=== PATIENT | male | born 1945 | race Caucasian/White ===

== ENCOUNTER → 2017-09-08 11:58 | Outpatient (CLI) | payer MEDICARE, BC, SELFPAY ==
--- NOTE | 2017-09-08 12:04 | RAD_ITS ---
STUDY: X-RAY - RIGHT SHOULDER REASON FOR EXAM: Male, 72 years old. No known injury. Right shoulder pain TECHNIQUE: 4 view(s) of the shoulder. COMPARISON: None. FINDINGS: Normal glenohumeral articulation. There is degenerative arthrosis of the acromioclavicular joint without inferior osseous spur formation. Normal acromion. Normal humeral head and visualized proximal humerus. The soft tissue structures are unremarkable. Normal visualized pulmonary apex. RAD/Shoulder min 2 Views IMPRESSION: Degenerative changes without acute findings Electronically Signed: Kanu العلي DO at 18:56 EST Tel , Service support ,
== END ==
PROVIDERS: Family Provider Family Medicine; PCP Family Medicine; Visit Provider Family Medicine
DX: M25.511 Pain in right shoulder (principal)
CPT/HCPCS: 73030

== ENCOUNTER 2017-10-16 12:00 | Outpatient (RCR) | payer MEDICARE, BC, SELFPAY ==
--- NOTE | 2017-10-16 12:27 | HP.PTDCSUM ---
HP - PT D/C Summary It has been my pleasure to treat JEROME KRUGER under orders from DR.PNIELS Dheeraj for the diagnosis of Right Shoulder Pain for a total of 8 visit(s). Discharge Date: 10/16/17 Please see the following information for a summary of their discharge status. - Subjective Subjective: Seen happy with progress. ADLS' AND HOUSEWORK TASKS - Pain R SH Pain Intensity (Out of 10): 0 - Overall Improvement % Improvement: 100 - Objective Objective/Function: POSTURE: WFL. AROM: Shoulder flexion/abd 170 degrees ,ER 90. MMT: RTC/DELTOID 4/5. NUREO: intact. PALPATION: unremarkable - Goals Goal 1:: Patient will be I with HEP and progression Goal Progress: Goal Met Goal 2:: Patient will maintain proper posture t/o tx session to demo increased scap s/s Goal Progress: Goal Met Goal 3:: Patient will demo 5/5 strength in right UE Goal Progress: Goal Met Goal 4:: Patient will report 0/10 pain for 1 week Goal Progress: Goal Met - Plan Plan: D/C TO HEP - D/C Information Discharge Comments: MET GOALS, If there are questions or concerns regarding this patient's physical therapy, please feel free to call me at [phone]. Thank you for the referral of this patient. Sincerely, Kelvin Romo, PT,
== END 2017-10-16 19:00 | disposition home or self-care (01) ==
LOC: PT 12:00
PROVIDERS: Family Provider Family Medicine; PCP Family Medicine; Visit Provider Family Medicine
DX: M25.511 Pain in right shoulder (principal)
CPT/HCPCS: 97110; 97162; 97530

== ENCOUNTER → 2017-12-04 09:42 | Outpatient (CLI) | payer MEDICARE, BC, SELFPAY ==
--- NOTE | 2017-12-04 09:43 | AAAS_ITS ---
Reason For Study: AAA Aorta Measurements Aorta Doppler Measurements Proximal aorta measures2.3 x 2.3cm. in cross- Peak systolic flow velocities within the proximal sectional axis. aorta measure 67.5 cm/sec. Proximal aorta measures2.3cm. in longitudinal Peak systolic flow velocities within the mid axis. aorta measure 83.0 cm/sec. Mid aorta measures1.9 x 1.9cm. in cross-sectionalPeak systolic flow velocities within the distal axis. aorta measure 47.7 cm/sec. Mid aorta measures1.9cm. in longitudinal axis. Distal aorta measures1.7 x 1.7cm. in cross- sectional axis. Distal aorta measures1.8cm. in longitudinal axis. Procedure Aorta IVC Iliac vasculature or bypass grafts [id number]. Technically difficult due to body habitus and bowel gas. Iliac arteries not visualized. Exam performed in department. Interpretation Summary Maximal aortic diameter proximally at 2.3 x 2.3 cm. Normal flow velocities. Iliac arteries could not be visualized secondary to body habitus Ordering Physician: Avery Horn Referring Physician: Avery Horn Performed By: Rocio Montana RVT
[2017-12-04 10:54] LABS: AST(SGOT) 21 U/L (15-37); Alanine Aminotransfer ALT/SGPT 25 U/L (16-61); Albumin, Serum 3.7 g/dL (3.2-5.0); Alkaline Phosphatase 36 U/L (45-117); Bilirubin, Direct 0.12 mg/dL (0.00-0.30); Cholesterol 121 mg/dL (200); Globulin 3.2 g/dL (2.2-4.2); High Density Lipoprotein 42 mg/dL; Protein, Total 6.9 g/dL (6.4-8.2); Triglycerides 105 mg/dL; Very Low Density Lipoprotein 21 mg/dL (5-40)
== END ==
PROVIDERS: Internal Medicine Cardiovascular Disease; Family Provider Family Medicine; PCP Family Medicine; Visit Provider Surgery
DX: I71.4 Abdominal aortic aneurysm, without rupture (principal); E78.5 Hyperlipidemia, unspecified; Z79.899 Other long term (current) drug therapy
CPT/HCPCS: 36415; 76706; 80061; 80076

== ENCOUNTER → 2018-01-06 11:41 | Outpatient (CLI) | payer MEDICARE, BC, SELFPAY ==
--- NOTE | 2018-01-06 11:45 | RAD_ITS ---
STUDY: X-RAY - LEFT WRIST REASON FOR EXAM: Wrist pain. TECHNIQUE: 3 view(s) of the wrist were obtained. COMPARISON: None. FINDINGS: Normal visualized distal radius and ulna. Normal radiocarpal articulation. Normal distal radioulnar articulation. Normal carpal bones. Normal carpal articulations. Normal carpometacarpal articulation of the thumb. Normal second through fifth carpometacarpal articulations. Normal visualized metacarpal bones. There are very small calcifications at the ulnar aspect of the ulnar styloid process. RAD/Wrist min 3 Views IMPRESSION: Very small soft tissue calcifications. Otherwise, unremarkable x-ray examination of the left wrist. Electronically Signed: Willie Aguilera MD at 12:28 EDT Tel , Service support ,
--- NOTE | 2018-01-06 11:45 | RAD_ITS ---
STUDY: X-RAY - RIGHT WRIST REASON FOR EXAM: Wrist pain. TECHNIQUE: 3 view(s) of the wrist were obtained. COMPARISON: None. FINDINGS: Normal visualized distal radius and ulna. Normal radiocarpal articulation. Normal distal radioulnar articulation. Normal carpal bones. Normal carpal articulations. Normal carpometacarpal articulation of the thumb. Normal second through fifth carpometacarpal articulations. Normal visualized metacarpal bones. The soft tissue structures are unremarkable. RAD/Wrist min 3 Views IMPRESSION: Unremarkable x-ray examination of the right wrist. Electronically Signed: Willie Aguilera MD at 12:29 EDT Tel , Service support ,
== END ==
PROVIDERS: Family Provider Family Medicine; PCP Family Medicine; Visit Provider Family Medicine
DX: M25.531 Pain in right wrist (principal); M25.532 Pain in left wrist; R73.09 Other abnormal glucose
CPT/HCPCS: 36415; 73110; 83036

== ENCOUNTER 2018-02-07 16:07 | Emergency (ER) | payer MEDICARE, BC, SELFPAY ==
[2018-02-07 16:08] VITALS: BP 146/62; PULSE 69; RESP 15; TEMP 36.6; O2SAT 98; BMI 33.5
--- NOTE | 2018-02-07 16:27 | ED.DCSUM_ITS ---
- ER Visit Summary Date of Service: 02/07/18 Chief Complaint: Back pain History of Present Illness: The patient is a 72 M who was making the bed this morning and when he bent over he started having back pain. He states he has pain in the lumbar part of his back. He has had pain in this area previously. Is worse with movement and better when he remains still. No paresthesias, bowel or bladder incontinence. He denies any fevers. He did take aspirin but it did not help his pain. Physical Examination: Vital signs reviewed. Heart is regular. Lungs are clear. Abdomen soft. Back is tender in the lumbar region diffusely. Neurologic exam is normal. Test Results: None indicated Emergency Department Course and Treatment: Patient was given morphine subcutaneously here. He had improvement with this. He tells me he does not want any narcotics for pain at home. I will give him Tylenol with lidocaine patches for his back. He will stretch will follow up with his primary care physician Treatment Plan: [] Disposition: Discharge Impression: Lumbar back pain This note was generated with [employer] dictation software. It may contain incorrect words, spelling, and punctuation that were not noted in review of the chart prior to signing ED Disposition - Plan for ED Patient: Chief Complaint: Back Referrals: Rodo Zamorano MD [Primary Care Provider] -
[2018-02-07] MEDS: morphine 8 MG/ML Syringe SC (16:34)
--- NOTE | 2018-02-07 16:41 | ED.DEP ---
ED Disposition - Plan for ED Patient: Disposition: Home or Assisted Living Chief Complaint: Back Instructions: ED Neck Back Pain General Prescriptions: Acetaminophen [Tylenol] 650 mg PO TID #30 tab Lidocaine [Lidoderm Patch] 1 patch TOPICAL BID.TCU #20 patch Referrals: Rodo Zamorano MD [Primary Care Provider] -
== END 2018-02-07 16:53 | disposition home or self-care (01) ==
PROVIDERS: Emergency Provider Emergency Medicine; Family Provider Family Medicine; PCP Family Medicine
DX: M54.5 Low back pain (principal); I25.10 Atherosclerotic heart disease of native coronary artery without angina pectoris; I10 Essential (primary) hypertension; E78.00 Pure hypercholesterolemia, unspecified; Z72.0 Tobacco use; Z79.899 Other long term (current) drug therapy
CPT/HCPCS: 96372; 99282

== ENCOUNTER 2018-02-17 08:16 | Inpatient (IN) | payer MEDICARE, BC, SELFPAY ==
[2018-02-17 08:18] VITALS: BP 164/65; PULSE 61; RESP 24; TEMP 36.1; O2SAT 100; BMI 33.4
[2018-02-17] MEDS: morphine 10 MG/ML Syringe 8 MG SC (09:01)
[2018-02-17] MEDS: Ondansetron 4 MG/2 ML Vial IM (09:02)
[2018-02-17] MEDS: Orphenadrine 60 MG/2 ML Ampul IM (09:02)
--- NOTE | 2018-02-17 09:08 | RAD_ITS ---
STUDY: X-RAY - LUMBAR SPINE REASON FOR EXAM: Male, 72 years old. NO KNOWN RECENT INJURY. PAIN IN LOWER BACK FOR A LONG TIME. HX OF LOWER BACK SURGERY TO CLEAN IT OUT PER PATIENT. TECHNIQUE: 3 view(s) of the lumbar spine were obtained. COMPARISON: None FINDINGS: Normal lumbar lordosis. There is no substantial scoliosis. There is a normal alignment of the vertebrae. There is diffuse demineralization with multi-level endplate spondylosis. There is multi-level degenerative disc disease with multi-level disc space narrowing. There is atherosclerotic calcification of the abdominal aorta without a demonstrated aneurysm. RAD/Lumbar Spine 2 or 3 Views IMPRESSION: Degenerative changes of the spine, as detailed above. Electronically Signed: Vicente Obrien MD at 9:50 EDT Tel , Service support ,
[2018-02-17] MEDS: HYDROcodone Bitartrate/Apap 5/325 Tablet PO (09:59)
--- NOTE | 2018-02-17 11:50 | ED.VISSUMM ---
- ER Visit Summary Date of Service: 02/17/18 Chief Complaint: Pain History of Present Illness: The patient is a 72 M with low back pain since Friday after he was making his bed. Patient had been bending. He was seen in the ED and treated with morphine. He was treated at home with lidocaine patches and Tylenol. His pain has not improved. Today his pain was worse. The pain is in his lower back. It does not radiate. He denies any weakness or numbness. The pain has been so severe that it causes nausea. He has a history of remote lumbar surgery where he had his nerves cleaned. This was over 5 years ago. No other back surgeries. No change in bowel or bladder. No fevers or rash. Physical Examination: Afebrile and vital signs unremarkable except for hypertension. The patient appears very uncomfortable with every movement. Heart regular. Lungs clear. Abdomen soft and nontender. No masses. Back shows diffuse lumbar tenderness to palpation. There is a midline lumbar scar which appears old. Straight leg raise is negative. He is neurovascularly intact distally in both lower extremities. Skin appears normal. Test Results: X-rays obtained at this visit. They were unremarkable for anything acute. He does have degenerative changes. Emergency Department Course and Treatment: Patient received morphine subcutaneous and Zofran. I also treated him with Norflex. He had minimal improvement in his pain. He received additional Valentine. His pain went from a 10 to an 8. He continued to have pain, worse with movement. No new or worsening symptoms. I suspect this is all myofascial pain. He has no other red flag symptoms or signs. He will likely need IV pain medication and possibly physical therapy. I suspect that he will not do well on oral pain medications at home. I called the hospitalist to admit. Treatment Plan: As above Disposition: Admission Impression: 1. Intractable lumbar back pain This note was generated with [employer] dictation software. It may contain incorrect words, spelling, and punctuation that were not noted in review of the chart prior to signing ED Disposition - Plan for ED Patient: Chief Complaint: Back Referrals: Rodo Zamorano MD [Primary Care Provider] -
--- NOTE | 2018-02-17 12:29 | PCM.HP.STD ---
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 The patient is a 72 year old M with past medical history as mentioned above presented to the emergency room because of worsening low back pain. 5 days ago, he was making his bed, bending forward and he started having sudden onset low back pain. On that day, he came to the emergency department and he was discharged home on lidocaine patch and Tylenol. Since then, he has been complaining of persistent low back pain, sharp pain, 10 out of 10 in severity, not radiating, aggravated by movement or bending forward, relieved by rest and without associated symptoms. He denied associated focal leg weakness, numbness or tingling. He denied bowel or bladder incontinence. He denies significant trauma or mechanical fall. He has history of back surgery 5 years ago and he mentioned that it was minor surgery. No documents available. In the emergency department, his blood pressure was slightly elevated because of pain, otherwise his vitals are stable. His routine blood work was unremarkable. X-ray of the lumbar spine revealed multilevel degenerative disc disease and space now, no acute fractures or dislocations. He received IV morphine, IV hydromorphone and [place] in the ER without improvement. He is being admitted for intractable low back pain and debility for treatment and evaluation. 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 (Chronic) AAA (abdominal aortic aneurysm) (Chronic) PVD (peripheral vascular disease) (Chronic) Hyperlipemia (Chronic) Hypertension (Chronic) CAD (coronary artery disease) (Chronic) Medical History: Medical History (Last Updated 02/17/18 @ 12:40 by Shahzad Carbone MD) Encounter for long-term current use of high risk medication (Chronic) Z79.899 Nicotine abuse (Chronic) Z72.0 Aortic stenosis (Chronic) I35.0 Bilateral carotid artery stenosis (Chronic) I65.23 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 (Chronic) I25.10 AAA (abdominal aortic aneurysm) (Chronic) I71.4 PVD (peripheral vascular disease) (Chronic) I73.9 Hyperlipemia (Chronic) E78.5 Hypertension (Chronic) I10 CAD (coronary artery disease) (Chronic) I25.10 Claudication I73.9 Dyspnea R06.00 Obesity E66.9 Shortness of breath R06.02 Allergies etodolac [Etodolac] Allergy (Verified 02/17/18 08:17) Unknown pregabalin [From Lyrica] Allergy (Verified 02/17/18 08:17) Unknown Home Medications: Ambulatory Orders Medication Instructions Recorded atorvastatin 80 mg tablet 80 mg PO QHS #90 tab 10/16/17 nitroglycerin 0.4 mg sublingual 0.4 mg SUBLINGUAL Q5M PRN #25 tab 12/09/17 tablet amlodipine 10 mg-benazepril 20 mg 1 cap PO DAILY #90 cap 12/15/17 capsule carvedilol 6.25 mg tablet 6.25 mg PO BID #180 tab 12/15/17 clopidogrel 75 mg tablet 75 mg PO DAILY #90 tab 12/15/17 esomeprazole magnesium 40 mg 40 mg PO DAILY #90 cap 12/15/17 capsule,delayed release isosorbide mononitrate ER 30 mg 30 mg PO DAILY #90 tab 12/15/17 tablet,extended release 24 hr Acetaminophen [Tylenol] 650 mg PO TID #30 tab 02/07/18 Aspirin 81 mg PO PRN PRN 02/07/18 Lidocaine [Lidoderm Patch] 1 patch TOPICAL BID.TCU #20 patch 02/07/18 Surgical History: Surgical History (Last Updated 02/17/18 @ 12:40 by Shahzad Carbone MD) Presence of coronary angioplasty implant and graft (Chronic) Z95.5 PTCA of LAD cypher stent 2004; [facility] with PTCA Promus stent to mid RCA 03/07/10; Surgical History: appendectomy, - - Catheterization and stenting, back surgery, shoulder surgery, bilateral carotid endarterectomy, bowel resection Psychiatric History: No pertinent psych hx Lives: Spouse/ Significant Other Smoking Status: Current every day smoker Alcohol: Rare Drugs: None - *Family History Sibling Family History: Family History (Last Reviewed 12/09/17 @ 09:36 by Norma Solorio) Brother Hypertension Sister Hypertension History Items: Hypertension Maternal Family History: Family History (Last Reviewed 12/09/17 @ 09:36 by Norma Solorio) Brother Hypertension Sister Hypertension History Items: No pertinent history Paternal Family History: Family History (Last Reviewed 12/09/17 @ 09:36 by Norma Solorio) Brother Hypertension Sister Hypertension History Items: No pertinent history Review of Systems Constitutional: Denies: Anorexia, Chills, Fever, Weakness Eyes: Denies: Blurred vision, Double vision, Drainage, Redness HEENT: Denies: Difficulty Hearing, Ear Pain, Eye Pain, Nasal Congestion, Sore Throat Cardiovascular: Denies: Chest Pain, Chest Pressure, Heaviness, Light Headedness, Palpitations, Syncope Respiratory: Denies: Cough, Pleuritic Pain, Shortness of Breath, Sputum production, Wheezing Gastrointestinal: Denies: Abdominal Pain, Constipation, Diarrhea, Nausea, Vomiting Genitourinary: Denies: Dysuria, Frequency, Hematuria Musculoskeletal: Reports: Back Pain. Denies: Arm Pain, Foot Pain Skin: Denies: Dryness, Rash Neurological: Denies: Balance problems, Double vision, Change in Speech, Slurred speech, Confusion, Headaches, Incoordination, Numbness, Tingling Psychiatric: Denies: Anxiety, Depression Endocrine: Denies: Change in Body Habitus, Polydipsia VTE Information - Inpt Only VTE Present on Admission: No VTE Mechan Device Prophylaxis: None VTE Pharm Prophylaxis ordered?: Yes - Physical Exam General: Alert, Oriented x3, Cooperative, No apparent distress HEENT: Atraumatic, PERRLA, EOMI, Normocephalic Oral: Moist Mucosa, No Gingival or Mucosal Lesions/ Ulcerations Neck: Supple, No JVD, Negative Carotid Bruits, Trachea Midline, Thyroid Normal Size and Texture Lungs: Clear to auscultation, No rhonchi, No wheeze, No rales, Diminished Cardiovascular: Regular rate, Regular Rhythm, Normal S1, Normal S2, PMI Normal Abdomen: Bowel Sounds Present, Soft, Non Tender, Non-Distended, No Hepato-splenomegaly Extremities: No clubbing, No cyanosis, Edema - Trace edema. Skin: No rashes, No breakdown Lymphatic: No Cervical, Supraclavicular, or Inguinal Adenopathy Neurological: Cranial nerves II-XII grossly intact, Motor Exam 5/5 strength throughout Psych/Mental Status: Normal Affect, Appropriate, Alert and oriented to time, place, person, mood and affect Vital Signs Temp Pulse Resp BP Pulse Ox 97 F L 61 24 H 164/65 H 100 02/17/18 08:18 02/17/18 08:18 02/17/18 08:18 02/17/18 08:18 02/17/18 08:18 Weight: 220 lb Body Mass Index (BMI) 33.4 Clinical Impression(s) from Imaging Studies Lumbar Spine X-Ray 02/17/18 09:08 IMPRESSION: Degenerative changes of the spine, as detailed above. Electronically Signed: Vicente Obrien MD at 9:50 EDT Tel , Service support , Laboratory Tests 02/17/18 02/17/18 Range/Units 12:15 12:00 WBC 6.1 (4.4-11.0) K/mm3 RBC 4.34 L (4.6-6.2) M/mm3 Hgb 12.3 L (13.0-16.5) g/dl Hct 37.4 L (40-54) % MCV 86.2 (80-94) fL MCH 28.3 (27.0-32.0) pg MCHC 32.9 (32-36) g/gl RDW 14.6 (11.6-14.6) % RDW Differential 45.9 H (35.1-43.9) fl Plt Count 208 (150-450) K/mm3 MPV 9.6 (6.2-12.0) fl Immature Gran % (Auto) 0.200 (0.0-0.9) % Neut % (Auto) 53.3 (47-70) % Lymph % (Auto) 35.6 (19-41) % Harris % (Auto) 5.1 (0-10) % Eos % (Auto) 5.1 H (0-5) % Baso % (Auto) 0.7 (0-1) % Absolute Neuts (auto) 3.3 (2.0-7.7) X10^3/uL Absolute Lymphs (auto) 2.18 (0.83-4.51) X10^3/ul Total Counted Not Reportable Sodium 143 (136-145) mmol/L Potassium 3.9 (3.5-5.1) mmol/L Chloride 110 H (98-107) mmol/L Carbon Dioxide 28.0 (21.0-32.0) mmol/L Anion Gap 5 (5-15) BUN 9 (7-18) mg/dL Creatinine 0.68 L (0.70-1.30) mg/dL Estim Creat Clear Calc 64.60 ml/min Est GFR (MDRD) Af Amer 147 (>60) mL/min Est GFR (MDRD) Non-Af 121 (>60) mL/min BUN/Creatinine Ratio 13.2 (10-20) RATIO Glucose 95 (74-106) mg/dL Calcium 8.9 (8.5-10.1) mg/dL Assessment/Plan This is a 72 years old male patient presented to the emergency department because of worsening low back pain, came to the ED a few days ago was discharged on lidocaine patch and Tylenol and is doing better because of worsening low back pain and is being admitted for intractable low back pain for treatment and evaluation. #1 intractable low back pain/debility/difficulty ambulating: Pain started when he was making his bed and bending forward 5 days ago, has been getting worse. History of back surgery in the past. Received IV morphine and hydromorphone in the ER without improvement. He has been having difficulties ambulating and getting around. No evidence of radiculopathy. Plan: Admit to [facility] floor, IV Dilaudid as needed for pain, OxyIR as needed, Flexeril as needed, CT scan lumbar spine, ambulate as tolerated, PT OT evaluation and treatment. #2 CAD status post stents: Stable, no acute issues. Continue aspirin, statins, Coreg and Plavix as well as lisinopril and isosorbide mononitrate. #3 hypertension: Blood pressure slightly elevated, likely because of pain. Plan to continue Norvasc, Coreg and lisinopril. #4 hyperlipidemia: Continue statins. #5 peripheral vascular disease: Continue aspirin, Plavix and statins. #6 history of AAA: Stable, no acute issues. #7 DVT prophylaxis: Subcu Lovenox. This note was generated with [employer] dictation software. It may contain incorrect words, spelling, and punctuation that were not noted in checking the note before signing. Code Visit Inpatient E&M: 28967 Init Hosp L3
[2018-02-17 12:37] VITALS: BP 182/67; PULSE 67; RESP 18; O2SAT 98
--- NOTE | 2018-02-17 12:48 | CM.ED ---
Social Work Note Into complete initial assessment as pt is to be admitted. Introduced self and role at [facility]. The pt reports to live with his , Norma, in a one level efficiency apartment with one JENNY. Denies access issues at his baseline and reports to be independent with ADL's. He has been using a cane for ambulation the last week. Also has a CPAP machine and gets oxygen through [facility]. Confirms that his PCP is Dr. Zamorano and his combo welder is Dr. Perry. Preferred pharmacy is [facility]. Denies having advanced directives and declines information at this time. Does not anticipate needs at discharge, but is made aware that RN YVONNE or TYLER is available on his assigned unit to assist with any discharge needs. Melissa Bryant, ASSOCIATE ENTERTAINMENT EDITOR, [employer]
--- NOTE | 2018-02-17 13:11 | CT_ITS ---
STUDY: CT LUMBAR SPINE WITHOUT CONTRAST REASON FOR EXAM: Male, 72 years old. Lower back pain RADIATION DOSAGE (If Supplied By Facility): CTDIvol = ( 30.00 ) mGy, DLP = ( 1237.11 ) mGycm TECHNIQUE: The patient was scanned in a multi detector CT scanner. High resolution transaxial imaging was performed. Sagittal and coronal images were reconstructed. Individualized dose optimization techniques were used for this CT. COMPARISON: MRI lumbar spine 09/23/2013. Lumbar spine x-ray 09/20/2013. FINDINGS: Limited evaluation of the retroperitoneum reveals no acute abnormalities. There is prominent aortoiliac atherosclerosis. There is mild aneurysmal ectasia of the infrarenal abdominal aorta, bilobed morphology, measuring up to 3.1 cm in diameter. There is mild ectasia of the right common iliac artery up to 1.4 cm. The left measures 1.1 cm. Mild SI joint degenerative changes, symmetric. Generalized osteopenia. Psoas and paraspinous muscles appear normal. There is no evidence of spinal canal stenosis. Mild scoliosis. Normal lordosis. Normal vertebral body height and alignment. Mild disc narrowing at L1-L2, L2-L3 with minimal annular disc bulging and no stenosis. L3-L4 no disc narrowing but with minimal annular disc bulging, no stenosis. Next line L4-L5 mild disc narrowing, annular disc bulge, with a small posterior midline central disc herniation/protrusion. The disc herniation measures approximately 8 mm anterior-posterior, 7.5 mm transverse, and 9 mm craniocaudal. Minimally impinging the anterior margin of the thecal sac. No significant lateral recess or foraminal stenosis. Next line L5-S1 no disc narrowing, minimal posterior disc bulging, minimal foraminal narrowing. CT/Spine Lumbar without Contrast IMPRESSION: Disc protrusion/herniation at L4-L5 not apparently contributing to stenosis. Otherwise mild lumbar spondylosis without further stenosis. No evidence of acute fracture or traumatic subluxation. Mild aneurysmal ectasia of the infrarenal abdominal aorta. Prominent atherosclerosis. Electronically Signed: Virgil Pruett, at 16:23 EDT Tel , Service support ,
[2018-02-17 13:12] VITALS: BMI 33.3; BMI 33.4
[2018-02-17 13:19] VITALS: BP 166/52; PULSE 65; RESP 16; TEMP 36.4; O2SAT 100
[2018-02-17 13:32] LABS: Absolute Lymphocyte Count 2.18 X10^3/ul (0.83-4.51); Absolute Neutrophil Count 3.3 X10^3/uL (2.0-7.7); Basophil# 0.04 X10^3/uL; Basophil% 0.7 % (0-1); Eosinophil# 0.31 X10^3/uL; Eosinophils% 5.1 % (0-5); Hematocrit 37.4 % (40-54); Hemoglobin 12.3 g/dl (13.0-16.5); Lymphocyte # 2.18 X10^3/ul (4.0); Lymphocyte % 35.6 % (19-41); Mean Corp Hgb Conc 32.9 g/gl (32-36); Mean Corpuscular Hgb 28.3 pg (27.0-32.0); Mean Corpuscular Volume 86.2 fL (80-94); Mean Platelet Vol. 9.6 fl (6.2-12.0); Monocyte# 0.31 X10^3/uL; Monocyte% 5.1 % (0-10); Neutrophil # 3.28 X10^3/uL (2.7-7.7); Neutrophil % 53.3 % (47-70); Platelet Count 208 K/mm3 (150-450); RBC Distribution Width CV 14.6 % (11.6-14.6); RBC Distribution Width SD 45.9 fl (35.1-43.9); Red Blood Count 4.34 M/mm3 (4.6-6.2); White Blood Count 6.1 K/mm3 (4.4-11.0)
[2018-02-17 13:33] LABS: POSITIVE COUNT NO; POSITIVE DIFFERENTIAL NO; POSITIVE MORPHOLOGY NO
[2018-02-17 13:41] LABS: Anion Gap 5 (5-15); BUN 9 mg/dL (7-18); BUN/Creat Ratio 13.2 RATIO (10-20); Calcium,Total 8.9 mg/dL (8.5-10.1); Chloride 110 mmol/L (98-107); Creatinine, Serum 0.68 mg/dL (0.70-1.30); EST Glomerular Filtration Rate 121 mL/min (>60); Est Glom Filt Rate - Afr Amer 147 mL/min (>60); Glucose 95 mg/dL (74-106); Potassium 3.9 mmol/L (3.5-5.1); Sodium Level 143 mmol/L (136-145)
[2018-02-17] MEDS: 0.9% NaCl Peripheral Flush Adult/Peds IV (14:48)
[2018-02-17] MEDS: HYDROmorphone 1 MG/ML Syringe IV (14:49)
[2018-02-17] MEDS: Lisinopril 20 MG Tablet PO (14:51)
[2018-02-17] MEDS: Pantoprazole Sodium 40 MG Tablet PO (14:52)
[2018-02-17] MEDS: amLODIPine 10 MG Tablet PO (14:52)
[2018-02-17] MEDS: Isosorbide Mononitrate 30 MG Tablet PO (14:53)
[2018-02-17] MEDS: Clopidogrel Bisulfate 75 MG Tablet PO (14:53)
[2018-02-17 18:17] VITALS: BP 122/53; PULSE 55; RESP 18; TEMP 36.9; O2SAT 100
[2018-02-17] MEDS: Carvedilol 6.25 MG Tablet PO (18:19)
[2018-02-17] MEDS: oxyCODONE 5 MG Tablet PO (18:21)
[2018-02-17] MEDS: Atorvastatin Calcium 80 MG Tablet PO (19:50)
[2018-02-17 20:30] VITALS: BP 137/52; PULSE 58; RESP 16; TEMP 36.8; O2SAT 95
[2018-02-18 02:30] VITALS: BP 117/46; PULSE 66; RESP 16; TEMP 37.2; O2SAT 94
[2018-02-18 08:01] VITALS: O2SAT 94
--- NOTE | 2018-02-18 09:15 | NURSING ---
Dr. Carbone called this RN and states that patient may be discharged if able to walk around unit without any pain. Therapy worked with patient- had him up walking and patient denies pain.
--- NOTE | 2018-02-18 09:27 | PCM.DC ---
You will use the following diet at home:: Cardiac Your food should be the consistency of: Regular Discharge Activity: Return to Normal Activity, May not drive while taking narcotic pain medications. Weight Bearing Status: Weight bearing as tolerated Call your doctor if you observe: Fever of 101 or Higher, Numbness or Tingling, Shortness of breath, Dizziness, Fainting spells, Chest pain, Increased palpitations (irregular heartbeat), Uncontrolled pain Instructions: Back Safety: Bending, Relieving Back Pain Allergies/Adverse Reactions: Allergies etodolac [Etodolac] Allergy (Verified 02/17/18 08:17) Unknown pregabalin [From Lyrica] Allergy (Verified 02/17/18 08:17) Unknown Medications to take at Discharge atorvastatin 80 mg tablet 80 mg PO QHS #90 tab 10/16/17 nitroglycerin 0.4 mg sublingual tablet 0.4 mg SUBLINGUAL Q5M PRN #25 tab 12/09/17 amlodipine 10 mg-benazepril 20 mg capsule 1 cap PO DAILY #90 cap 12/15/17 clopidogrel 75 mg tablet 75 mg PO DAILY #90 tab 12/15/17 esomeprazole magnesium 40 mg capsule,delayed release 40 mg PO DAILY #90 cap 12/15/17 isosorbide mononitrate ER 30 mg tablet,extended release 24 hr 30 mg PO DAILY #90 tab 12/15/17 Acetaminophen [Tylenol] 650 mg PO TID #30 tab 02/07/18 Aspirin 81 mg PO PRN PRN 02/07/18 Lidocaine [Lidoderm Patch] 1 patch TOPICAL BID.TCU #20 patch 02/07/18 Coreg 6.25 mg PO DAILY 02/17/18 Cyclobenzaprine [Flexeril] 5 mg PO TID PRN PRN #14 tab 02/18/18 Oxycodone [Oxyir] 5 mg PO Q8H PRN PRN 4 Days #12 tab 02/18/18 The following prescriptions were given: Oxycodone [Oxyir] 5 mg PO Q8H PRN PRN 4 Days #12 tab PRN Reason: Severe Pain (6-10/10) Cyclobenzaprine [Flexeril] 5 mg PO TID PRN PRN #14 tab PRN Reason: Back/muscle pain, spasm Primary Care Physician: Rodo Zamorano MD [Primary Care Provider] - Please follow up with your Primary Care Physician in: 2-3 weeks. Test Results: Test results from this visit will be discussed in further detail at your follow-up appointment, if applicable.
[2018-02-18 09:28] VITALS: BP 134/43; PULSE 56; RESP 18; TEMP 36.4; O2SAT 98
--- NOTE | 2018-02-18 10:00 | NURSING ---
pt refused to take hospital meds- states he will take his when he gets home.
--- NOTE | 2018-02-18 13:03 | PCM.DC.SUM ---
Discharge Date and Diagnosis Date of Admission: 02/17/18 Date of Discharge: 02/18/18 - Primary Discharge Diagnosis #1 intractable low back pain/difficulty ambulating. #2 disc protrusion/herniation at L4-L5. - Secondary Discharge Diagnosis Chronic Problems (Last Updated 02/17/18 @ 12:40 by Shahzad Carbone MD) Encounter for long-term current use of high risk medication (Chronic) Nicotine abuse (Chronic) Aortic stenosis (Chronic) Presence of coronary angioplasty implant and graft (Chronic) PTCA of LAD cypher stent 2004; [facility] with PTCA Promus stent to mid RCA 03/07/10; Bilateral carotid artery stenosis (Chronic) Atherosclerotic heart disease of [place] coronary artery without angina pectoris (Chronic) AAA (abdominal aortic aneurysm) (Chronic) PVD (peripheral vascular disease) (Chronic) Hyperlipemia (Chronic) Hypertension (Chronic) CAD (coronary artery disease) (Chronic) Hospital Course and Treatment Imaging Results: Clinical Impression(s) from Imaging Studies Lumbar Spine X-Ray 02/17/18 09:08 IMPRESSION: Degenerative changes of the spine, as detailed above. Electronically Signed: Vicente Obrien MD at 9:50 EDT Tel , Service support , Lumbar Spine CT 02/17/18 13:11 IMPRESSION: Disc protrusion/herniation at L4-L5 not apparently contributing to stenosis. Otherwise mild lumbar spondylosis without further stenosis. No evidence of acute fracture or traumatic subluxation. Mild aneurysmal ectasia of the infrarenal abdominal aorta. Prominent atherosclerosis. Electronically Signed: Virgil Pruett at 16:23 EDT Tel , Service support , Operations: None Procedures: None Summary of Care Provided: Patient seen and examined on the day of discharge and appeared to be stable to be discharged home. He reported significant improvement of symptoms, no more back pain and he has been ambulated without any restrictions. His vital signs are stable. - Physical Exam General: Alert, Oriented x3, Cooperative, No apparent distress. HEENT: Atraumatic, PERRLA, EOMI. Neck: Supple, No JVD, Negative Carotid Bruits, Trachea Midline, Thyroid Normal. Lungs: Clear to auscultation, Normal air movement, No rhonchi, No wheeze, No rales. Cardiovascular: Regular rate, Regular Rhythm, Normal S1, Normal S2, PMI Normal. Abdomen: Bowel Sounds Present, Soft, Non Tender, Non-Distended, No Hepato-splenomegaly. Extremities: No clubbing, No cyanosis, No edema Skin: No rashes, No breakdown Neurological: Neuro grossly intact Vital Signs stable. Hospital course: The patient is a 72 year old M admitted after he returned to ED after few days for of intractable low back pain. 3 days before his admission, patient came to the emergency room because of low back pain that started when he was making his bed and bending forward. On that date, he was discharged home on lidocaine patch and Tylenol. Patient presented back to ED because of worsening low back pain and difficulty ambulating. He did not have symptoms suggestive of radiculopathy. Number spine x-ray revealed multilevel degenerative disc disease and narrowing. He was treated with IV Dilaudid, OxyIR as needed and Flexeril as well. CT scan lumbar spine revealed disc protrusion at L4-L5 without obvious stenosis, no acute fractures or dislocations, revealed mild disc narrowing at L1-L2 and L2-3. With above-mentioned treatment, patient symptoms improved and he was able to ambulate with a without any more back pain. His vital signs were stable. His routine blood work was unremarkable. Patient discharged home in a stable medical condition, discharged on OxyIR as needed for pain, Flexeril as needed for muscle spasm, recommended follow-up with PCP in 2 weeks. Discharge Activity: Return to Normal Activity, May not drive while taking narcotic pain medications. Weight Bearing Status: Weight bearing as tolerated Call your doctor if you observe: Fever of 101 or Higher, Numbness or Tingling, Shortness of breath, Dizziness, Fainting spells, Chest pain, Increased palpitations (irregular heartbeat), Uncontrolled pain Home Medications: Medications to take at Discharge atorvastatin 80 mg tablet 80 mg PO QHS #90 tab 10/16/17 nitroglycerin 0.4 mg sublingual tablet 0.4 mg SUBLINGUAL Q5M PRN #25 tab 12/09/17 amlodipine 10 mg-benazepril 20 mg capsule 1 cap PO DAILY #90 cap 12/15/17 clopidogrel 75 mg tablet 75 mg PO DAILY #90 tab 12/15/17 esomeprazole magnesium 40 mg capsule,delayed release 40 mg PO DAILY #90 cap 12/15/17 isosorbide mononitrate ER 30 mg tablet,extended release 24 hr 30 mg PO DAILY #90 tab 12/15/17 Acetaminophen [Tylenol] 650 mg PO TID #30 tab 02/07/18 Aspirin 81 mg PO PRN PRN 02/07/18 Lidocaine [Lidoderm Patch] 1 patch TOPICAL BID.TCU #20 patch 02/07/18 Coreg 6.25 mg PO DAILY 02/17/18 Cyclobenzaprine [Flexeril] 5 mg PO TID PRN PRN #14 tab 02/18/18 Oxycodone [Oxyir] 5 mg PO Q8H PRN PRN 4 Days #12 tab 02/18/18 Following Prescrptions Were Given to Patient: Oxycodone [Oxyir] 5 mg PO Q8H PRN PRN 4 Days #12 tab PRN Reason: Severe Pain (6-10/10) Cyclobenzaprine [Flexeril] 5 mg PO TID PRN PRN #14 tab PRN Reason: Back/muscle pain, spasm Primary Care Physician: Rodo Zamorano MD [Primary Care Provider] - Please follow up with your Primary Care Physician in: 2-3 weeks. Patient Instructions: Relieving Back Pain, Back Safety: Bending Disposition: Home Minutes spent on discharge:: 24 Patient Condition:: Stable Medical Necessity - Tobacco Use Smoking Status: Current every day smoker Tobacco Use: Cigarettes Meaningful Use Info Meaningful Use Diagnoses (Choose all that apply): None applicable Code Visit Inpatient E&M: 92456 Disch Hosp
--- NOTE | 2018-02-18 13:10 | DS.PCM_ITS ---
Discharge Date and Diagnosis Date of Admission: 02/17/18 Date of Discharge: 02/18/18 - Primary Discharge Diagnosis #1 intractable low back pain/difficulty ambulating. #2 disc protrusion/herniation at L4-L5. - Secondary Discharge Diagnosis Chronic Problems (Last Updated 02/17/18 @ 12:40 by Shahzad Carbone MD) Encounter for long-term current use of high risk medication (Chronic) Nicotine abuse (Chronic) Aortic stenosis (Chronic) Presence of coronary angioplasty implant and graft (Chronic) PTCA of LAD cypher stent 2004; [facility] with PTCA Promus stent to mid RCA ; Bilateral carotid artery stenosis (Chronic) Atherosclerotic heart disease of [place] coronary artery without angina pectoris (Chronic) AAA (abdominal aortic aneurysm) (Chronic) PVD (peripheral vascular disease) (Chronic) Hyperlipemia (Chronic) Hypertension (Chronic) CAD (coronary artery disease) (Chronic) Hospital Course and Treatment Imaging Results: Clinical Impression(s) from Imaging Studies Lumbar Spine X-Ray 02/17/18 09:08 IMPRESSION: Degenerative changes of the spine, as detailed above. Electronically Signed: Vicente Obrien MD at 9:50 EDT Tel , Service support , Lumbar Spine CT 02/17/18 13:11 IMPRESSION: Disc protrusion/herniation at L4-L5 not apparently contributing to stenosis. Otherwise mild lumbar spondylosis without further stenosis. No evidence of acute fracture or traumatic subluxation. Mild aneurysmal ectasia of the infrarenal abdominal aorta. Prominent atherosclerosis. Electronically Signed: Virgil Pruett at 16:23 EDT Tel , Service support , Operations: None Procedures: None Summary of Care Provided: Patient seen and examined on the day of discharge and appeared to be stable to be discharged home. He reported significant improvement of symptoms, no more back pain and he has been ambulated without any restrictions. His vital signs are stable. - Physical Exam General: Alert, Oriented x3, Cooperative, No apparent distress. HEENT: Atraumatic, PERRLA, EOMI. Neck: Supple, No JVD, Negative Carotid Bruits, Trachea Midline, Thyroid Normal. Lungs: Clear to auscultation, Normal air movement, No rhonchi, No wheeze, No rales. Cardiovascular: Regular rate, Regular Rhythm, Normal S1, Normal S2, PMI Normal. Abdomen: Bowel Sounds Present, Soft, Non Tender, Non-Distended, No Hepato- splenomegaly. Extremities: No clubbing, No cyanosis, No edema Skin: No rashes, No breakdown Neurological: Neuro grossly intact Vital Signs stable. Hospital course: The patient is a 72 year old M admitted after he returned to ED after few days for of intractable low back pain. 3 days before his admission, patient came to the emergency room because of low back pain that started when he was making his bed and bending forward. On that date, he was discharged home on lidocaine patch and Tylenol. Patient presented back to ED because of worsening low back pain and difficulty ambulating. He did not have symptoms suggestive of radiculopathy. Number spine x-ray revealed multilevel degenerative disc disease and narrowing. He was treated with IV Dilaudid, OxyIR as needed and Flexeril as well. CT scan lumbar spine revealed disc protrusion at L4-L5 without obvious stenosis, no acute fractures or dislocations, revealed mild disc narrowing at L1-L2 and L2-3. With above-mentioned treatment, patient symptoms improved and he was able to ambulate with a without any more back pain. His vital signs were stable. His routine blood work was unremarkable. Patient discharged home in a stable medical condition, discharged on OxyIR as needed for pain, Flexeril as needed for muscle spasm, recommended follow-up with PCP in 2 weeks. Discharge Activity: Return to Normal Activity, May not drive while taking narcotic pain medications. Weight Bearing Status: Weight bearing as tolerated Call your doctor if you observe: Fever of 101 or Higher, Numbness or Tingling, Shortness of breath, Dizziness, Fainting spells, Chest pain, Increased palpitations (irregular heartbeat), Uncontrolled pain Home Medications: Medications to take at Discharge atorvastatin 80 mg tablet 80 mg PO QHS #90 tab 10/16/17 nitroglycerin 0.4 mg sublingual tablet 0.4 mg SUBLINGUAL Q5M PRN #25 tab amlodipine 10 mg-benazepril 20 mg capsule 1 cap PO DAILY #90 cap 12/15/17 clopidogrel 75 mg tablet 75 mg PO DAILY #90 tab 12/15/17 esomeprazole magnesium 40 mg capsule,delayed release 40 mg PO DAILY #90 cap isosorbide mononitrate ER 30 mg tablet,extended release 24 hr 30 mg PO DAILY # 90 tab 12/15/17 Acetaminophen [Tylenol] 650 mg PO TID #30 tab 02/07/18 Aspirin 81 mg PO PRN PRN 02/07/18 Lidocaine [Lidoderm Patch] 1 patch TOPICAL BID.TCU #20 patch 02/07/18 Coreg 6.25 mg PO DAILY 02/17/18 Cyclobenzaprine [Flexeril] 5 mg PO TID PRN PRN #14 tab 02/18/18 Oxycodone [Oxyir] 5 mg PO Q8H PRN PRN 4 Days #12 tab 02/18/18 Following Prescrptions Were Given to Patient: Oxycodone [Oxyir] 5 mg PO Q8H PRN PRN 4 Days #12 tab PRN Reason: Severe Pain (6-10/10) Cyclobenzaprine [Flexeril] 5 mg PO TID PRN PRN #14 tab PRN Reason: Back/muscle pain, spasm Primary Care Physician: Rodo Zamorano MD [Primary Care Provider] - Please follow up with your Primary Care Physician in: 2-3 weeks. Patient Instructions: Relieving Back Pain, Back Safety: Bending Disposition: Home Minutes spent on discharge:: 24 Patient Condition:: Stable Medical Necessity - Tobacco Use Smoking Status: Current every day smoker Tobacco Use: Cigarettes Meaningful Use Info Meaningful Use Diagnoses (Choose all that apply): None applicable Code Visit Inpatient E&M: 75852 Disch Hosp
== END 2018-02-18 10:00 | disposition home or self-care (01) | DRG 552 ==
LOC: ED 09:39 → MS2 12:43
PROVIDERS: Admitting Provider Hospitalist; Emergency Provider Emergency Medicine; Family Provider Family Medicine; PCP Family Medicine; Visit Provider Hospitalist
DX: M51.26 Other intervertebral disc displacement, lumbar region (principal); M54.5 Low back pain; R53.81 Other malaise; R26.2 Difficulty in walking, not elsewhere classified; I25.10 Atherosclerotic heart disease of native coronary artery without angina pectoris; I10 Essential (primary) hypertension; E78.5 Hyperlipidemia, unspecified; I73.9 Peripheral vascular disease, unspecified; I65.23 Occlusion and stenosis of bilateral carotid arteries; F17.200 Nicotine dependence, unspecified, uncomplicated; Z95.5 Presence of coronary angioplasty implant and graft; Z86.79 Personal history of other diseases of the circulatory system; Z79.82 Long term (current) use of aspirin; Z79.899 Other long term (current) drug therapy
CPT/HCPCS: 72100; 72131; 80048; 85025; 97162; 97165; 99284; A4216; J2405

== ENCOUNTER → 2018-04-13 08:20 | Outpatient (CLI) | payer MEDICARE, BC, SELFPAY ==
[2018-04-13 10:22] LABS: Anion Gap 12 (5-15); BUN 15 mg/dL (7-18); BUN/Creat Ratio 19.4 RATIO (10-20); Calcium,Total 8.8 mg/dL (8.5-10.1); Chloride 107 mmol/L (98-107); Cholesterol 134 mg/dL (200); Creatinine, Serum 0.77 mg/dL (0.70-1.30); EST Glomerular Filtration Rate 105 mL/min (>60); Est Glom Filt Rate - Afr Amer 127 mL/min (>60); Glucose 115 mg/dL (74-106); High Density Lipoprotein 39 mg/dL; Potassium 3.8 mmol/L (3.5-5.1); Sodium Level 144 mmol/L (136-145); Triglycerides 169 mg/dL; Very Low Density Lipoprotein 34 mg/dL (5-40)
== END ==
PROVIDERS: Family Provider Family Medicine; PCP Family Medicine; Visit Provider Family Medicine
DX: I10 Essential (primary) hypertension (principal)
CPT/HCPCS: 36415; 80048; 80061

== ENCOUNTER 2018-06-02 13:25 | Emergency (ER) | payer MEDICARE, BC, SELFPAY ==
[2018-06-02 13:26] VITALS: BP 115/59; PULSE 60; RESP 16; TEMP 36.2; O2SAT 98; BMI 33.7
--- NOTE | 2018-06-02 13:28 | RAD_ITS ---
STUDY: X-RAY - RIGHT WRIST REASON FOR EXAM: Male, 72 years old. Pain. TECHNIQUE: 3 view(s) of the wrist were obtained. COMPARISON: None. FINDINGS: Normal visualized distal radius and ulna. Normal radiocarpal articulation. Normal distal radioulnar articulation. Normal carpal bones. Normal carpal articulations. Normal carpometacarpal articulation of the thumb. Normal second through fifth carpometacarpal articulations. Normal visualized metacarpal bones. Soft tissue swelling. RAD/Wrist min 3 Views IMPRESSION: Soft tissue swelling. Electronically Signed: Dennis Felipe MD at 14:08 EST Tel [phone], Service support ,
--- NOTE | 2018-06-02 13:35 | RAD_ITS ---
STUDY: X-RAY - RIGHT RADIUS AND ULNA REASON FOR EXAM: Male, 72 years old. Pain. TECHNIQUE: 2 view(s) of the forearm. COMPARISON: None. FINDINGS: There is no demonstrated soft tissue swelling. Normal visualized radius. Normal visualized ulna. RAD/Forearm 2 Views IMPRESSION: Normal x-ray examination of the radius and ulna. Electronically Signed: Dennis Felipe MD at 14:07 EST Tel [phone], Service support ,
--- NOTE | 2018-06-02 15:33 | ED.VISSUMM ---
- ER Visit Summary Date of Service: 06/02/18 Chief Complaint: Atraumatic right forearm pain for the past several weeks. His doctor was concerned for carpal tunnel syndrome. History of Present Illness: The patient is a 72 M who is right-handed presents with atraumatic right forearm pain for the past several weeks. He reports supination pronation makes the pain worse. He denies paresthesia, anesthesia or motor weakness. He has no history of autoimmune disorder. He denies fever, chills night sweats or weight loss. He denies respiratory or cardiac symptoms. He is on no anticoagulant. He denies prior history of problems. He states occasionally does wake up in night but has pain distal to rest. He is a smoker. He has multiple medical problems. Please read written note for complete detail. Physical Examination: Vital signs noted and normal. Examination of the right upper extremity reveals dry skin. There is no pain palpation over the proximal humerus, medial, lateral epicondyle or olecranon process. There is mild discomfort over the radial head. There is increased discomfort with supination pronation over the radial head. Supination pronation causes pain involving the entire right forearm. There is no pain the patient over the distal radius or ulna. There is no effusion. Flexion extension and abduction and adduction of the wrist causes no discomfort. There is no pain palpation of the carpal bones, metacarpal bones, or phalanges. Tinel's and Phalen test are negative. Radial pulses 2+. Test Results: Two-view x-ray of the right forearm was interpreted by me as negative. On the lateral there is no evidence of radial head fracture nor is there an anterior posterior fat pad noted. X-ray of the wrist was obtained as well per nurse protocol and reveals no abnormality i.e. fracture, subluxation avascular necrosis of the scaphoid etc. Emergency Department Course and Treatment: X-rays were ordered per nurse protocol. X-ray of the forearm and wrist was placed. Treatment Plan: Patient was prescribed opiate analgesia for his discomfort and referred to Dr. Trung Burgess. Disposition: Discharge with orthopedic follow-up Impression: Atraumatic right forearm pain unknown etiology. This note was generated with [employer]ation software. It may contain incorrect words, spelling, and punctuation that were not noted in review of the chart prior to signing ED Disposition - Plan for ED Patient: Disposition: Home or Assisted Living Chief Complaint: Upper Extremity Injury Instructions: ED Acute Pain [facility] Prescriptions: Hydrocodone Bitart/Apap 5-325 [[place] 5MG-325MG] 1 tab PO Q6H PRN PRN 3 Days #10 tab PRN Reason: Pain Referrals: Rodo Zamorano MD [Primary Care Provider] - Trung Burgess MD [STAFF PHYSICIAN] - 3-5 Days
--- NOTE | 2018-06-02 15:37 | ED.DCSUM_ITS ---
- ER Visit Summary Date of Service: 06/02/18 Chief Complaint: Atraumatic right forearm pain for the past several weeks. His doctor was concerned for carpal tunnel syndrome. History of Present Illness: The patient is a 72 M who is right-handed presents with atraumatic right forearm pain for the past several weeks. He reports supination pronation makes the pain worse. He denies paresthesia, anesthesia or motor weakness. He has no history of autoimmune disorder. He denies fever, chills night sweats or weight loss. He denies respiratory or cardiac symptoms. He is on no anticoagulant. He denies prior history of problems. He states occasionally does wake up in night but has pain distal to rest. He is a smoker. He has multiple medical problems. Please read written note for complete detail. Physical Examination: Vital signs noted and normal. Examination of the right up per extremity reveals dry skin. There is no pain palpation over the proximal humerus, medial, lateral epicondyle or olecranon process. There is mild discomfort over the radial head. There is increased discomfort with supination pronation over the radial head. Supination pronation causes pain involving the entire right forearm. There is no pain the patient over the distal radius or ulna. There is no effusion. Flexion extension and abduction and adduction of the wrist causes no discomfort. There is no pain palpation of the carpal bones, metacarpal bones, or phalanges. Tinel's and Phalen test are negative. Radial pulses 2+. Test Results: Two-view x-ray of the right forearm was interpreted by me as negative. On the lateral there is no evidence of radial head fracture nor is there an anterior posterior fat pad noted. X-ray of the wrist was obtained as well per nurse protocol and reveals no abnormality i.e. fracture, subluxation avascular necrosis of the scaphoid etc. Emergency Department Course and Treatment: X-rays were ordered per nurse protocol. X-ray of the forearm and wrist was placed. Treatment Plan: Patient was prescribed opiate analgesia for his discomfort and referred to Dr. Trung Burgess. Disposition: Discharge with orthopedic follow-up Impression: Atraumatic right forearm pain unknown etiology. This note was generated with [employer] software. It may contain incorrect words, spelling, and punctuation that were not noted in review of the chart prior to signing ED Disposition - Plan for ED Patient: Disposition: Home or Assisted Living Chief Complaint: Upper Extremity Injury Instructions: ED Acute Pain [facility] Prescriptions: Hydrocodone Bitart/Apap 5-325 [[place] 5MG-325MG] 1 tab PO Q6H PRN PRN 3 Days #10 tab PRN Reason: Pain Referrals: Rodo Zamorano MD [Primary Care Provider] - Trung Burgess MD [STAFF PHYSICIAN] - 3-5 Days
[2018-06-02] MEDS: HYDROcodone Bitartrate/Apap 5/325 Tablet PO (15:46)
[2018-06-02 15:47] VITALS: PULSE 61; O2SAT 99
== END 2018-06-02 15:52 | disposition home or self-care (01) ==
PROVIDERS: Emergency Provider Emergency Medicine; Family Provider Family Medicine; PCP Family Medicine
DX: M79.631 Pain in right forearm (principal); D89.89 Other specified disorders involving the immune mechanism, not elsewhere classified; I25.10 Atherosclerotic heart disease of native coronary artery without angina pectoris; I10 Essential (primary) hypertension; E78.00 Pure hypercholesterolemia, unspecified; Z72.0 Tobacco use; Z79.82 Long term (current) use of aspirin; Z79.891 Long term (current) use of opiate analgesic; Z79.899 Other long term (current) drug therapy
CPT/HCPCS: 73090; 73110; 99283

== ENCOUNTER → 2018-07-08 07:23 | Outpatient (CLI) | payer MEDICARE, BC, SELFPAY ==
[2018-07-08 08:28] LABS: AST(SGOT) 13 U/L (15-37); Alanine Aminotransfer ALT/SGPT 26 U/L (16-61); Albumin, Serum 3.8 g/dL (3.2-5.0); Alkaline Phosphatase 35 U/L (45-117); Cholesterol 132 mg/dL (200); Globulin 3.3 g/dL (2.2-4.2); High Density Lipoprotein 42 mg/dL; Protein, Total 7.1 g/dL (6.4-8.2); Triglycerides 161 mg/dL; Very Low Density Lipoprotein 32 mg/dL (5-40)
--- OUTSIDE RECORDS SUMMARY | 2018-08-24 02:31 | XMS RPT_ITS ---
:1945 Author Organization OHIP Support Name Relationship Address Phone NORMA KRUGER Unavailable [address] + [address] [place] [address] R Unavailable Unavailable Unavailable KRUGER, NORMA Unavailable [address] + [address] [place] [address] R Unavailable Unavailable Unavailable KRUGER, NORMA Unavailable [address] + [address] [place] [address] R Unavailable Unavailable Unavailable KRUGER, NORMA Unavailable [address] + [address] [place] [address] R Unavailable Unavailable Unavailable KRUGER, NORMA Unavailable [address] + [address] [place] [address] R Unavailable Unavailable Unavailable KRUGER, NORMA Unavailable [address] + [address] [place] [address] R Unavailable Unavailable Unavailable KRUGER, NORMA Unavailable [address] + [address] [place] [address] R Unavailable Unavailable Unavailable KRUGER, NORMA Unavailable [address] + [address] [place] [address] R Unavailable Unavailable Unavailable KRUGER, NORMA Unavailable [address] + [address] [place] [address] R Unavailable Unavailable Unavailable KRUGER, NORMA Unavailable [address] + [address] [place] [address] R Unavailable Unavailable Unavailable KRUGER, NORMA Unavailable [address] + [address] [place] [address] R Unavailable Unavailable Unavailable KRUGER, NORMA Unavailable [address] + [address] [place] [address] R Unavailable Unavailable Unavailable KRUGER, NORMA Unavailable [address] + [address] [place] [address] R Unavailable Unavailable Unavailable KRUGERFAITH STERNRY Unavailable [address] + [address] [place] [address] R Unavailable Unavailable Unavailable KRUGERFAITH STERNRY Unavailable [address] + [address] [place] [address] R Unavailable Unavailable Unavailable KRUGERFAITHRY Unavailable [address] + [address] [place] [address] R Unavailable Unavailable Unavailable KRUGER NORMA Unavailable [address] + [address] [place] [address] R Unavailable Unavailable Unavailable Care Team Providers Name Role Phone Shahram Perry Attending Unavailable Shahram Perry Referring Unavailable Zamorano, Rodo Primary Care Unavailable Shahram Perry Attending Unavailable Rodo Zamorano Referring Unavailable ZamoranoRodo schuster Attending Unavailable Zamorano, Rodo Referring Unavailable Zamorano, Rodo Primary Care Unavailable Rodo Zamorano Attending Unavailable Lona, Rodo Referring Unavailable Zamorano, Rodo Primary Care Unavailable Norma Solorio Attending Unavailable Norma Solorio Attending Unavailable CebuAvery haley Attending Unavailable CebuAvery haley Referring Unavailable Zamorano, Rodo Primary Care Unavailable Orlando, [place]et[place] Consulting Unavailable Yudith Patel Attending Unavailable Ventura Valdes Attending Unavailable Rodo Zamorano Referring Unavailable Zamorano, Rodo Primary Care Unavailable Avery Horn Attending Unavailable Ventura Escalante Attending Unavailable Ventura Escalante Referring Unavailable Zamorano, Rodo Primary Care Unavailable Zamorano, Rodo Primary Care Unavailable Carl Khalil Attending Unavailable Rodo Zamorano Primary Care Unavailable Ashelfah, Ghasem Admitting Unavailable Ashelfah, Ghasem Attending Unavailable Ashelfah, Ghasem Admitting Unavailable Ashelfah, Ghasem Attending Unavailable Lona, Rodo Primary Care Unavailable Ashelfah, Ghasem Consulting Unavailable Ashelfah, Ghasem Admitting Unavailable Ashelfah, Ghasem Attending Unavailable Lona, Rodo Primary Care Unavailable Ashelfah, Ghasem Consulting Unavailable Rodo Zamorano Attending Unavailable Zamorano, Rodo Primary Care Unavailable Zamorano, Rodo Primary Care Unavailable Greyson Reddy Attending Unavailable PROBLEMS PROBLEMS DATE TYPE CONDITION / CODE ATTENDING STATUS SOURCE 06/02/2018 Unknown M79.631 - Pain in ReddyAkasho Active [facility] right forearm / Community M79.631(ICD-10) Hospital Repository 06/02/2018 Unknown Z79.899 - Other Reddy, Greyson Active [facility] (current[facility] drug Hospital therapy / Repository Z79.899(ICD-10) 04/13/2018 Unknown I10 - Essential Rodo Zamorano Active [facility] (primary) Community hypertension / Hospital I10(ICD-10) Repository 02/18/2018 Unknown M54.5 - Low back Ashelfah, Active [facility] pain / Ghasem Community M54.5(ICD-10) Hospital Repository 01/06/2018 Unknown R73.09 - Other Ventura Escalante Active [facility] abnormal glucose / E Community R73.09(ICD-10) Hospital Repository 01/06/2018 Unknown M25.539 - Pain in Ventura Escalante Active [facility] unspecified wrist E Community / M25.539(ICD-10) Hospital Repository 12/04/2017 Unknown I71.4 - Abdominal CebuAvery haley Active [facility] aortic aneurysm, Community without rupture / Hospital I71.4(ICD-10) Repository 10/17/2017 Unknown M25.511 - Pain in Rodo Zamorano Active [facility] right shoulder / Community M25.511(ICD-10) Hospital Repository 09/08/2017 Unknown M25.512 - Pain in Rodo Zamorano Active [facility] left shoulder / Community M25.512(ICD-10) Hospital Repository PROCEDURES PROCEDURES No Procedure Records FoundRESULTS RESULTS CARDIOLOGY VISIT Observed: 07/14/2018 Status: F Source: [place] RE[place] 3:35 PM [facility]PITAL REPOSITORY [facility] [address] [place] [address] OFFICE VISIT Date of Service: 07/14/18 MR#: [id number] Acct: [id number] Name: ARAM KRUGER Rep #: [id number] : 1945 Provider: Shahram Perry MD Age/Sex: 72/M Location: [facility] Status: Signed HPI HPI Chief Complaint: Follow up Details: ARAM KRUGER, is a 72 M who presents to the office today for a cardiovascular outpatient follow-up. His history of coronary artery disease with angioplasty and stenting to his LAD in May 2005 and to his mid RCA and February 2010. He also has history of peripheral vascular disease with bilateral carotid endarterectomies and abdominal aortic aneurysm, hypertension, hyperlipidemia, sleep apnea. Pt. denies chest, arm, jaw, or neck discomfort. His exercise tolerance is stable via walking. Pt. denies symptoms of CHF, palpitations, lightheadedness, near syncope, or syncopal episodes. Pt. denies worsening edema or claudication issues. Pt. denies orthopnea, and PND. He states his breathing his usual for him. Pt. states some dizziness with quick head position changes. He states myalgia that he feels is appropriate to his exercise level. He states minimal decrease in fatigue that he attributes to age and activity level. Her physical exam demonstrates clear lung perez regular rate and rhythm and no pedal edema. Intake Vital Signs07/14/18 Height 5 ft 8 in 07/14/18 Weight: 222 lb 07/14/18 Body Mass Index (BMI) 33.7 Intake Visit Reasons: 7 M Shelter Director Required: No Accompanied by: none Is patient in pain?: No Allergies etodolac [Etodolac] Allergy (Verified 07/14/18 12:58) Unknown pregabalin [From Lyrica] Allergy (Verified 07/14/18 12:58) Unknown Medications atorvastatin 80 mg tablet 80 mg PO QHS #90 tab 10/16/17 [Rx Confirmed 07/14/18] nitroglycerin 0.4 mg sublingual tablet 0.4 mg SUBLINGUAL Q5M PRN #25 tab 12/09/17 [Rx Confirmed 07/14/18] esomeprazole magnesium 40 mg capsule,delayed release 40 mg PO DAILY #90 cap 12/15/17 [Rx Confirmed 07/14/18] Aspirin 81 mg PO PRN PRN 02/07/18 [History Confirmed 07/14/18] isosorbide mononitrate ER 30 mg tablet,extended release 24 hr 30 mg PO DAILY #90 tab 04/16/18 [Rx Confirmed 07/14/18] carvedilol 6.25 mg tablet 6.25 mg PO BID #180 tab 05/07/18 [Rx Confirmed 07/14/18] clopidogrel 75 mg tablet 75 mg PO DAILY #90 tab 05/25/18 [Rx Confirmed 07/14/18] [facility] Medical History Encounter for long-term current use of high risk medication (Chronic) Nicotine abuse (Chronic) Aortic stenosis (Chronic) Bilateral carotid artery stenosis (Chronic) Atherosclerotic heart disease of [place] coronary artery without angina pectoris (Chronic) AAA (abdominal aortic aneurysm) (Chronic) PVD (peripheral vascular disease) (Chronic) Hyperlipemia (Chronic) Hypertension (Chronic) CAD (coronary artery disease) (Chronic) Claudication (Acute) Dyspnea (Acute) Obesity (Acute) Shortness of breath (Acute) Surgical History Presence of coronary angioplasty implant and graft (Chronic) Family History Brother Hypertension Sister Hypertension Social History Smoking Status: Current every day smoker alcohol intake: never substance use type: does not use caffeine: No what type of physical activity do you participate in: walking frequency: daily ROS Const Const: Negative for fatigue, weakness, night sweats, excessive sweating, frequent falls, headache(s) or daytime sleepiness Eyes Eyes: Negative for loss of peripheral vision, transient loss of vision, blind spots, double vision or blurry vision ENT ENT: Negative for headache(s), dizziness, balance problems, Nosebleed/epistaxis, tongue swelling or lip swelling Cardio Chest Pain: No Palpitations: No Edema: Bilateral Muscle aches with walking: None Resp Respiratory: Negative for SOB at rest, SOB orthopnea\SOB lying down, Cough or paroxysmal nocturnal dyspnea GI GI: Negative nausea, vomiting, heartburn, black,tarry stools or bright, red blood in stools : Negative for hematuria Musc Musc: Negative for balance problems, muscle aches/ myalgia, muscle weakness or joint pain Skin Skin: Negative non-healing lesions, unusual bruising or rash Neuro Neuro: Negative for weakness, frequent falls, headache(s), double vision, dizziness, lightheadedness, orthostatic symptoms, blurry vision or lack of coordination [place] Hematologic/Lymphatic: Negative for easy bruising or easy bleeding Endo Endo: Negative for fatigue, excessive sweating, cold intolerance, heat intolerance, increased thirst/drinking or hair loss Psych Psych: Negative for anxiety or depression Allergy Allergy/Immunology: Negative for throat swelling, Negative for tongue swelling, Negative for hives, Negative for rash, Negative for lip swelling Cardiology Exam Const Appearance: cooperative, healthy appearing, well developed, well groomed and no acute distress Nutritional Appearance: well nourished and average body habitus Orientation: alert, awake and oriented x3 Head Head: normal to inspection, normocephalic and atraumatic Ears: hearing grossly normal bilaterally and external ears normal Nose: external nose normal, nasal mucous membranes and turbinates normal, nares normal, septum normal, no nasal discharge Face and Sinus: face symmetric Mouth: oral mucosae normal, tongue normal, oropharynx normal and moist mucous membranes Teeth and gingiva: dentition normal Throat: posterior oropharynx normal, tonsils normal and uvula midline Eyes General: appearance normal, both eyes and all related structures Eyelids: eyelids normal Conjunctivae: conjunctivae normal Pupils: PERRL, normal by confrontation and accommodation normal EOM: EOM intact bilaterally Neck Neck: normal visual inspection, trachea midline and no JVD JVD: +5 Carotids: normal carotid upstroke and bounding pulses Chest Chest inspection: normal inspection of the chest, symmetric chest movement and normal respiratory effort Auscultation: Bilateral: Clear to Auscultation Cardio Palpation: normal PMI Rate: regular rate Rhythm: regular rhythm Heart sounds: S1 normal, S2 normal and normal, physiologic split S2; negative rub, gallop or murmur GI GI: normal to inspection, soft, no hepatosplenomegaly and bowel sounds present Neuro General: alert, awake, oriented x3, no focal sensory deficit, gait normal and moves all extremities Skin Skin: no rashes or lesions noted Extremities Pulses: Normal: Right Femoral Pulse, Left Femoral Pulse, Right Dorsalis Pedis Pulse, Left Dorsalis Pedis Pulse, Right Posterior Tibial Pulse, Left Posterior Tibial Pulse, Right Radial Pulse, Left Radial Pulse Lower Extremity Edema: None: Bilateral Musculoskel Musculoskeletal: No joint tenderness Psych Psychological: normal affect Assessment AND Plan 1. CAD (coronary artery disease) I25.10 Plan She does have a history of coronary artery disease status post previous stenting of the left anterior descending artery and right coronary artery with his last catheterization demonstrating patency of the above stents. My recommendation is for us to continue medical therapy with aggressive risk factor modification. 2. Essential hypertension I10 Plan He does have a history of hypertension with well-controlled blood pressure on the current medical regimen. I would not suggest that we make any other changes regarding the above. 3. Pure hypercholesterolemia E78.5 Plan He does have a history of hyperlipidemia. His most recent lipid profile demonstrating a total cholesterol of 132, LDL 58 and HDL of 42. The above numbers appear to be 4. Abdominal aortic aneurysm (AAA) without rupture I71.4 Plan He said he was previously told that he had an abdominal aortic aneurysm however a recent ultrasound from November did not demonstrate any significant dilatation of his abdominal aorta. He will however continue with risk factor modification. Plan Detail Follow Up 6 Months (r) Coding Level of Care Code Off vis,est,level 4 Diagnoses CAD (coronary artery disease) I25.10 Essential hypertension I10 Pure hypercholesterolemia E78.5 Abdominal aortic aneurysm (AAA) without rupture I71.4 Coding Level of Care Code Off vis,est,level 4 Diagnoses CAD (coronary artery disease) I25.10 Essential hypertension I10 Pure hypercholesterolemia E78.5 Abdominal aortic aneurysm (AAA) without rupture I71.4 07/14/18 1530 <Electronically signed by Shahram Perry MD> Date Shahram Perry MD Cosigner Signature: Date (if applicable) CC: Rodo Zamorano MD LIVER PROFILE Collected: 07/08/2018 Status: F Source: [place] [place] [facility] 7:28 AM [facility] REPOSITORY TYPE CODE TESTS RESULT OUT OF RANGE REFERENCE UNITS LAB L501.1500 6.4-8.2 g/dL Normal T PROT 7.1 LAB L501.1800 3.2-5.0 g/dL Normal ALB 3.8 LAB L501.1950 2.2-4.2 g/dL Normal GLOB 3.3 LAB L501.4100 15-37 U/L Low AST 13 LAB L501.4305 45-117 U/L Low ALK P 35 LAB L501.4405 16-61 U/L Normal ALT 26 LAB L501.4600 0.20-1.00 mg/dL Normal T BILI 0.70 LAB L501.4700 0.00-0.30 mg/dL Normal D BILI 0.20 Performed By: #### L500.3400, L500.4100 #### [facility] [address] [place], [address] LIPID PROFILE Collected: 07/08/2018 Status: F Source: [place] 7:28 AM [facility] REPOSITORY TYPE CODE TESTS RESULT OUT OF RANGE REFERENCE UNITS LAB L501.4900 200 mg/dL Normal CHOL 132 Result Comment: <200 mg/dL Desirable 200-240 mg/dL Borderline >240 mg/dL High Risk LAB L501.5000 mg/dL Normal TRIG 161 Result Comment: The drugs N-Acetylcysteine and Metamizole may falsely depress this assay. Serum Triglycerides Reference Interval Normal <150 mg/dL Borderline high 150 - 199 mg/dL High 200 - 499 mg/dL Very High > or = 500 mg/dL LAB L501.6400 mg/dL Normal HDL 42 Result Comment: The drugs N-Acetylcysteine and Metamizole may falsely depress this assay. Reference Range HDL <40 mg/dL Low HDL Cholesterol HDL >or= 60 mg/dL High HDL Cholesterol LAB L501.6500 0-130 mg/dL Normal LDL 58 LAB L501.6600 5-40 mg/dL Normal VLDL 32 Performed By: #### L500.3400, L500.4100 #### [facility] [address] [place], [address] EMERGENCY DEPARTMENT Observed: 06/02/2018 Status: F Source: [place] SUMMARY 3:39 PM [facility] REPOSITORY [facility] Medical Records Department [address] [place] [address] Emergency Department Summary 06/02/18 1533 MR#: [id number] Acct: [id number] Name: ARAM KRUGER Rep #: [id number] : 1945 72 From: Greyson Reddy MD PCP: Rdoo Zamorano MD Status: REG ER - ER Visit Summary Date of Service: 06/02/18 Chief Complaint: Atraumatic right forearm pain for the past several weeks. His doctor was concerned for carpal tunnel syndrome. History of Present Illness: The patient is a 72 M who is right- handed presents with atraumatic right forearm pain for the past several weeks. He reports supination pronation makes the pain worse. He denies paresthesia, anesthesia or motor weakness. He has no history of autoimmune disorder. He denies fever, chills night sweats or weight loss. He denies respiratory or cardiac symptoms. He is on no anticoagulant. He denies prior history of problems. He states occasionally does wake up in night but has pain distal to rest. He is a smoker. He has multiple medical problems. Please read written note for complete detail. Physical Examination: Vital signs noted and normal. Examination of the right upper extremity reveals dry skin. There is no pain palpation over the proximal humerus, medial, lateral epicondyle or olecranon process. There is mild discomfort over the radial head. There is increased discomfort with supination pronation over the radial head. Supination pronation causes pain involving the entire right forearm. There is no pain the patient over the distal radius or ulna. There is no effusion. Flexion extension and abduction and adduction of the wrist causes no discomfort. There is no pain palpation of the carpal bones, metacarpal bones, or phalanges. Tinel's and Phalen test are negative. Radial pulses 2+. Test Results: Two-view x-ray of the right forearm was interpreted by me as negative. On the lateral there is no evidence of radial head fracture nor is there an anterior posterior fat pad noted. X-ray of the wrist was obtained as well per nurse protocol and reveals no abnormality i.e. fracture, subluxation avascular necrosis of the scaphoid etc. Emergency Department Course and Treatment: X-rays were ordered per nurse protocol. X-ray of the forearm and wrist was placed. Treatment Plan: Patient was prescribed opiate analgesia for his discomfort and referred to Dr. Trung Burgess. Disposition: Discharge with orthopedic follow-up Impression: Atraumatic right forearm pain unknown etiology. This note was generated with [email or web address] software. It may contain incorrect words, spelling, and punctuation that were not noted in review of the chart prior to signing ED Disposition - Plan for ED Patient: Disposition: Home or Assisted Living Chief Complaint: Upper Extremity Injury Instructions: ED Acute Pain UKO Prescriptions: Hydrocodone Bitart/Apap 5-325 [[place] 5MG-325MG] 1 tab PO Q6H PRN PRN 3 Days #10 tab PRN Reason: Pain Referrals: Rodo Zamorano MD [Primary Care Provider] - Trung Burgess MD [STAFF PHYSICIAN] - 3-5 Days What to do if you have Problems For any increased pain, shortness of breath, bleeding, nausea or vomiting, chest pain, or any unexpected problems, contact your Primary Care Provider. Call [facility] ([phone]) or report to the closest Emergency Room. Call 911 if necessary. 06/02/18 1539 <Electronically signed by Greyson Reddy MD> Date Greyson Redyd MD Cosigner Signature (If Indicated): Date CC: Rodo Zamorano MD FOREARM 2 VIEWS Observed: 06/02/2018 Status: F Source: [place] 1:30 PM [facility] REPOSITORY [facility] Imaging Services [address] [place] [id number] Forearm 2 Views MR#: [id number] Acct: [id number] Name: ARAM KRUGER Rep #: [id number] : 1945 M 72 From: Dennis Felipe MD PCP: Rodo Zamorano MD Status: PRE ER Study: Forearm 2 Views Date of Exam: 06/02/18 Exam# [id number] Ordering Dr: Provider,Ed P. STUDY: X-RAY - RIGHT RADIUS AND ULNA REASON FOR EXAM: Male, 72 years old. Pain. TECHNIQUE: 2 view(s) of the forearm. COMPARISON: None. FINDINGS: There is no demonstrated soft tissue swelling. Normal visualized radius. Normal visualized ulna. RAD/Forearm 2 Views IMPRESSION: Normal x-ray examination of the radius and ulna. Electronically Signed: Dennis Felipe MD at 14:07 EST Tel [phone], Service support , CC: ED PHYSICIAN PROVIDER; Rodo Zamorano MD Supervisor Hanging And Trimming: Signed WRIST MIN 3 VIEWS Observed: 06/02/2018 Status: F Source: [place] 1:30 PM [facility] REPOSITORY [facility] Imaging Services [address] [place] [address] Wrist min 3 Views MR#: [id number] Acct: [id number] Name: ARAM KRUGER Rep #: [id number] : 1945 M 72 From: Dennis Felipe MD PCP: Rodo Zamorano MD Status: PRE ER Study: Wrist min 3 Views Date of Exam: 06/02/18 Exam# [id number] Ordering Dr: Provider,Ed P. STUDY: X-RAY - RIGHT WRIST REASON FOR EXAM: Male, 72 years old. Pain. TECHNIQUE: 3 view(s) of the wrist were obtained. COMPARISON: None. FINDINGS: Normal visualized distal radius and ulna. Normal radiocarpal articulation. Normal distal radioulnar articulation. Normal carpal bones. Normal carpal articulations. Normal carpometacarpal articulation of the thumb. Normal second through fifth carpometacarpal articulations. Normal visualized metacarpal bones. Soft tissue swelling. RAD/Wrist min 3 Views IMPRESSION: Soft tissue swelling. Electronically Signed: Dennis Felipe MD at 14:08 EST Tel [phone], Service support , CC: ED PHYSICIAN PROVIDER; Rodo Zamorano MD Supervisor Hanging And Trimming: Signed BASIC METABOLIC Collected: 04/13/2018 Status: F Source: [place] PROFILE (BMP) 8:20 AM [facility] REPOSITORY TYPE CODE TESTS RESULT OUT OF RANGE REFERENCE UNITS LAB L501.0100 74-106 mg/dL High GLU 115 Result Comment: Fasting Glucose result from 100 to 125 mg/dL suggests IMPAIRED HOMEOSTASIS per A.D.A. criteria. Please note revised GLUCOSE reference range effective 2017. LAB L501.1000 7-18 mg/dL Normal BUN 15 LAB L501.1100 0.70-1.30 mg/dL Normal CREAT,SERUM 0.77 Result Comment: The validity of the calculated GFR AND GFRAA in patients over 70 years has not been determined. Clinical correlation is essential. LAB L501.1110 >60 mL/min Normal EST GFR 105 Result Comment: Non- GFR Calc LAB L501.1115 >60 mL/min Normal EST GFR - AA 127 Result Comment: GFR Calc LAB L501.1300 10-20 RATIO Normal BUN/CRE 19.4 LAB L501.2200 8.5-10.1 mg/dL CA Normal 8.8 LAB L501.5300 136-145 mmol/L NA Normal 144 LAB L501.5600 3.5-5.1 mmol/L K Normal 3.8 LAB L501.5900 98-107 mmol/L CL Normal 107 LAB L501.6100 21.0-32.0 mmol/L Normal CO2 25.0 LAB L501.6200 5-15 Normal GAP 12 Performed By: #### L500.2500, L500.4100 #### [facility] [address] [place], [address] LIPID PROFILE Collected: 04/13/2018 Status: F Source: [place] 8:20 AM [facility] REPOSITORY TYPE CODE TESTS RESULT OUT OF RANGE REFERENCE UNITS LAB L501.4900 200 mg/dL Normal CHOL 134 Result Comment: <200 mg/dL Desirable 200-240 mg/dL Borderline >240 mg/dL High Risk LAB L501.5000 mg/dL Normal TRIG 169 Result Comment: The drugs N-Acetylcysteine and Metamizole may falsely depress this assay. Serum Triglycerides Reference Interval Normal <150 mg/dL Borderline high 150 - 199 mg/dL High 200 - 499 mg/dL Very High > or = 500 mg/dL LAB L501.6400 mg/dL Low HDL 39 Result Comment: The drugs N-Acetylcysteine and Metamizole may falsely depress this assay. Reference Range HDL <40 mg/dL Low HDL Cholesterol HDL >or= 60 mg/dL High HDL Cholesterol LAB L501.6500 0-130 mg/dL Normal LDL 61 LAB L501.6600 5-40 mg/dL Normal VLDL 34 Performed By: #### L500.2500, L500.4100 #### [facility] [address] [place], [address] DISCHARGE SUMMARY Observed: 02/18/2018 Status: F Source: [place] 1:10 PM [facility] REPOSITORY [facility] Medical Records Department [address] [place] [id number] Discharge Summary 02/18/18 1303 MR#: [id number] Acct: [id number] Name: ARAM KRUGER Rep #: [id number] : 1945 72 From: Shahzad Carbone MD PCP: Rodo Zamorano MD Status: DIS IN Y Location: [facility] [id number] Discharge Date and Diagnosis Date of Admission: 02/17/18 Date of Discharge: 02/18/18 - Primary Discharge Diagnosis #1 intractable low back pain/difficulty ambulating. #2 disc protrusion/herniation at L4-L5. - Secondary Discharge Diagnosis Chronic Problems (Last Updated 02/17/18 @ 12:40 by Shahzad Carbone MD) Encounter for long-term current use of high risk medication (Chronic) Nicotine abuse (Chronic) Aortic stenosis (Chronic) Presence of coronary angioplasty implant and graft (Chronic) PTCA of LAD cypher stent 2004; [facility] with PTCA Promus stent to mid RCA 03/07/10; Bilateral carotid artery stenosis (Chronic) Atherosclerotic heart disease of [place] coronary artery without angina pectoris (Chronic) AAA (abdominal aortic aneurysm) (Chronic) PVD (peripheral vascular disease) (Chronic) Hyperlipemia (Chronic) Hypertension (Chronic) CAD (coronary artery disease) (Chronic) Hospital Course and Treatment Imaging Results: Clinical Impression(s) from Imaging Studies Lumbar Spine X-Ray 02/17/18 09:08 IMPRESSION: Degenerative changes of the spine, as detailed above. Electronically Signed: Vicente Obrien MD at 9:50 EDT Tel , Service support , Lumbar Spine CT 02/17/18 13:11 IMPRESSION: Disc protrusion/herniation at L4-L5 not apparently contributing to stenosis. Otherwise mild lumbar spondylosis without further stenosis. No evidence of acute fracture or traumatic subluxation. Mild aneurysmal ectasia of the infrarenal abdominal aorta. Prominent atherosclerosis. Electronically Signed: Virgil Pruett, at 16:23 EDT Tel , Service support , Operations: None Procedures: None Summary of Care Provided: Patient seen and examined on the day of discharge and appeared to be stable to be discharged home. He reported significant improvement of symptoms, no more back pain and he has been ambulated without any restrictions. His vital signs are stable. - Physical Exam General: Alert, Oriented x3, Cooperative, No apparent distress. HEENT: Atraumatic, PERRLA, EOMI. Neck: Supple, No JVD, Negative Carotid Bruits, Trachea Midline, Thyroid Normal. Lungs: Clear to auscultation, Normal air movement, No rhonchi, No wheeze, No rales. Cardiovascular: Regular rate, Regular Rhythm, Normal S1, Normal S2, PMI Normal. Abdomen: Bowel Sounds Present, Soft, Non Tender, Non-Distended, No Hepato-splenomegaly. Extremities: No clubbing, No cyanosis, No edema Skin: No rashes, No breakdown Neurological: Neuro grossly intact Vital Signs stable. Hospital course: The patient is a 72 year old M admitted after he returned to ED after few days for of intractable low back pain. 3 days before his admission, patient came to the emergency room because of low back pain that started when he was making his bed and bending forward. On that date, he was discharged home on lidocaine patch and Tylenol. Patient presented back to ED because of worsening low back pain and difficulty ambulating. He did not have symptoms suggestive of radiculopathy. Number spine x-ray revealed multilevel degenerative disc disease and narrowing. He was treated with IV Dilaudid, OxyIR as needed and Flexeril as well. CT scan lumbar spine revealed disc protrusion at L4-L5 without obvious stenosis, no acute fractures or dislocations, revealed mild disc narrowing at L1-L2 and L2- 3. With above-mentioned treatment, patient symptoms improved and he was able to ambulate with a without any more back pain. His vital signs were stable. His routine blood work was unremarkable. Patient discharged home in a stable medical condition, discharged on OxyIR as needed for pain, Flexeril as needed for muscle spasm, recommended follow-up with PCP in 2 weeks. Discharge Activity: Return to Normal Activity, May not drive while taking narcotic pain medications. Weight Bearing Status: Weight bearing as tolerated Call your doctor if you observe: Fever of 101 or Higher, Numbness or Tingling, Shortness of breath, Dizziness, Fainting spells, Chest pain, Increased palpitations (irregular heartbeat), Uncontrolled pain Home Medications: Medications to take at Discharge atorvastatin 80 mg tablet 80 mg PO QHS #90 tab 10/16/17 nitroglycerin 0.4 mg sublingual tablet 0.4 mg SUBLINGUAL Q5M PRN #25 tab 12/09/17 amlodipine 10 mg-benazepril 20 mg capsule 1 cap PO DAILY #90 cap 12/15/17 clopidogrel 75 mg tablet 75 mg PO DAILY #90 tab 12/15/17 esomeprazole magnesium 40 mg capsule,delayed release 40 mg PO DAILY #90 cap 12/15/17 isosorbide mononitrate ER 30 mg tablet,extended release 24 hr 30 mg PO DAILY #90 tab 12/15/17 Acetaminophen [Tylenol] 650 mg PO TID #30 tab 02/07/18 Aspirin 81 mg PO PRN PRN 02/07/18 Lidocaine [Lidoderm Patch] 1 patch TOPICAL BID.TCU #20 patch 02/07/18 Coreg 6.25 mg PO DAILY 02/17/18 Cyclobenzaprine [Flexeril] 5 mg PO TID PRN PRN #14 tab 02/18/18 Oxycodone [Oxyir] 5 mg PO Q8H PRN PRN 4 Days #12 tab 02/18/18 Following Prescrptions Were Given to Patient: Oxycodone [Oxyir] 5 mg PO Q8H PRN PRN 4 Days #12 tab PRN Reason: Severe Pain (6-05/06) Cyclobenzaprine [Flexeril] 5 mg PO TID PRN PRN #14 tab PRN Reason: Back/muscle pain, spasm Primary Care Physician: Rodo Zamorano MD [Primary Care Provider] - Please follow up with your Primary Care Physician in: 2-3 weeks. Patient Instructions: Relieving Back Pain, Back Safety: Bending Disposition: Home Minutes spent on discharge:: 24 Patient Condition:: Stable Medical Necessity - Tobacco Use Smoking Status: Current every day smoker Tobacco Use: Cigarettes Meaningful Use Info Meaningful Use Diagnoses (Choose all that apply): None applicable Code Visit Inpatient E AND M: 85150 Disch Hosp 02/18/18 1310 <Electronically signed by Shahzad Carbone MD> Date Shahzad Carbone MD Cosigner Signature (if applicable): Date CC: Shahzad Carbone; Rodo Zamorano MD Signed DISCHARGE INSTRUCTION Observed: 02/18/2018 Status: F Source: [place] 9:29 AM [facility] [place] REPOSITORY [facility] Medical Records Department [address] [place] [id number] Instructions for Home/Discharge Instructions 02/18/18 0927 MR#: [id number] Acct: [id number] Name: ARAM KRUGER Rep #: [id number] : 1945 72 From: Shahzad Carbone MD PCP: Rodo Zamorano MD Status: ADM IN You will use the following diet at home:: Cardiac Your food should be the consistency of: Regular Discharge Activity: Return to Normal Activity, May not drive while taking narcotic pain medications. Weight Bearing Status: Weight bearing as tolerated Call your doctor if you observe: Fever of 101 or Higher, Numbness or Tingling, Shortness of breath, Dizziness, Fainting spells, Chest pain, Increased palpitations (irregular heartbeat), Uncontrolled pain Instructions: Back Safety: Bending, Relieving Back Pain Allergies/Adverse Reactions: Allergies etodolac [Etodolac] Allergy (Verified 02/17/18 08:17) Unknown pregabalin [From Lyrica] Allergy (Verified 02/17/18 08:17) Unknown Medications to take at Discharge atorvastatin 80 mg tablet 80 mg PO QHS #90 tab 10/16/17 nitroglycerin 0.4 mg sublingual tablet 0.4 mg SUBLINGUAL Q5M PRN #25 tab 12/09/17 amlodipine 10 mg-benazepril 20 mg capsule 1 cap PO DAILY #90 cap 12/15/17 clopidogrel 75 mg tablet 75 mg PO DAILY #90 tab 12/15/17 esomeprazole magnesium 40 mg capsule,delayed release 40 mg PO DAILY #90 cap 12/15/17 isosorbide mononitrate ER 30 mg tablet,extended release 24 hr 30 mg PO DAILY #90 tab 12/15/17 Acetaminophen [Tylenol] 650 mg PO TID #30 tab 02/07/18 Aspirin 81 mg PO PRN PRN 02/07/18 Lidocaine [Lidoderm Patch] 1 patch TOPICAL BID.TCU #20 patch 02/07/18 Coreg 6.25 mg PO DAILY 02/17/18 Cyclobenzaprine [Flexeril] 5 mg PO TID PRN PRN #14 tab 02/18/18 Oxycodone [Oxyir] 5 mg PO Q8H PRN PRN 4 Days #12 tab 02/18/18 The following prescriptions were given: Oxycodone [Oxyir] 5 mg PO Q8H PRN PRN 4 Days #12 tab PRN Reason: Severe Pain (6-10/10) Cyclobenzaprine [Flexeril] 5 mg PO TID PRN PRN #14 tab PRN Reason: Back/muscle pain, spasm Primary Care Physician: Rodo Zamorano MD [Primary Care Provider] - Please follow up with your Primary Care Physician in: 2-3 weeks. Test Results: Test results from this visit will be discussed in further detail at your follow-up appointment, if applicable. 02/18/18 0929 <Electronically signed by Shahzad Carbone MD> Date Shahzad Carbone MD CC: Rodo Zamorano MD EMERGENCY DEPARTMENT Observed: 02/17/2018 Status: F Source: [place] SUMMARY 3:40 PM [facility] [place] REPOSITORY [facility] Medical Records Department [address] [place] [address] Emergency Department Summary 02/17/18 1150 MR#: [id number] Acct: [id number] Name: ARAM KRUGER Rep #: [id number] : 1945 72 From: Jaylon Roberts MD PCP: Rodo Zamorano MD Status: ADM IN - ER Visit Summary Date of Service: 02/17/18 Chief Complaint: Pain History of Present Illness: The patient is a 72 M with low back pain since Friday after he was making his bed. Patient had been bending. He was seen in the ED and treated with morphine. He was treated at home with lidocaine patches and Tylenol. His pain has not improved. Today his pain was worse. The pain is in his lower back. It does not radiate. He denies any weakness or numbness. The pain has been so severe that it causes nausea. He has a history of remote lumbar surgery where he had his nerves cleaned. This was over 5 years ago. No other back surgeries. No change in bowel or bladder. No fevers or rash. Physical Examination: Afebrile and vital signs unremarkable except for hypertension. The patient appears very uncomfortable with every movement. Heart regular. Lungs clear. Abdomen soft and nontender. No masses. Back shows diffuse lumbar tenderness to palpation. There is a midline lumbar scar which appears old. Straight leg raise is negative. He is neurovascularly intact distally in both lower extremities. Skin appears normal. Test Results: X-rays obtained at this visit. They were unremarkable for anything acute. He does have degenerative changes. Emergency Department Course and Treatment: Patient received morphine subcutaneous and Zofran. I also treated him with Norflex. He had minimal improvement in his pain. He received additional [place]. His pain went from a 10 to an 8. He continued to have pain, worse with movement. No new or worsening symptoms. I suspect this is all myofascial pain. He has no other red flag symptoms or signs. He will likely need IV pain medication and possibly physical therapy. I suspect that he will not do well on oral pain medications at home. I called the hospitalist to admit. Treatment Plan: As above Disposition: Admission Impression: 1. Intractable lumbar back pain This note was generated with [employer] dictation software. It may contain incorrect words, spelling, and punctuation that were not noted in review of the chart prior to signing ED Disposition - Plan for ED Patient: Chief Complaint: Back Referrals: Rodo Zamorano MD [Primary Care Provider] - What to do if you have Problems For any increased pain, shortness of breath, bleeding, nausea or vomiting, chest pain, or any unexpected problems, contact your Primary Care Provider. Call [facility] ([phone]) or report to the closest Emergency Room. Call 911 if necessary. 02/17/18 1540 <Electronically signed by Jaylon Roberts MD> Date Jaylon Roberts MD Cosigner Signature (If Indicated): Date CC: Rodo Zamorano MD HISTORY AND PHYSICAL Observed: 02/17/2018 Status: F Source: [place] EXAM 2:05 PM [facility] [place] REPOSITORY [facility] Medical Records Department [address] [place] [address] History and Physical 02/17/18 1229 MR#: [id number] Acct: [id number] Name: ARAM KRUGER Rep #: [id number] : 1945 72 From: Shahzad Carbone MD PCP: Rodo Zamorano MD Status: ADM IN Y Location: [facility] [place] [id number] Problem List (1) Presence of coronary angioplasty implant and graft Status: Chronic Comment: PTCA of LAD cypher stent 2004; [facility] with PTCA Promus stent to mid RCA 03/07/10; (2) Bilateral carotid artery stenosis Status: Chronic (3) Atherosclerotic heart disease of [place] coronary artery without angina pectoris Status: Chronic Qualifiers: (4) AAA (abdominal aortic aneurysm) Status: Chronic Qualifiers: (5) PVD (peripheral vascular disease) Status: Chronic (6) Hyperlipemia Status: Chronic Qualifiers: (7) Hypertension Status: Chronic Qualifiers: (8) CAD (coronary artery disease) Status: Chronic History of Present Illness Date of Admission: 02/17/18 Chief Complaint: Low back pain. The patient is a 72 year old M with past medical history as mentioned above presented to the emergency room because of worsening low back pain. 5 days ago, he was making his bed, bending forward and he started having sudden onset low back pain. On that day, he came to the emergency department and he was discharged home on lidocaine patch and Tylenol. Since then, he has been complaining of persistent low back pain, sharp pain, 10 out of 10 in severity, not radiating, aggravated by movement or bending forward, relieved by rest and without associated symptoms. He denied associated focal leg weakness, numbness or tingling. He denied bowel or bladder incontinence. He denies significant trauma or mechanical fall. He has history of back surgery 5 years ago and he mentioned that it was minor surgery. No documents available. In the emergency department, his blood pressure was slightly elevated because of pain, otherwise his vitals are stable. His routine blood work was unremarkable. X-ray of the lumbar spine revealed multilevel degenerative disc disease and space now, no acute fractures or dislocations. He received IV morphine, IV hydromorphone and [place]ndon in the ER without improvement. He is being admitted for intractable low back pain and debility for treatment and evaluation. Past Medical History Past Medical History (Chronic Problems): Chronic Problems (Last Updated 02/17/18 @ 12:40 by Shahzad Carbone MD) Encounter for long-term current use of high risk medication (Chronic) Nicotine abuse (Chronic) Aortic stenosis (Chronic) Presence of coronary angioplasty implant and graft (Chronic) PTCA of LAD cypher stent 2004; [facility] with PTCA Promus stent to mid RCA 03/07/10; Bilateral carotid artery stenosis (Chronic) Atherosclerotic heart disease of [place] coronary artery without angina pectoris (Chronic) AAA (abdominal aortic aneurysm) (Chronic) PVD (peripheral vascular disease) (Chronic) Hyperlipemia (Chronic) Hypertension (Chronic) CAD (coronary artery disease) (Chronic) Medical History: Medical History (Last Updated 07/24/18 @ 12:40 by Shahzad Carbone MD) Encounter for long-term current use of high risk medication (Chronic) Z79.899 Nicotine abuse (Chronic) Z72.0 Aortic stenosis (Chronic) I35.0 Bilateral carotid artery stenosis (Chronic) I65.23 Atherosclerotic heart disease of [place] coronary artery without angina pectoris (Chronic) I25.10 AAA (abdominal aortic aneurysm) (Chronic) I71.4 PVD (peripheral vascular disease) (Chronic) I73.9 Hyperlipemia (Chronic) E78.5 Hypertension (Chronic) I10 CAD (coronary artery disease) (Chronic) I25.10 Claudication I73.9 Dyspnea R06.00 Obesity E66.9 Shortness of breath R06.02 Allergies etodolac [Etodolac] Allergy (Verified 02/17/18 08:17) Unknown pregabalin [From Lyrica] Allergy (Verified 02/17/18 08:17) Unknown Home Medications: Ambulatory Orders Medication Instructions Recorded atorvastatin 80 mg tablet 80 mg PO QHS #90 tab 10/16/17 nitroglycerin 0.4 mg sublingual 0.4 mg SUBLINGUAL Q5M PRN #25 tab 12/09/17 Surgical History: Surgical History (Last Updated 02/17/18 @ 12:40 by Shahzad Carbone MD) Presence of coronary angioplasty implant and graft (Chronic) Z95.5 PTCA of LAD cypher stent 2004; [facility] with PTCA Promus stent to mid RCA 03/07/10; Surgical History: appendectomy, - - Catheterization and stenting, back surgery, shoulder surgery, bilateral carotid endarterectomy, bowel resection Psychiatric History: No pertinent psych hx Lives: Spouse/ Significant Other Smoking Status: Current every day smoker Alcohol: Rare Drugs: None - *Family History Sibling Family History: Family History (Last Reviewed 12/09/17 @ 09:36 by Norma Solorio) Brother Hypertension Sister Hypertension History Items: Hypertension Maternal Family History: Family History (Last Reviewed 12/09/17 @ 09:36 by Norma Solorio) Brother Hypertension Sister Hypertension History Items: No pertinent history Paternal Family History: Family History (Last Reviewed 12/09/17 @ 09:36 by Norma Solorio) Brother Hypertension Sister Hypertension History Items: No pertinent history Review of Systems Constitutional: Denies: Anorexia, Chills, Fever, Weakness Eyes: Denies: Blurred vision, Double vision, Drainage, Redness HEENT: Denies: Difficulty Hearing, Ear Pain, Eye Pain, Nasal Congestion, Sore Throat Cardiovascular: Denies: Chest Pain, Chest Pressure, Heaviness, Light Headedness, Palpitations, Syncope Respiratory: Denies: Cough, Pleuritic Pain, Shortness of Breath, Sputum production, Wheezing Gastrointestinal: Denies: Abdominal Pain, Constipation, Diarrhea, Nausea, Vomiting Genitourinary: Denies: Dysuria, Frequency, Hematuria Musculoskeletal: Reports: Back Pain. Denies: Arm Pain, Foot Pain Skin: Denies: Dryness, Rash Neurological: Denies: Balance problems, Double vision, Change in Speech, Slurred speech, Confusion, Headaches, Incoordination, Numbness, Tingling Psychiatric: Denies: Anxiety, Depression Endocrine: Denies: Change in Body Habitus, Polydipsia VTE Information - Inpt Only VTE Present on Admission: No VTE Mechan Device Prophylaxis: None VTE Pharm Prophylaxis ordered?: Yes - Physical Exam General: Alert, Oriented x3, Cooperative, No apparent distress HEENT: Atraumatic, PERRLA, EOMI, Normocephalic Oral: Moist Mucosa, No Gingival or Mucosal Lesions/ Ulcerations Neck: Supple, No JVD, Negative Carotid Bruits, Trachea Midline, Thyroid Normal Size and Texture Lungs: Clear to auscultation, No rhonchi, No wheeze, No rales, Diminished Cardiovascular: Regular rate, Regular Rhythm, Normal S1, Normal S2, PMI Normal Abdomen: Bowel Sounds Present, Soft, Non Tender, Non-Distended, No Hepato-splenomegaly Extremities: No clubbing, No cyanosis, Edema - Trace edema. Skin: No rashes, No breakdown Lymphatic: No Cervical, Supraclavicular, or Inguinal Adenopathy Neurological: Cranial nerves II-XII grossly intact, Motor Exam 5/5 strength throughout Psych/Mental Status: Normal Affect, Appropriate, Alert and oriented to time, place, person, mood and affect Vital Signs Temp Pulse Resp BP Pulse Ox 97 F L 61 24 H 164/65 H 100 02/17/18 08:18 02/17/18 08:18 02/17/18 08:18 02/17/18 08:18 02/17/18 08:18 Weight: 220 lb Body Mass Index (BMI) 33.4 Clinical Impression(s) from Imaging Studies Lumbar Spine X-Ray 02/17/18 09:08 IMPRESSION: Degenerative changes of the spine, as detailed above. Electronically Signed: Vicente Obrien MD at 9:50 EDT Tel , Service support , Laboratory Tests Assessment/Plan This is a 72 years old male patient presented to the emergency department because of worsening low back pain, came to the ED a few days ago was discharged on lidocaine patch and Tylenol and is doing better because of worsening low back pain and is being admitted for intractable low back pain for treatment and evaluation. #1 intractable low back pain/debility/difficulty ambulating: Pain started when he was making his bed and bending forward 5 days ago, has been getting worse. History of back surgery in the past. Received IV morphine and hydromorphone in the ER without improvement. He has been having difficulties ambulating and getting around. No evidence of radiculopathy. Plan: Admit to [facility] floor, IV Dilaudid as needed for pain, OxyIR as needed, Flexeril as needed, CT scan lumbar spine, ambulate as tolerated, PT OT evaluation and treatment. #2 CAD status post stents: Stable, no acute issues. Continue aspirin, statins, Coreg and Plavix as well as lisinopril and isosorbide mononitrate. #3 hypertension: Blood pressure slightly elevated, likely because of pain. Plan to continue Norvasc, Coreg and lisinopril. #4 hyperlipidemia: Continue statins. #5 peripheral vascular disease: Continue aspirin, Plavix and statins. #6 history of AAA: Stable, no acute issues. #7 DVT prophylaxis: Subcu Lovenox. This note was generated with [employer] dictation software. It may contain incorrect words, spelling, and punctuation that were not noted in checking the note before signing. Code Visit Inpatient E AND M: 05623 Init Hosp L3 02/17/18 8094 <Electronically signed by Shahzad Carbone MD> Date Shahzad Carbone MD Cosigner Signature: Date (if applicable) CC: Shahzad Carbone; Rodo Zamorano MD Signed SPINE LUMBAR WITHOUT Observed: 02/17/2018 Status: F Source: [place] CONTRAST 1:12 PM [facility] [place] REPOSITORY [facility] Imaging Services [address] [place] [address] Spine Lumbar without Contrast MR#: [id number] Acct: [id number] Name: ARAM KRUGER Rep #: [id number] : 1945 72 From: Virgil Pruett MD PCP: Rodo Zamorano MD Status: ADM IN Study: Spine Lumbar without Contrast Date of Exam: 02/17/18 Exam# [id number] Ordering Dr: Shahzad Carbone MD STUDY: CT LUMBAR SPINE WITHOUT CONTRAST REASON FOR EXAM: Male, 72 years old. Lower back pain RADIATION DOSAGE (If Supplied By Facility): CTDIvol = ( 30.00 ) mGy, DLP = ( 1237.11 ) mGycm TECHNIQUE: The patient was scanned in a multi detector CT scanner. High resolution transaxial imaging was performed. Sagittal and coronal images were reconstructed. Individualized dose optimization techniques were used for this CT. COMPARISON: MRI lumbar spine 09/23/2013. Lumbar spine x-ray 09/20/2013. FINDINGS: Limited evaluation of the retroperitoneum reveals no acute abnormalities. There is prominent aortoiliac atherosclerosis. There is mild aneurysmal ectasia of the infrarenal abdominal aorta, bilobed morphology, measuring up to 3.1 cm in diameter. There is mild ectasia of the right common iliac artery up to 1.4 cm. The left measures 1.1 cm. Mild SI joint degenerative changes, symmetric. Generalized osteopenia. Psoas and paraspinous muscles appear normal. There is no evidence of spinal canal stenosis. Mild scoliosis. Normal lordosis. Normal vertebral body height and alignment. Mild disc narrowing at L1-L2, L2-L3 with minimal annular disc bulging and no stenosis. L3-L4 no disc narrowing but with minimal annular disc bulging, no stenosis. Next line L4-L5 mild disc narrowing, annular disc bulge, with a small posterior midline central disc herniation/protrusion. The disc herniation measures approximately 8 mm anterior-posterior, 7.5 mm transverse, and 9 mm craniocaudal. Minimally impinging the anterior margin of the thecal sac. No significant lateral recess or foraminal stenosis. Next line L5-S1 no disc narrowing, minimal posterior disc bulging, minimal foraminal narrowing. CT/Spine Lumbar without Contrast IMPRESSION: Disc protrusion/herniation at L4-L5 not apparently contributing to stenosis. Otherwise mild lumbar spondylosis without further stenosis. No evidence of acute fracture or traumatic subluxation. Mild aneurysmal ectasia of the infrarenal abdominal aorta. Prominent atherosclerosis. Electronically Signed: Virgil Pruett, at 16:23 EDT Tel , Service support , CC: Shahzad Carbone; Rodo Zamorano MD Supervisor Hanging And Trimming: Signed BASIC METABOLIC Collected: 02/17/2018 Status: F Source: [place] PROFILE (BMP) 12:15 PM [facility] [place] REPOSITORY TYPE CODE TESTS RESULT OUT OF RANGE REFERENCE UNITS LAB L501.0100 74-106 mg/dL Normal GLU 95 Result Comment: Please note revised GLUCOSE reference range effective 2017. LAB L501.1000 7-18 mg/dL Normal BUN 9 LAB L501.1100 0.70-1.30 mg/dL Low CREAT,SERUM 0.68 Result Comment: The validity of the calculated GFR AND GFRAA in patients over 70 years has not been determined. Clinical correlation is essential. LAB L501.1110 >60 mL/min Normal EST GFR 121 Result Comment: Non- GFR Calc LAB L501.1115 >60 mL/min Normal EST GFR - AA 147 Result Comment: GFR Calc LAB L501.1255 ml/min Normal Estimated CRCL 64.60 LAB L501.1300 10-20 RATIO Normal BUN/CRE 13.2 LAB L501.2200 8.5-10 mg/dL Normal .1 CA 8.9 LAB L501.5300 136-14 mmol/L Normal 5 NA 143 LAB L501.5600 3.5-5. mmol/L Normal 1 K 3.9 LAB L501.5900 98-107 mmol/L High CL 110 LAB L501.6100 21.0-3 mmol/L Normal 2.0 CO2 28.0 LAB L501.6200 5-15 Normal GAP 5 Performed By: #### L500.2500 #### [facility] [address] [place], [place], [id number] CBC W/DIFF, AUTOMATED Collected: 02/17/2018 Status: F Source: [place] 12:00 PM [facility] REPOSITORY TYPE CODE TESTS RESULT OUT OF RANGE REFERENCE UNITS LAB L100.1000 4.4-11.0 K/mm3 Normal WBC 6.1 LAB L100.1200 4.6-6.2 M/mm3 Low RBC 4.34 LAB L100.1300 13.0-16.5 g/dl Low HGB 12.3 LAB L100.1400 40-54 % Low HCT 37.4 LAB L100.1500 80-94 fL Normal MCV 86.2 LAB L100.1600 27.0-32.0 pg Normal MCH 28.3 LAB L100.1700 32-36 g/gl Normal MCHC 32.9 LAB L100.1810 11.6-14.6 % Normal RDW CV 14.6 LAB L100.1820 35.1-43.9 fl High RDW SD 45.9 LAB L100.1900 150-450 K/mm3 Normal PLT 208 LAB L100.2000 6.2-12.0 fl Normal MPV 9.6 LAB L100.2100 47-70 % Normal NEUT% 53.3 LAB L100.2200 19-41 % Normal LY% 35.6 LAB L100.2300 0-10 % Normal MONO% 5.1 LAB L100.2400 0-5 % High EO% 5.1 LAB L100.2500 0-1 % Normal BASO% 0.7 LAB L100.2550 0.0-0.9 % Normal IM GRAN % 0.200 Result Comment: IG% - Immature Granulocytes (promyelocytes, myelocytes and metamyelocytes) > 1% indicates that a LEFT SHIFT is Present. LAB L100.2620 2.0-7.7 X10 3/uL Normal Absolute Neut 3.3 LAB L100.2720 0.83-4.51 X10 3/ul Normal Absolute Lymph 2.18 Performed By: #### L100.0100 #### [facility] [address] [place], [address] LUMBAR SPINE 2 OR 3 Observed: 02/17/2018 Status: F Source: [place] VIEWS 8:43 AM [facility] REPOSITORY [facility] Imaging Services [address] [place] [address] Lumbar Spine 2 or 3 Views MR#: [id number] Acct: [id number] Name: ARAM KRUGER Rep #: [id number] : 1945 M 72 From: Vicente Obrien MD PCP: Rodo Zamorano MD Status: REG ER Study: Lumbar Spine 2 or 3 Views Date of Exam: 02/17/18 Exam# [id number] Ordering Dr: Jaylon Roberts MD STUDY: X-RAY - LUMBAR SPINE REASON FOR EXAM: Male, 72 years old. NO KNOWN RECENT INJURY. PAIN IN LOWER BACK FOR A LONG TIME. HX OF LOWER BACK SURGERY TO CLEAN IT OUT PER PATIENT. TECHNIQUE: 3 view(s) of the lumbar spine were obtained. COMPARISON: None FINDINGS: Normal lumbar lordosis. There is no substantial scoliosis. There is a normal alignment of the vertebrae. There is diffuse demineralization with multi-level endplate spondylosis. There is multi-level degenerative disc disease with multi- level disc space narrowing. There is atherosclerotic calcification of the abdominal aorta without a demonstrated aneurysm. RAD/Lumbar Spine 2 or 3 Views IMPRESSION: Degenerative changes of the spine, as detailed above. Electronically Signed: Vicente Obrien MD at 9:50 EDT Tel , Service support , CC: Jaylon Roberts MD; Rodo Zamorano MD Supervisor Hanging And Trimming: Signed DISCHARGE INSTRUCTION Observed: 02/07/2018 Status: F Source: [place] 4:42 PM [facility] REPOSITORY [facility] Medical Records Department [address] [place] [address] Discharge Instruction 02/07/18 1641 MR#: [id number] Acct: [id number] Name: ARAM KRUGER Rep #: [id number] : 1945 72 From: Carl Khalil MD PCP: Rodo Zamorano MD Status: REG ER ED Disposition - Plan for ED Patient: Disposition: Home or Assisted Living Chief Complaint: Back Instructions: ED Neck Back Pain General Prescriptions: Acetaminophen [Tylenol] 650 mg PO TID #30 tab Lidocaine [Lidoderm Patch] 1 patch TOPICAL BID.TCU #20 patch Referrals: Rodo Zamorano MD [Primary Care Provider] - What to do if you have Problems For any increased pain, shortness of breath, bleeding, nausea or vomiting, chest pain, or any unexpected problems, contact your Primary Care Provider. Call [facility] ([phone]) or report to the closest Emergency Room. Call 911 if necessary. 02/07/181641 <Electronically signed by Carl Khalil MD> Date Carl Khalil MD Cosigner Signature (If Indicated): Date CC: Rodo Zamorano MD EMERGENCY DEPARTMENT Observed: 02/07/2018 Status: F Source: [place] SUMMARY 4:40 PM [facility] REPOSITORY [facility] Medical Records Department [address] [place] [address] Emergency Department Summary 02/07/18 1626 MR#: [id number] Acct: [id number] Name: ARAM KRUGER Rep #: [id number] : 1945 72 From: Carl Khalil MD PCP: Rodo Zamorano MD Status: REG ER - ER Visit Summary Date of Service: 02/07/18 Chief Complaint: Back pain History of Present Illness: The patient is a 72 M who was making the bed this morning and when he bent over he started having back pain. He states he has pain in the lumbar part of his back. He has had pain in this area previously. Is worse with movement and better when he remains still. No paresthesias, bowel or bladder incontinence. He denies any fevers. He did take aspirin but it did not help his pain. Physical Examination: Vital signs reviewed. Heart is regular. Lungs are clear. Abdomen soft. Back is tender in the lumbar region diffusely. Neurologic exam is normal. Test Results: None indicated Emergency Department Course and Treatment: Patient was given morphine subcutaneously here. He had improvement with this. He tells me he does not want any narcotics for pain at home. I will give him Tylenol with lidocaine patches for his back. He will stretch will follow up with his primary care physician Treatment Plan: [] Disposition: Discharge Impression: Lumbar back pain This note was generated with [employer] dictation software. It may contain incorrect words, spelling, and punctuation that were not noted in review of the chart prior to signing ED Disposition - Plan for ED Patient: Chief Complaint: Back Referrals: Rodo Zamorano MD [Primary Care Provider] - What to do if you have Problems For any increased pain, shortness of breath, bleeding, nausea or vomiting, chest pain, or any unexpected problems, contact your Primary Care Provider. Call [facility] ([phone]) or report to the closest Emergency Room. Call 911 if necessary. 02/07/18 1640 <Electronically signed by Carl Khalil MD> Date Carl Khalil MD Cosigner Signature (If Indicated): Date CC: Rodo Zamorano MD HEMOGLOBIN A1C Collected: 01/06/2018 Status: F Source: [place] 11:51 AM [facility] REPOSITORY TYPE CODE TESTS RESULT OUT OF RANGE REFERENCE UNITS LAB L501.9985 4.2-6.3 % Normal HGB A1C 6.0 Performed By: #### L501.9985 #### [facility] [address] [place], [address] WRIST MIN 3 VIEWS Observed: 01/06/2018 Status: F Source: [place] 11:45 AM [facility] REPOSITORY [facility] Imaging Services [address] [place] [address] Wrist min 3 Views MR#: [id number] Acct: [id number] Name: ARAM KRUGER Rep #: [id number] : 1945 M 72 From: Willie Aguilera MD PCP: Rodo Zamorano MD Status: REG CLI Study: Wrist min 3 Views Date of Exam: 01/06/18 Exam# [id number] Ordering Dr: Ventura Escalante MD STUDY: X-RAY - LEFT WRIST REASON FOR EXAM: Wrist pain. TECHNIQUE: 3 view(s) of the wrist were obtained. COMPARISON: None. FINDINGS: Normal visualized distal radius and ulna. Normal radiocarpal articulation. Normal distal radioulnar articulation. Normal carpal bones. Normal carpal articulations. Normal carpometacarpal articulation of the thumb. Normal second through fifth carpometacarpal articulations. Normal visualized metacarpal bones. There are very small calcifications at the ulnar aspect of the ulnar styloid process. RAD/Wrist min 3 Views IMPRESSION: Very small soft tissue calcifications. Otherwise, unremarkable x-ray examination of the left wrist. Electronically Signed: Willie Aguilera MD at 12:28 EDT Tel , Service support , CC: Ventura Escalante MD; Rodo Zamorano MD Supervisor Hanging And Trimming: Signed WRIST MIN 3 VIEWS Observed: 01/06/2018 Status: F Source: [place] 11:45 AM [facility] REPOSITORY [facility] Imaging Services [address] [place] [address] Wrist min 3 Views MR#: [id number] Acct: [id number] Name: ARAM KRUGER Rep #: [id number] : 1945 M 72 From: Willie Aguilera MD PCP: Rodo Zamorano MD Status: REG CLI Study: Wrist min 3 Views Date of Exam: 01/06/18 Exam# [id number] Ordering Dr: Ventura Escalante MD STUDY: X-RAY - RIGHT WRIST REASON FOR EXAM: Wrist pain. TECHNIQUE: 3 view(s) of the wrist were obtained. COMPARISON: None. FINDINGS: Normal visualized distal radius and ulna. Normal radiocarpal articulation. Normal distal radioulnar articulation. Normal carpal bones. Normal carpal articulations. Normal carpometacarpal articulation of the thumb. Normal second through fifth carpometacarpal articulations. Normal visualized metacarpal bones. The soft tissue structures are unremarkable. RAD/Wrist min 3 Views IMPRESSION: Unremarkable x-ray examination of the right wrist. Electronically Signed: Willie Aguilera MD at 12:29 EDT Tel , Service support , CC: Ventura Escalante MD; Rodo Zamorano MD Supervisor Hanging And Trimming: Signed CARDIOLOGY VISIT Observed: 12/09/2017 Status: F Source: [place] 12:45 PM [facility] REPOSITORY [facility] [address] [place] [address] OFFICE VISIT Date of Service: 12/09/17 MR#: [id number] Acct: [id number] Name: ARAM KRUGER Rep #: [id number] : 1945 Provider: SUKHDEEP Valdes Age/Sex: 72/M Location: [facility] Status: Signed HPI HPI Details: ARAM KRUGER, is a 72 M who presents to the office today for a cardiovascular outpatient follow-up. His history of coronary artery disease with angioplasty and stenting to his LAD in May 2005 and to his mid RCA and February 2010. He also has history of peripheral vascular disease with bilateral carotid endarterectomies and abdominal aortic aneurysm, hypertension, hyperlipidemia, sleep apnea. Pt. denies chest, arm, jaw, or neck discomfort. His exercise tolerance is stable via walking. Pt. denies symptoms of CHF, palpitations, lightheadedness, near syncope, or syncopal episodes. Pt. denies worsening edema or claudication issues. Pt. denies orthopnea, PND, fever, chills, blood in urine, or blood in stool. He states waking up with some a dry mouth when his CPAP machine runs out of water. He states his breathing his usual for him. Pt. states some dizziness with quick head position changes. He states myalgia that he feels is appropriate to his exercise level. He states minimal decrease in fatigue that he attributes to age and activity level. Intake Vital Signs12/09/17 Height 5 ft 8 in 12/09/17 Weight: 226 lb 12/09/17 Body Mass Index (BMI) 34.3 12/09/17 Blood Pressure 108/58 Intake Visit Reasons: 6 M FU Shelter Director Required: No Accompanied by: none Allergies etodolac [Etodolac] Allergy (Verified 12/09/17 09:36) Unknown pregabalin [From Lyrica] Allergy (Verified 12/09/17 09:36) Unknown Medications Carvedilol [Coreg (Beta Marialuisa)] 6.25 mg PO BID 01/21/16 [History Confirmed 12/09/17] Clopidogrel Bisulfate [Plavix] 75 mg PO DAILY 01/21/16 [History Confirmed 12/09/17] Esomeprazole Mag Trihydrate [Nexium] 40 mg PO DAILY 01/21/16 [History Confirmed 12/09/17] Isosorbide Mononitrate [Isosorbide Mononitrate ER] 30 mg PO DAILY 01/21/16 [History Confirmed 12/09/17] Amlodipine/Benazepril [Lotrel 10-20 MG Capsule] 1 cap PO DAILY 06/15/16 [History Confirmed 12/09/17] atorvastatin 80 mg tablet 80 mg PO QHS #90 tab 10/16/17 [Rx Confirmed 12/09/17] nitroglycerin 0.4 mg sublingual tablet 0.4 mg SUBLINGUAL Q5M PRN #25 tab 12/09/17 [Rx Confirmed 12/09/17] Ejection fraction %: 55 to 59 PFSH Medical History Carotid bruit (Chronic) Encounter for long-term current use of high risk medication (Chronic) Nicotine abuse (Chronic) Aortic stenosis (Chronic) Bilateral carotid artery stenosis (Chronic) Atherosclerotic heart disease of [place] coronary artery without angina pectoris (Chronic) AAA (abdominal aortic aneurysm) (Chronic) PVD (peripheral vascular disease) (Chronic) Hyperlipemia (Chronic) Hypertension (Chronic) CAD (coronary artery disease) (Chronic) Chest pain of uncertain etiology (Acute) Claudication (Acute) Dyspnea (Acute) Obesity (Acute) Shortness of breath (Acute) Surgical History Presence of coronary angioplasty implant and graft (Chronic) History of cataract surgery (Resolved) History of back surgery (Resolved) Hx of shoulder surgery (Resolved) H/O colonoscopy (Resolved) Family History Brother Hypertension Sister Hypertension Social History Smoking Status: Current every day smoker alcohol intake: never substance use type: does not use caffeine: No what type of physical activity do you participate in: walking frequency: daily ROS Const Const: Positive for fatigue; negative for weakness, body ache, fever(s) or chills ENT ENT: Positive for dizziness (when quickly moving his head) and dry mouth Cardio Chest Pain: No Palpitations: No Edema: None Muscle aches with walking: None Resp Respiratory: Negative for SOB with activity, SOB at rest, SOB orthopnea\SOB lying down or paroxysmal nocturnal dyspnea GI GI: Negative nausea, black,tarry stools, bright, red blood in stools or vomiting blood/hematemesis : Negative for hematuria or frequent nighttime urination/ nocturia Musc Musc: Positive for muscle aches/ myalgia Skin Skin: Negative non-healing lesions or rash Neuro Neuro: Positive for dizziness (when quickly moving his head); negative for lightheadedness, near syncope, syncope, orthostatic symptoms or weakness Endo Endo: Positive for fatigue Allergy Allergy/Immunology: Negative for rash Cardiology Exam Const Appearance: cooperative, healthy appearing, comfortable and no acute distress Orientation: alert, awake and oriented x3 Head Head: normal to inspection Ears: hearing grossly normal bilaterally Nose: external nose normal Face and Sinus: face symmetric Mouth: oral mucosae normal Eyes General: appearance normal, both eyes and all related structures Eyelids: eyelids normal Neck Neck: no JVD and normal visual inspection Carotids: normal carotid upstroke Chest Chest inspection: normal inspection of the chest and normal respiratory effort; negative cough Auscultation: Bilateral: Clear to Auscultation Cardio Rate: regular rate Rhythm: regular rhythm Heart sounds: S2 normal and murmur; negative rub or gallop Murmur: Grade 2/6 and RLSB GI GI: normal to inspection Neuro General: alert, awake, oriented x3 and CN's II-XI intact bilaterally Skin Skin: no rashes or lesions noted Extremities Pulses: Normal: Right Posterior Tibial Pulse, Left Posterior Tibial Pulse, Right Radial Pulse, Diminished: Left Radial Pulse Lower Extremity Edema: +1: Bilateral Psych Psychological: normal affect Supplemental Info Stress test from June 2017 was negative for stress-induced myocardial ischemia. Echocardiogram from June 2017 showed an estimated ejection fraction 55%, mild aortic valve insufficiency, and mild aortic valve calcification. Heart catheterization from June 2013 showed widely patent LAD and RCA stents, nonobstructive disease at the remaining portions of the RCA, LAD, LCx, and ejection fraction of 65%. Carotid duplex from June 2017 showed less than 50% stenosis of right internal carotid and 50-69% stenosis of left internal carotid. Abdominal aorta ultrasound from November 2017 showed aortic diameter of 2.3 x 2.3 cm with normal flow velocities. Assessment AND Plan 1. Atherosclerosis of [place] coronary artery of [place] heart without angina pectoris I25.10 Plan - BLAKE Hough Patient's stress test from June 2017 was negative for stress-induced myocardial ischemia. His heart catheterization from June 2013 showed patent LAD and RCA stents with nonobstructive disease in the remaining portions of the RCA, LAD, and LCx. His echocardiogram from June 2017 showed an ejection fraction 55%. Patient denies any chest pain, arm pain, jaw pain, neck pain, shortness of breath, or fatigue suggestive of angina at this time. We will continue to monitor this. We will not make any medication regimen changes and will continue risk factor modification. Patient has stopped his aspirin on his own accord due to bleeding when he scratches his arm. 2. Essential hypertension I10 Plan - BLAKE Hough Patient's blood pressure is well-controlled today in the office. We will continue to monitor this. We will not make any medication regimen changes. 3. Pure hypercholesterolemia E78.00; E78.0 BLAKE Ko Patient's most recent lipid from November 2017 showed cholesterol: 121, HDL: 42, LDL: 58, and triglycerides: 105. Patient will continue current statin medication. We will continue to monitor this. 4. Peripheral vascular disease I73.9 Plan - BLAKE Hough He sees for this. His recent AAA screening from November 2017 was negative. He states having upcoming carotid duplex ultrasound with Dr. Horn. On exam his left radial pulse is more diminished than his right radial pulse. He was asked to discuss this further with his next appointment with Dr. Horn. 5. Edema, unspecified type R60.9 Plan - BLAKE Hough Patient's bilateral lower extremity is most likely multifactorial, including his amlodipine. Because his blood pressure is well-controlled and the swelling is tolerable no medication adjustments will be made at this time. We will continue to monitor this. He was instructed to contact our office if it worsens or he notices new SOB. Plan Detail Other Medications Changed: Additional Comments - BLAKE Hough Discussed the above patient with Dr. Perry, he agrees with the plan of care. Thank you for allowing us to participate in the patients plan of care, if you have any questions please do not hesitate to call. This note was generated using a voice recognition system and there may be incorrect words, spelling or punctuation that were not noted when reviewing the office note prior to saving. Follow Up 7 Months ([facility] [employer]) Coding Level of Care Code Off vis,est,level 3 Diagnoses Atherosclerosis of [place] coronary artery of [place] heart without angina pectoris I25.10 [place] vs. transplanted heart: [place] heart Essential hypertension I10 Hypertension type: essential hypertension Pure hypercholesterolemia E78.00; E78.0 Hyperlipidemia type: pure hypercholesterolemia Peripheral vascular disease I73.9 Edema, unspecified type R60.9 Edema type: unspecified Coding Level of Care Code Off vis,est,level 3 Diagnoses Atherosclerosis of [place] coronary artery of [place] heart without angina pectoris I25.10 [place] vs. transplanted heart: [place] heart Essential hypertension I10 Hypertension type: essential hypertension Pure hypercholesterolemia E78.00; E78.0 Hyperlipidemia type: pure hypercholesterolemia Peripheral vascular disease I73.9 Edema, unspecified type R60.9 Edema type: unspecified 12/09/17 1147 <Electronically signed by Ventura Valdes COMMERCIAL FISHING VESSEL OPERATOR-C> Date Ventura Valdes COMMERCIAL FISHING VESSEL OPERATOR-C 12/09/17 1245<Electronically signed by Shahram Perry MD> Cosigner Signature: Date (if applicable) Shahram Perry MD CC: Rodo Zamorano MD AAA SCREENING Observed: 12/04/2017 Status: F Source: [place] 2:45 PM [facility] REPOSITORY [facility] Cardiovascular Services [address] [place] [id number] AAA Screening 12/04/17 0944 MR#: [id number] Acct: [id number] Name: ARAM KRUGER Rep #: [id number] : 1945 72 From: Avery Horn MD Attending Dr: Avery Horn MD Status: REG CLI Ordering Dr: Avery Horn MD Date: 12/04/17 Location: [facility] Sex: M C Admitted: Reason For Study: AAA Aorta Measurements Aorta Doppler Measurements Proximal aorta measures2.3 x 2.3cm. in cross- Peak systolic flow velocities within the proximal sectional axis. aorta measure 67.5 cm/sec. Proximal aorta measures2.3cm. in longitudinal Peak systolic flow velocities within the mid axis. aorta measure 83.0 cm/sec. Mid aorta measures1.9 x 1.9cm. in cross-sectionalPeak systolic flow velocities within the distal axis. aorta measure 47.7 cm/sec. Mid aorta measures1.9cm. in longitudinal axis. Distal aorta measures1.7 x 1.7cm. in cross- sectional axis. Distal aorta measures1.8cm. in longitudinal axis. Procedure Aorta IVC Iliac vasculature or bypass grafts 36132. Technically difficult due to body habitus and bowel gas. Iliac arteries not visualized. Exam performed in department. Interpretation Summary Maximal aortic diameter proximally at 2.3 x 2.3 cm. Normal flow velocities. Iliac arteries could not be visualized secondary to body habitus Ordering Physician: Avery Horn Referring Physician: Avery Horn Performed By: Rocio Montana RVT 12/04/17 1445 Date Avery Horn MD CC: Rodo Zamorano MD; Avery Horn MD Date Dictated: 12/04/17 0944 Date Transcribed: 12/04/17 144 Supervisor Hanging And Trimming: Signed LIVER PROFILE Collected: 12/04/2017 Status: F Source: [place] 10:05 AM [facility] REPOSITORY TYPE CODE TESTS RESULT OUT OF RANGE REFERENCE UNITS LAB L501.1500 6.4-8.2 g/dL Normal T PROT 6.9 LAB L501.1800 3.2-5.0 g/dL Normal ALB 3.7 LAB L501.1950 2.2-4.2 g/dL Normal GLOB 3.2 LAB L501.4100 15-37 U/L Normal AST 21 LAB L501.4305 45-117 U/L Low ALK P 36 LAB L501.4405 16-61 U/L Normal ALT 25 LAB L501.4600 0.20-1.00 mg/dL Normal T BILI 0.50 LAB L501.4700 0.00-0.30 mg/dL Normal D BILI 0.12 Performed By: #### L500.3400, L500.4100 #### [facility] [address] [place], [address] LIPID PROFILE Collected: 12/04/2017 Status: F Source: [place] 10:05 AM [facility] REPOSITORY TYPE CODE TESTS RESULT OUT OF RANGE REFERENCE UNITS LAB L501.4900 200 mg/dL Normal CHOL 121 Result Comment: <200 mg/dL Desirable 200-240 mg/dL Borderline >240 mg/dL High Risk LAB L501.5000 mg/dL Normal TRIG 105 Result Comment: The drugs N-Acetylcysteine and Metamizole may falsely depress this assay. Serum Triglycerides Reference Interval Normal <150 mg/dL Borderline high 150 - 199 mg/dL High 200 - 499 mg/dL Very High > or = 500 mg/dL LAB L501.6400 mg/dL Normal HDL 42 Result Comment: The drugs N-Acetylcysteine and Metamizole may falsely depress this assay. Reference Range HDL <40 mg/dL Low HDL Cholesterol HDL >or= 60 mg/dL High HDL Cholesterol LAB L501.6500 0-130 mg/dL Normal LDL 58 LAB L501.6600 5-40 mg/dL Normal VLDL 21 Performed By: #### L500.3400, L500.4100 #### [facility] [address] [place], [address] PT D/C SUMMARY (1) Observed: 10/17/2017 Status: F Source: [place] 12:30 PM [facility] REPOSITORY [facility] [address] [place] [address]. [address] [place], [place] [address] Fax REHABILITATION SERVICES DISCHARGE SUMMARY MR#: [id number] Acct: [id number] Name: ARAM KRUGER Rep #: [id number] : 1945 72 From: Kelvin Romo PT, Cert. MDT, OCS Referring Dr.: Rodo Zamorano MD Status: REG RCR Insurance: MEDICARE PART A B ANTHE[place] HP - PT D/C Summary It has been my pleasure to treat ARAM KRUGER under orders from Rodo Zamorano, for the diagnosis of Right Shoulder Pain for a total of 8 visit(s). Discharge Date: 10/16/17 Please see the following information for a summary of their discharge status. - Subjective Subjective: Seen DR happy with progress. ADLS' AND HOUSEWORK TASKS - Pain R SH Pain Intensity (Out of 10): 0 - Overall Improvement % Improvement: 100 - Objective Objective/Function: POSTURE: WFL. AROM: Shoulder flexion/abd 170 degrees ,ER 90. MMT: RTC/DELTOID 4/5. NUREO: intact. PALPATION: unremarkable - Goals Goal 1:: Patient will be I with HEP and progression Goal Progress: Goal Met Goal 2:: Patient will maintain proper posture t/o tx session to demo increased scap s/s Goal Progress: Goal Met Goal 3:: Patient will demo 5/5 strength in right UE Goal Progress: Goal Met Goal 4:: Patient will report 0/10 pain for 1 week Goal Progress: Goal Met - Plan Plan: D/C TO HEP - D/C Information Discharge Comments: MET GOALS, If there are questions or concerns regarding this patient's physical therapy, please feel free to call me at [phone]. Thank you for the referral of this patient. Sincerely, Kelvin Romo PT, <Electronically signed by Kelvin Romo PT, Cert. KADE, OCS> 10/17/17 1230 CC: Rodo Zamorano MD ROBBIN Signed SHOULDER MIN 2 VIEWS Observed: 09/08/2017 Status: F Source: [place] 12:04 PM [facility] REPOSITORY [facility] [facility] [address] [place] [address] 19167 Shoulder min 2 Views MR#: [id number] Acct: [id number] Name: ARAM KRUGER Rep #: [id number] : 1945 M 72 From: Kanu العلي DO PCP: Rodo Zamorano MD Status: REG CLI Study: Shoulder min 2 Views Date of Exam: 09/08/17 Exam# [id number] Ordering Dr: Rodo Zamorano MD STUDY: X-RAY - RIGHT SHOULDER REASON FOR EXAM: Male, 72 years old. No known injury. Right shoulder pain TECHNIQUE: 4 view(s) of the shoulder. COMPARISON: None. FINDINGS: Normal glenohumeral articulation. There is degenerative arthrosis of the acromioclavicular joint without inferior osseous spur formation. Normal acromion. Normal humeral head and visualized proximal humerus. The soft tissue structures are unremarkable. Normal visualized pulmonary apex. RAD/Shoulder min 2 Views IMPRESSION: Degenerative changes without acute findings Electronically Signed: Kanu العلي DO at 18:56 EST Tel , Service support , CC: Rodo Zamorano MD Supervisor Hanging And Trimming: Signed ALLERGIES ALLERGIES DATE TYPE / CODE NAME / CODE REACTION SEVERITY SOURCE 07/14/2018 Drug etodolac/F00 Unknown Unknown [facility] Allergy/4160 [id number]([place] [id number](SNOMED RM) Repository CT) 07/14/2018 Drug pregabalin/F Unknown Unknown [facility] Allergy/4160 [id number]([place] [address](SNOMED NORM) Repository CT) ENCOUNTERS ENCOUNTERS ADMIT/DISCHARGE ACCOUNT ADMITTING ENCOUNTER LOCATION SOURCE NUMBER CLASS 07/14/2018/ [id number] Ambulatory BMSBuilding:B Jose De Jesus 8 1 [facility] Repository 07/08/2018 [id number] Ambulatory Jose De Jesus Jose De Jesus 2 [facility] ing:LAB Repository 06/02/2018/ [id number] Emergency Jose De Jesus [place] 8 9 [facility] ing:ED Repository 04/13/2018 [id number] Ambulatory [place] Mchenry 0 [facility] ing:MFPLAB Repository 02/17/2018/ [id number] [place], Inpatient [place] Mc[facility] 8 9 [place] Encounter [facility] ing:PX7Saal: Repository BA650Yss: 1 02/17/2018 [id number] [place], Ambulatory BMSBuilding:B [place] 2 [place] MS.[facility] Repository 02/17/2018 [id number] [place], Ambulatory BMSBuilding:B [place] 9 [place] MS.[facility] Repository 02/07/2018/ [id number] Emergency [place] Mchenry 8 6 [facility] ing:ED Repository 01/06/2018 [id number] Ambulatory Jose De Jesus [place] 1 [facility] ing:MTRAD Repository 12/09/2017/ [id number] Ambulatory BMSBuilding:B [place] 8 5 [facility] Repository 12/04/2017 [id number] Ambulatory Jose De Jesus [place] 5 [facility] ing:CVS Repository 12/04/2017 [id number] Ambulatory BMSBuilding:B [place] 1 MS.[facility] Repository 12/03/2017 [id number] Ambulatory BMS Jose De Jesus 8 [facility] [place] [place] Repository 11/26/2017 [id number] Ambulatory BMSBuilding:B Jose De Jesus 3 [facility] Repository 11/26/2017 [id number] Ambulatory BMSBuilding:B Jose De Jesus 9 [facility] Repository 10/16/2017/ [id number] Ambulatory Jose De Jesus [place] 8 0 [facility] ing:PT Repository 09/08/2017 [id number] Ambulatory [place] Mchenry 5 [facility] ing:MTRAD Repository PAYERS PAYERS ENCOUNTER GUARANTOR PAYER SUBSCRIBER SOURCE 07/14/2018 ARAM Henry Primary ARAM J [place] [id number] Insurance:MEDICARE HENDERSONDOB: [facility] [address] [id number] Number: Repository [address]Wcr: (463) [id number] [phone] (HP) Date:2017-12-09 07/14/2018 Secondary ARAM J [place] Insurance:ANTHEMPolic HENDERSONDOB: [facility] Number: [id number] Hospital [id number] Repository Date:5783-89-53QX [address] [place] [address]67[address]QE: 07/14/2018 Tertiary NOT GIVENUNK Jose De Jesus Insurance:SELF PAY [facility] Number: Effective Repository Date:2018-07-13 07/08/2018 ARAM J Primary ARAM J [place] [id number] Insurance:MEDICARE HENDERSONDOB: Community [address] [facility] [id number] Number: Repository [id number]: [phone] [id number] [phone] () Date:2018-07-08 07/08/2018 Secondary ARAM J [place] Insurance:ANTHEMPolic HENDERSONDOB: Community y Number: [id number] Hospital [id number] Repository Date:9780-46-89XR[address] [address]DB: 07/08/2018 Tertiary NOT GIVENUNK Jose De Jesus Insurance:SELF PAY [facility] Number: Effective Repository Date:2018-07-08 06/02/2018 ARAM J Primary ARAM J [place] [id number] Insurance:MEDICARE HENDERSONDOB: Community [address] [facility] [id number] Number: Repository [id number]: [phone] [id number] [phone] () Date:2018-06-02 06/02/2018 Secondary ARAM J [place] Insurance:ANTHEMPolic HENDERSONDOB: Community y Number: [id number] Hospital [id number] Repository Date:0284-31-25WI [address] [place] [address] 84773VS: 06/02/2018 Tertiary NOT GIVENUNK Jose De Jesus Insurance:SELF PAY [facility] Number: Effective Repository Date:2018-06-02 04/13/2018 ARAM J Primary ARAM J Jose De Jesus [id number] Insurance:MEDICARE HENDERSONDOB: Community [address] [facility] [id number] Number: Repository [address]Lmf: 330 [id number] [phone] () Date:2018-04-13 04/13/2018 Secondary ARAM J Jose De Jesus Insurance:ANTHEMPolic HENDERSONDOB: Community y Number: [id number] Hospital [id number] Repository Date:6018-61-10KR [address], [place] [address]ZT: 04/13/2018 Tertiary NOT GIVENUNK [place] Insurance:SELF PAY [facility] Number: Effective Repository Date:2018-04-13 02/17/2018 ARAM J Primary ARAM J [place] [id number] Insurance:MEDICARE HENDERSONDOB: Community [address] [facility] [id number] [place] Number: Repository [id number]: 330 [id number] [phone] () Date:2018-02-17 02/17/2018 Secondary ARAM J Mc[place] Insurance:ANTHEMPolic HENDERSONDOB: Community y Number: [id number] Hospital [id number] Repository Date:7397-90-77LW [address], [place] [address]QW: 02/17/2018 Tertiary NOT GIVENUNK [place] Insurance:SELF PAY [facility] Number: Effective Repository Date:2018-02-17 02/17/2018 ARAM J Primary ARAM J Jose De Jesus [id number] Insurance:MEDICARE HENDERSONDOB: Community [address] [facility] [id number] [place] Number: Repository [address]Maa: 330 [id number] [phone] () Date:2018-02-17 02/17/2018 Secondary ARAM J [place] Insurance:ANTHEMPolic HENDERSONDOB: Community y Number: [id number] Hospital [id number] Repository Date:4115-91-28EM [address], [place] [address]AM: 02/17/2018 Tertiary NOT GIVENUNK Jose De Jesus Insurance:SELF PAY [facility] Number: Effective Repository Date:2018-02-17 02/17/2018 ARAM J Primary ARAM J [place] [id number] Insurance:MEDICARE HENDERSONDOB: Community [address] olic [id number] Number: Repository [address]Jlm: 330 [id number] [phone] (HP) Date:2018-02-17 02/17/2018 Secondary ARAM J Jose De Jesus Insurance:ANTHEMPolic HENDERSONDOB: Community y Number: [id number] Hospital [id number] Repository Date:2876-40-09OS [address] [place] [address]VA: 02/17/2018 Tertiary NOT GIVENUNK [place] Insurance:SELF PAY [facility] Number: Effective Repository Date:2018-02-17 02/07/2018 ARAM J Primary ARAM J [place] [id number] Insurance:MEDICARE HENDERSONDOB: Community [address] [facility] [id number] [place] Number: Repository [address]Cgk: 330 [id number] [phone] () Date:2018-02-07 02/07/2018 Secondary ARAM J Jose De Jesus Insurance:ANTHEMPolic HENDERSONDOB: Community y Number: [id number] Hospital [id number] Repository Date:3860-39-84UO [address] [place] [address]VP: 02/07/2018 Tertiary NOT GIVENUNK Jose De Jesus Insurance:SELF PAY [facility] Number: Effective Repository Date:2018-02-07 01/06/2018 ARAM J Primary ARAM J [place] [id number] Insurance:MEDICARE HENDERSONDOB: Community [address] [facility] [id number] Number: Repository [address]Qzr: [phone]) [id number] [phone] () Date:2018-01-06 01/06/2018 Secondary ARAM J Jose De Jesus Insurance:ANTHEMPolic HENDERSONDOB: Community y Number: [id number] Hospital [id number] Repository Date:0540-14-22IS [id number] [place] [address] 14[address]QT: 01/06/2018 Tertiary NOT GIVENUNK [place] Insurance:SELF PAY [facility] Number: Effective Repository Date:2018-01-06 12/09/2017 ARAM J Primary ARAM J Jose De Jesus [id number] Insurance:MEDICARE HENDERSONDOB: Community [address] [facility] [id number] Number: Repository [address]Krv: [phone]) [id number] [phone] () Date:2017-07-17 12/09/2017 Secondary ARAM J Jose De Jesus Insurance:ANTHEMPolic HENDERSONDOB: Community y Number: [id number] Hospital [id number] Repository Date:4214-22-53PZ [address] [place] [place] [address] 459[address]VC: 12/09/2017 Tertiary NOT GIVENUNK Jose De Jesus Insurance:SELF PAY [facility] Number: Effective Repository Date:2017-12-09 12/04/2017 Aram J Primary Aram J Mc[place] [id number] Insurance:MEDICARE HendersonDOB: Community [address] [facility] [id number] Number: Repository [address]Ykc: (014) [id number] [phone] () Date:2017-11-25 12/04/2017 Secondary Aram J Jose De Jesus Insurance:ANTHEMPolic HendersonDOB: Community y Number: [id number] Hospital [id number] Repository Date:0547-19-22LJ [address] [place] [place] [address]YK: 12/04/2017 Tertiary NOT GIVENUNK [place] Insurance:SELF PAY [facility] Number: Effective Repository Date:2017-11-25 12/04/2017 ARAM J Primary ARAM J Jose De Jesus [id number] Insurance:MEDICARE HENDERSONDOB: Community [address] olicy [id number] [place] Number: Repository [address]Owd: [phone]) [id number] [phone] () Date:2017-11-25 12/04/2017 Secondary ARAM J Mchenry Insurance:ANTHEMPolic HENDERSONDOB: Community y Number: [id number] Hospital [id number] Repository Date:8233-98-54ZF [address] [place] [address]ZS: 12/04/2017 Tertiary NOT GIVENUNK [place] Insurance:SELF PAY [facility] Number: Effective Repository Date:2017-12-04 12/03/2017 Aram J Primary Aram J Jose De Jesus [id number] Insurance:MEDICARE HendersonDOB: Community [address] [facility] [id number] [place] Number: Repository [address]Uys: 330 [id number] [phone] () Date:2017-12-03 12/03/2017 Secondary Aram J Jose De Jesus Insurance:ANTHEMPolic HendersonDOB: Community y Number: [id number] Hospital [id number] Repository Date:1079-04-61VB [address], [place] [address]NS: 12/03/2017 Tertiary NOT GIVENUNK Jose De Jesus Insurance:SELF PAY [facility] Number: Effective Repository Date:2017-12-03 11/26/2017 Aram J Primary Aram J Jose De Jesus [id number] Insurance:MEDICARE HendersonDOB: Community [address] [facility] [id number] [place] Number: Repository [address]Gqa: 330 [id number] [phone] () Date:2017-11-26 11/26/2017 Secondary Aram J Mchenry Insurance:ANTHEMPolic HendersonDOB: Community y Number: [id number] Hospital [id number] Repository Date:4827-74-47GQ [address] [address]CH: 11/26/2017 Tertiary NOT GIVENUNK Jose De Jesus Insurance:SELF PAY [facility] Number: Effective Repository Date:2017-11-26 11/26/2017 Aram J Primary Aram J Mc[place] [id number] Insurance:MEDICARE HendersonDOB: Community [address] [facility] [id number] Number: Repository [address]Kqu: [phone] [id number] [phone] (HP) Date:2017-11-26 11/26/2017 Secondary Aram J Mchenry Insurance:ANTHEMPolic HendersonDOB: Community y Number: [id number] Hospital [id number] Repository Date:4623-55-26DR [address] [address]CC: 11/26/2017 Tertiary NOT GIVENUNK Jose De Jesus Insurance:SELF PAY [facility] Number: Effective Repository Date:2017-11-26 10/16/2017 Aram J Primary Aram J Jose De Jesus [id number] Insurance:MEDICARE HendersonDOB: Community [address] [facility] [id number] [place] Number: Repository [address]Kcf: [phone] [id number] [phone] () Date:1996-10-26 10/16/2017 Secondary Aram J Jose De Jesus Insurance:ANTHEMPolic HendersonDOB: Community y Number: [id number] Hospital [id number] Repository Date:9903-60-08QZ [address] [address]CR: 10/16/2017 Tertiary NOT GIVENUNK [place] Insurance:SELF PAY [facility] Number: Effective Repository Date:2017-09-10 09/08/2017 Aram J Primary Aram J Mc[place] [id number] Insurance:MEDICARE HendersonDOB: Community [address] [facility] [id number] [place] Number: Repository [address]Nrg: [phone] [id number] [phone] () Date:2017-09-08 09/08/2017 Secondary Aram Dela Cruz Insurance:ANTHEMPolic HendersonDOB: Community y Number: [id number] Hospital [id number] Repository Date:3850-19-39TB [facility] [address], [place] [address]NM: 09/08/2017 Tertiary NOT GIVENUNK Mc[place] Insurance:SELF PAY [facility] Number: Effective Repository Date:2017-09-08
== END ==
PROVIDERS: Family Provider Family Medicine; PCP Family Medicine; Referring Provider Internal Medicine Cardiovascular Disease; Visit Provider Internal Medicine Cardiovascular Disease
DX: E78.5 Hyperlipidemia, unspecified (principal)
CPT/HCPCS: 36415; 80061; 80076

== ENCOUNTER → 2018-09-11 11:15 | Outpatient (CLI) | payer MEDICARE, BC, SELFPAY ==
[2018-07-14 12:57] VITALS: BMI 33.7
[2018-09-11 11:25] LABS: Bacteria 0 SEEN /hpf (None Seen); Mucous, Urine 0 SEEN /hpf (<or=2+); Red Blood Cells-Urine 0 SEEN /hpf (0-5); Squamous Epithelial Cells - UA 0 SEEN /hpf (0-5); White Blood Cells 0 SEEN /hpf (0-5)
[2018-09-11 13:01] LABS: Absolute Lymphocyte Count 2.05 X10^3/ul (0.83-4.51); Absolute Neutrophil Count 2.4 X10^3/uL (2.0-7.7); Basophil# 0.02 X10^3/uL; Basophil% 0.4 % (0-1); Eosinophil# 0.24 X10^3/uL; Eosinophils% 4.7 % (0-5); Hematocrit 33.6 % (40-54); Hemoglobin 10.8 g/dl (13.0-16.5); Lymphocyte # 2.05 X10^3/ul (4.0); Lymphocyte % 39.8 % (19-41); Mean Corp Hgb Conc 32.1 g/gl (32-36); Mean Corpuscular Hgb 28.2 pg (27.0-32.0); Mean Corpuscular Volume 87.7 fL (80-94); Mean Platelet Vol. 9.7 fl (6.2-12.0); Monocyte# 0.42 X10^3/uL; Monocyte% 8.2 % (0-10); Neutrophil # 2.42 X10^3/uL (2.7-7.7); Neutrophil % 46.9 % (47-70); Platelet Count 200 K/mm3 (150-450); RBC Distribution Width CV 14.7 % (11.6-14.6); RBC Distribution Width SD 46.5 fl (35.1-43.9); Red Blood Count 3.83 M/mm3 (4.6-6.2); White Blood Count 5.2 K/mm3 (4.4-11.0)
[2018-09-11 13:03] LABS: POSITIVE COUNT NO; POSITIVE DIFFERENTIAL NO; POSITIVE MORPHOLOGY NO
[2018-09-11 13:09] LABS: Color, Urine Yellow (Yellow); Glucose, Dipstick Normal (Normal); Ketone-Dipstick 5 mg/dl (Negative); Leukocyte Esterase-Dipstick 25 /ul (Negative); Nitrite-Dipstick Negative (Negative); Occult Blood-Urine Negative /ul (Negative); Protein-Dipstick 15 mg/dl (Negative); Specific Gravity, Urine 1.015 (1.002-1.030); Urine Clarity Clear (Clear); Urine Urobilinogen 1 mg/dl (Normal)
[2018-09-11 13:13] LABS: Urine Bilirubin Dipstick 1 mg/dL (Negative)
[2018-09-11 13:28] LABS: Anion Gap 8 (5-15); BUN 13 mg/dL (7-18); BUN/Creat Ratio 15.8 RATIO (10-20); Calcium,Total 8.6 mg/dL (8.5-10.1); Chloride 108 mmol/L (98-107); Creatinine, Serum 0.82 mg/dL (0.70-1.30); EST Glomerular Filtration Rate 97 mL/min (>60); Est Glom Filt Rate - Afr Amer 118 mL/min (>60); Glucose 98 mg/dL (74-106); Potassium 3.8 mmol/L (3.5-5.1); Sodium Level 142 mmol/L (136-145)
== END ==
PROVIDERS: Family Provider Family Medicine; PCP Family Medicine; Referring Provider Family Medicine; Visit Provider Family Medicine
DX: R42 Dizziness and giddiness (principal)
CPT/HCPCS: 36415; 80048; 81001; 85025

== ENCOUNTER 2018-12-08 23:14 | Emergency (ER) | payer MEDICARE, BC, SELFPAY ==
[2018-07-14 12:57] VITALS: BMI 33.7
[2018-12-08 23:15] VITALS: BP 140/62; PULSE 77; RESP 20; TEMP 36.5; O2SAT 100; BMI 34.2
[2018-12-08 23:28] VITALS: PULSE 69; RESP 16; O2SAT 99
--- NOTE | 2018-12-09 00:06 | ED.DCSUM_ITS ---
- ER Visit Summary Date of Service: 12/09/18 Chief Complaint: Sore throat History of Present Illness: The patient is a 73 M who presents with a sore throat. He complains of pain with swallowing. This is been present for about 5 days. He also reports associated congestion rhinorrhea chills and cough. He has not tried any analgesics at home for this. Physical Examination: Afebrile vitals unremarkable Moist mucous membranes Posterior oropharynx is clear no erythema there is no tonsillar exudate or uvular deviation no trismus clear voice No palpable neck mass no lymphadenopathy trachea is midline Heart regular rate and rhythm Lungs clear Test Results: Rapid strep negative Emergency Department Course and Treatment: Given patient's associated URI-like illness I do believe his symptoms are related to viral pharyngitis. He was given a dose of Decadron here for symptomatic relief and advised on supportive care. He understands to return for new or worsening symptoms and was discharged home. Treatment Plan: [] Disposition: Discharge Impression: Pharyngitis This note was generated with [employer] dictation software. It may contain incorrect words, spelling, and punctuation that were not noted in review of the chart prior to signing ED Disposition - Plan for ED Patient: Referrals: Rodo Zamorano MD [Primary Care Provider] -
--- NOTE | 2018-12-09 00:06 | ED.DEP ---
ED Disposition - Plan for ED Patient: Instructions: ED Pharyngitis Viral Referrals: Rodo Zamorano MD [Primary Care Provider] -
[2018-12-09] MEDS: dexAMETHasone 4 MG Tablet 10 MG PO (00:27)
[2018-12-09 00:29] VITALS: BP 163/57; PULSE 73; RESP 18; O2SAT 98
== END 2018-12-09 00:30 | disposition home or self-care (01) ==
LOC: ED 23:57
PROVIDERS: Emergency Provider Emergency Medicine; Family Provider Family Medicine; PCP Family Medicine
DX: J02.9 Acute pharyngitis, unspecified (principal); I25.10 Atherosclerotic heart disease of native coronary artery without angina pectoris; I10 Essential (primary) hypertension; Z72.0 Tobacco use
CPT/HCPCS: 87880; 99282

== ENCOUNTER → 2018-12-18 | Outpatient (CLI) | payer MEDICARE, BC, SELFPAY ==
[2018-07-14 12:57] VITALS: BMI 33.7
[2018-12-08 23:15] VITALS: BMI 34.2
--- NOTE | 2018-12-18 08:10 | AAAS_ITS ---
Reason For Study: AAA Aorta Measurements Aorta Doppler Measurements Proximal aorta measures2.3 x 2.3cm. in cross- Peak systolic flow velocities within the proximal sectional axis. aorta measure 45.3 cm/sec. Proximal aorta measures2.3cm. in longitudinal Peak systolic flow velocities within the mid aorta axis. measure 52.3 cm/sec. Mid aorta measures1.8 x 1.8cm. in cross-sectional Peak systolic flow velocities within the distal axis. aorta measure 86.7 cm/sec. Mid aorta measures1.8cm. in longitudinal axis. Distal aorta measures1.92 x 1.96cm. in cross- sectional axis. Distal aorta measures1.92cm. in longitudinal axis. Left Iliac Artery Left iliac artery measures 1.07 x 1.11 cm. in the cross-sectional axis. Left iliac artery measures 1.02 cm. in the longitudinal axis. Peak systolic velocity in the left iliac artery measures 120.5 cm/sec. Right Iliac Artery Right iliac artery measures 1.16 x 1.18 cm. in the cross-sectional axis. Right iliac artery measures 1.12 cm. in the longitudinal axis. Peak systolic velocity in the right iliac artery measures 43.4 cm/sec. Procedure Aorta IVC Iliac vasculature or bypass grafts 47927. Patient was scanned in supine position during reflux assessment. Technically difficult study due to body habitus and bowel gas. Exam performed in department. Interpretation Summary Maximal aortic diameter proximally 2.3 x 2.3 cm with normal flow Left common iliac 1.07 x 1.11 cm with slightly increased velocity Right common iliac 1.16 x 1.18 cm with normal flow Ordering Physician: Avery Horn Referring Physician: Rodo Zamorano Performed By: Bridget Reis, RDCS, RVT
--- NOTE | 2018-12-18 08:10 | CDU_ITS ---
Reason For Study: stenosis Rt. Velocities/BP Lt. Velocities/BP Prox CCA 86.9/9.9 cm/sec. Prox CCA 80.9/14.6 cm/sec. Mid CCA 86.9/13.8 cm/sec. Mid CCA 78.5/12.2 cm/sec. Dist CCA 79.0/13.8 cm/sec. Dist CCA 76.0/15.8 cm/sec. Prox ICA 166.6/26.1 cm/sec. Prox ICA 94.8/14.4 cm/sec. Mid ICA 146.8/23.9 cm/sec. Mid ICA not measured. Dist ICA 105.1/19.5 cm/sec. Dist ICA 171.0/21.7 cm/sec. Prox ECA 312.2/0.0 cm/sec. Prox ECA 162.9/17.9 cm/sec. Rt. Vert. 124.9/19.5 cm/sec. Lt. Vert. 64.7/0.0 cm/sec. Right Extracranial There is heterogeneous, irregular atherosclerotic plaque noted in the right common carotid artery. There is heterogeneous, smooth atherosclerotic plaque noted in the right internal carotid artery. There is homogeneous, irregular atherosclerotic plaque noted in the right external carotid artery. The atherosclerotic plaque causes acoustic shadowing. Antegrade flow is noted in the right vertebral artery. Left Extracranial There is heterogeneous, irregular atherosclerotic plaque noted in the left common carotid artery. There is heterogeneous, smooth atherosclerotic plaque noted in the left internal carotid artery. There is homogeneous, smooth atherosclerotic plaque noted in the left external carotid artery. Antegrade flow is noted in the left vertebral artery. Procedure Carotid Duplex 19783. The study was technically difficult. Exam performed in department. Image #43 is not the LT ICA MID. It appears to be MID ECA. Interpretation Summary Post operative changes right carotid bulb and proximal internal carotid with 50-69% stenosis of the right internal carotid--although this is likely flow related to patch angioplasty and not clinically significant 50-99% stenosis right external carotid Irregular plague proximal left internal carotid with 50-69% stenosis. <50% stenosis left external carotid Patent and antegrade vertebrals bilaterally Technically difficult exam Ordering Physician: Avery Horn Referring Physician: Rodo Zamorano Performed By: Bridget Reis, DAVI, RVT
== END | disposition home or self-care (01) ==
LOC: CVS 08:03
PROVIDERS: Family Provider Family Medicine; PCP Family Medicine; Referring Provider Surgery; Visit Provider Surgery
DX: I65.23 Occlusion and stenosis of bilateral carotid arteries (principal); I71.4 Abdominal aortic aneurysm, without rupture
CPT/HCPCS: 76706; 93880

== ENCOUNTER → 2018-12-31 | Outpatient (CLI) | payer MEDICARE, BC, SELFPAY ==
[2018-12-08 23:15] VITALS: BMI 34.2
[2018-12-31 09:29] LABS: AST(SGOT) 15 U/L (15-37); Alanine Aminotransfer ALT/SGPT 24 U/L (16-61); Albumin, Serum 3.5 g/dL (3.2-5.0); Alkaline Phosphatase 39 U/L (45-117); Bilirubin, Direct 0.12 mg/dL (0.00-0.30); Cholesterol 132 mg/dL (200); Globulin 3.5 g/dL (2.2-4.2); High Density Lipoprotein 40 mg/dL; Triglycerides 130 mg/dL; Very Low Density Lipoprotein 26 mg/dL (5-40)
== END | disposition home or self-care (01) ==
LOC: LAB 08:03
PROVIDERS: Family Provider Family Medicine; PCP Family Medicine; Referring Provider Internal Medicine Cardiovascular Disease; Visit Provider Internal Medicine Cardiovascular Disease
DX: E78.5 Hyperlipidemia, unspecified (principal)
CPT/HCPCS: 36415; 80061; 80076

== ENCOUNTER 2019-01-25 00:18 | Emergency (ER) | payer MEDICARE, BC, SELFPAY ==
[2019-01-21 08:28] VITALS: BMI 33.7
[2019-01-25 00:19] VITALS: BP 195/60; PULSE 65; RESP 14; TEMP 36.8; O2SAT 99; BMI 34.6
--- NOTE | 2019-01-25 00:43 | CT_ITS ---
HISTORY: DIZZINESS AND RT SIDED HEADACHE,ELEVATED BPHX:HTN,CAD-ON BLOOD THINNERS TECHNIQUE: Multiple axial images were obtained of the brain without intravenous contrast. A radiation dose optimization technique was used for this scan. COMPARISON: MRI of brain from February 20, 2015. Findings: CT images of the head were obtained without contrast. Periventricular deep and subcortical white matter disease is present. Chronic disease within the left mastoid air cells and to a lesser degree right mastoid air cells is suggested on the previous MRI 2.8 x 1.1 cm right frontal meningioma is unchanged.. The brain is atrophic. Calcific ASCVD involves intracranial arteries. No acute intracranial edema or hemorrhage. No acute abnormality of orbits. Middle ear cavities and mastoid air cells are well aerated. Skull is normal. CT/Brain/Head without Contrast IMPRESSION: No acute intracranial abnormality. Chronic changes as above. ASPECT 10. Individualized dose optimization techniques were used for this CT. at 0119 Reported and signed by: Mook Ngo MD Electronically Signed: Mook Ngo MD at 1:17 EDT Tel , Service support ,
--- NOTE | 2019-01-25 00:43 | EKG12_ITS ---
Test Reason : CP Blood Pressure : / mmHG Vent. Rate : 064 BPM Atrial Rate : 064 BPM P-R Int : 162 ms QRS Dur : 094 ms QT Int : 422 ms P-R-T Axes : 048 042 031 degrees QTc Int : 435 ms Normal sinus rhythm Nonspecific T wave abnormality Abnormal ECG Confirmed by BARI NESBITT, CLARITZA ([id number]), restaurant expeditor CLAUDIA MCCARTHY ([id number]) on 01/25/2019 1:16:20 PM Referred By: BB Confirmed By:CLARITZA CANDELARIA MD
[2019-01-25] MEDS: Meclizine HCl 25 MG Tablet PO (00:47)
--- NOTE | 2019-01-25 00:50 | ED.VIS.GEN ---
History of Present Illness Chief Complaint: Dizziness Informant: Patient, Significant Other Onset: Hours - 0.5 Context: Sudden Onset - upon getting out of bed to use bathroom Timing: Continuous Quality: room/floor spinning Location: head Current Severity: gone Maximum Severity: Severe Worsened by: turning head Relieved by: remaining still Associated Symptoms: mild right headache earlier, gone now. Narrative: Patient is very poor historian and states that he had some pain below his right rib cage 2 days ago that was relatively brief that is not there now, had some left wrist pain earlier this evening but not associated with his dizziness, and states that he has had some chronic right ear problems that required a tympanostomy tube remotely, but that came out last year. States he saw ENT for vertigo in the past and they were told him about calcium deposits in his little loops in my right inner ear. He states has not had it like this before. He denies near syncope or syncope. He did not have any injury or hit his head. No nausea or vomiting. Denies any vision problems or diplopia. No new ear symptoms tonight. He wears hearing aids bilaterally. He denies any focal peripheral neurologic symptoms. Denies any chest discomfort or shortness of breath. He states he got the symptoms immediately upon getting out of bed, and as he went to the bathroom they got worse. When he got there, he had a hold on to a wall and looking down felt the floor was spinning. - Past Medical History (1) AAA (abdominal aortic aneurysm) Status: Chronic (2) Aortic stenosis Status: Chronic (3) Atherosclerotic heart disease of [place] coronary artery without angina pectoris Status: Chronic (4) Bilateral carotid artery stenosis Status: Chronic (5) CAD (coronary artery disease) Status: Chronic (6) Hyperlipemia Status: Chronic (7) Hypertension Status: Chronic (8) Nicotine abuse Status: Chronic (9) PVD (peripheral vascular disease) Status: Chronic (10) Presence of coronary angioplasty implant and graft Status: Chronic Comment: PTCA of LAD cypher stent 2004; [facility] with PTCA Promus stent to mid RCA 03/07/10; Past Medical History - Allergies and Home Meds Allergies/Adverse Reactions: Allergies etodolac [Etodolac] Allergy (Verified 01/21/19 08:28) Unknown pregabalin [From Lyrica] Allergy (Verified 01/21/19 08:28) Unknown Primary Care Physician: Rodo Zamorano MD [Primary Care Provider] - Surgical History: appendectomy, - - Catheterization and stenting, back surgery, shoulder surgery, bilateral carotid endarterectomy, bowel resection Lives: Spouse/ Significant Other Smoking Status: Current every day smoker Alcohol: None Drugs: None - Family History Sibling Family History: Family History (Last Reviewed 01/21/19 @ 08:26 by Jocelyne Vila) Brother Hypertension Sister Hypertension Family History: Reports: Hypertension Maternal Family History: Family History (Last Reviewed 01/21/19 @ 08:26 by Jocelyne Vila) Brother Hypertension Sister Hypertension Family History: Reports: No pertinent history Paternal Family History: Family History (Last Reviewed 01/21/19 @ 08:26 by Jocelyne Vila) Brother Hypertension Sister Hypertension Family History: Reports: No pertinent history Review of Systems General: Reports: Malaise. Denies: Chills, Fever, Sweats Eyes: Denies: Visual changes - bilaterally, Diplopia ENT: Reports: Right ear pain - see HPI; no acute ear issues tonight/today. Denies: Rhinorrhea, Sore throat Cardiovascular: Denies: Chest pain, Palpitations Respiratory: Denies: Dyspnea, Cough, Dyspnea on exertion Gastrointestinal: Denies: Abdominal pain, Nausea, Vomiting, Diarrhea, Melena, Hematochezia Genitourinary: Denies: Dysuria, Hematuria, Frequency Musculoskeletal: Reports: Swelling - BLE, worse today than usual. Denies: Back pain, Extremity Pain Skin: Denies: Rash, Wounds Neurological: Denies: Headache, Weakness, Numbness Physical Exam Vital Signs/Narrative: Vital Signs Temp Pulse Resp BP Pulse Ox 01/25/19 00:19 98.2 F 65 14 195/60 H 99 Inital Vital Signs reviewed: Yes General: Well nourished, Well developed, No Acute Distress Head: Normocephalic, Atraumatic Eyes: Perrl, EOMI, - - no abnormal nystagmus in any direction ENT: Moist mucous membranes, No rhinorrhea, TM's clear - scarring on right Neck: Supple, Nontender, No lymphadenopathy, No JVD Cardiovascular: Regular rate, Regular rhythm, Murmur - soft systolic Respiratory: No distress, CTA bilaterally, Chest nontender Abdomen: Soft, Nontender, Nondistended, Normal bowel sounds Back: Nontender, Normal Inspection Extremities: Nontender, Edema - 2+ BLE, symmetric to knees Skin: Normal color, No rash, No Trauma Neurological: Alert, Oriented x3, Cranial nerves II-XII grossly intact, Normal Strength, Normal Sensation, Normal DTR - toes downgoing bilat, - - Pos Joce-Hallpike to right only Psychological: Normal affect, Normal Mood Diagnostic/Tx/Re-eval Impressions Brain CT 01/25/19 00:43 IMPRESSION: No acute intracranial abnormality. Chronic changes as above. ASPECT 10. Individualized dose optimization techniques were used for this CT. at 0119 Reported and signed by: Mook Ngo MD Electronically Signed: Mook Ngo MD at 1:17 EDT Tel , Service support , 01/25/19 00:43 Brain/Head without Contrast [CT] Stat Laboratory Results 01/25/19 01/25/19 00:25 00:25 WBC 5.8 RBC 4.18 L Hgb 12.0 L Hct 35.5 L MCV 84.9 MCH 28.7 MCHC 33.8 RDW 14.9 H RDW Differential 46.4 H Plt Count 203 MPV 9.8 Immature Gran % (Auto) 0.000 Neut % (Auto) 47.3 Lymph % (Auto) 43.2 H Tripp % (Auto) 5.3 Eos % (Auto) 3.9 Baso % (Auto) 0.3 Absolute Neuts (auto) 2.8 Absolute Lymphs (auto) 2.52 Total Counted Not Reportable Sodium 142 Potassium 4.1 Chloride 112 H Carbon Dioxide 26.0 Anion Gap 4 L BUN 12 Creatinine 0.86 Estim Creat Clear Calc 74.01 Est GFR (MDRD) Af Amer 112 Est GFR (MDRD) Non-Af 92 BUN/Creatinine Ratio 13.9 Glucose 117 H Calcium 9.0 Troponin I < 0.015 - Rhythm Strip Rhythm Strip: Sinus Rhythm Rate: 64 Ectopy: None - EKG Initial EKG Interpretation: Sinus Rhythm, No Acute Injury Pattern, Non-Specific ST Changes - inf-lat Prior: Unchanged - Medical Decision Making Work-up was obtained given the patient's very high blood pressure, medical history with continued smoking, and the fact that he is a very poor historian. CT had shows prior meningioma in the right frontal lobe which is unchanged compared with his MRI from 2015, no other acute abnormalities. His labs and EKG are unremarkable. After meclizine he is feeling better and ambulatory. Reassured that this is peripheral vertigo and discharged with a prescription for meclizine and advised to follow-up with ENT for persistent symptoms. His history and exam are certainly consistent with right-sided BPPV. Also, on multiple reads his blood pressure is 173/80s. He has aortic stenosis so instead of hydralazine he is given a dose of clonidine, I do not think he is having acute symptoms from this pressure. He is discharged home with instructions to double his carvedilol which is currently at 6.25 mg twice daily, until he is able to follow-up with his doctor for recheck and reevaluation. ED Disposition - Plan for ED Patient: Disposition: Home or Assisted Living Diagnosis: Benign paroxysmal positional vertigo of right ear, Accelerated hypertension Instructions: Benign Positional Vertigo, Controlling High Blood Pressure Prescriptions: Meclizine HCl [Antivert] 25 mg PO TID PRN PRN #16 tab PRN Reason: Vertigo Transmission Status: Pending to [id number] Referrals: Rodo Zamorano MD [Primary Care Provider] - As soon as possible Kp Tavares MD [STAFF PHYSICIAN] - 3-5 Days if not improving Additional Instructions: Double your carvedilol dose from 6.25 mg twice daily to 12.5 mg twice daily until you follow-up with your doctor.
[2019-01-25 00:56] LABS: Absolute Lymphocyte Count 2.52 X10^3/ul (0.83-4.51); Absolute Neutrophil Count 2.8 X10^3/uL (2.0-7.7); Basophil# 0.02 X10^3/uL; Basophil% 0.3 % (0-1); Eosinophil# 0.23 X10^3/uL; Eosinophils% 3.9 % (0-5); Hematocrit 35.5 % (40-54); Lymphocyte # 2.52 X10^3/ul (4.0); Lymphocyte % 43.2 % (19-41); Mean Corp Hgb Conc 33.8 g/gl (32-36); Mean Corpuscular Hgb 28.7 pg (27.0-32.0); Mean Corpuscular Volume 84.9 fL (80-94); Mean Platelet Vol. 9.8 fl (6.2-12.0); Monocyte# 0.31 X10^3/uL; Monocyte% 5.3 % (0-10); Neutrophil # 2.76 X10^3/uL (2.7-7.7); Neutrophil % 47.3 % (47-70); Platelet Count 203 K/mm3 (150-450); RBC Distribution Width CV 14.9 % (11.6-14.6); RBC Distribution Width SD 46.4 fl (35.1-43.9); Red Blood Count 4.18 M/mm3 (4.6-6.2); White Blood Count 5.8 K/mm3 (4.4-11.0)
[2019-01-25 00:57] LABS: POSITIVE COUNT NO; POSITIVE DIFFERENTIAL NO; POSITIVE MORPHOLOGY NO
[2019-01-25 01:19] LABS: Anion Gap 4 (5-15); BUN 12 mg/dL (7-18); BUN/Creat Ratio 13.9 RATIO (10-20); Chloride 112 mmol/L (98-107); Creatinine, Serum 0.86 mg/dL (0.70-1.30); EST Glomerular Filtration Rate 92 mL/min (>60); Est Glom Filt Rate - Afr Amer 112 mL/min (>60); Estimated Creatinine Clearance 74.01 ml/min; Glucose 117 mg/dL (74-106); Potassium 4.1 mmol/L (3.5-5.1); Sodium Level 142 mmol/L (136-145)
[2019-01-25 01:31] VITALS: BP 173/61; PULSE 67; RESP 14; O2SAT 95
[2019-01-25 01:45] VITALS: BP 173/52; PULSE 70; RESP 14; O2SAT 98
[2019-01-25] MEDS: cloNIDine HCl 0.1 MG Tablet PO (02:04)
[2019-01-25 02:05] VITALS: BP 164/53; PULSE 66; RESP 14; O2SAT 98
== END 2019-01-25 02:05 | disposition home or self-care (01) ==
PROVIDERS: Emergency Provider Emergency Medicine; Family Provider Family Medicine; PCP Family Medicine
DX: H81.11 Benign paroxysmal vertigo, right ear (principal); I10 Essential (primary) hypertension; I73.9 Peripheral vascular disease, unspecified; F17.200 Nicotine dependence, unspecified, uncomplicated; E78.5 Hyperlipidemia, unspecified; I25.10 Atherosclerotic heart disease of native coronary artery without angina pectoris; I35.0 Nonrheumatic aortic (valve) stenosis; I71.4 Abdominal aortic aneurysm, without rupture; Z95.5 Presence of coronary angioplasty implant and graft; Z79.899 Other long term (current) drug therapy
CPT/HCPCS: 70450; 80048; 84484; 85025; 93005; 99284; A4216

== ENCOUNTER 2019-03-19 09:12 | Observation (INO) | payer MEDICARE, BC, SELFPAY ==
[2019-02-22 12:56] VITALS: BMI 33.7
[2019-03-19] VITALS (16 sets, daily range): BP systolic 129–174; BP diastolic 50–83; PULSE 56–76; RESP 11–18; TEMP 36.5–36.7; O2SAT 94–100; BMI 34.2; BMI 33.0; BMI 33.1
--- NOTE | 2019-03-19 09:26 | RAD_ITS ---
STUDY: X-RAY CHEST REASON FOR EXAM: Male, 73 years old. Chest pain TECHNIQUE: Single AP portable view of the chest. COMPARISON: 04/29/2017 FINDINGS: The lungs are clear and expanded. There is no demonstrated pleural abnormality. Normal size heart. Normal mediastinum and oren. Normal visualized pulmonary arteries. Normal visualized aortic arch and descending thoracic aorta. There are diffuse degenerative changes of the visualized thoracic spine. Normal visualized ribs, clavicles, and shoulders. There is no demonstrated abnormality of the visualized soft tissue structures of the upper abdomen. RAD/Chest 1 View (Portable) IMPRESSION: No acute intrathoracic process. No evidence of pneumonia or CHF. Electronically Signed: Seth Young MD at 10:13 EDT Tel [phone], Service support ,
--- NOTE | 2019-03-19 09:26 | EKG12_ITS ---
Test Reason : CP Blood Pressure : / mmHG Vent. Rate : 069 BPM Atrial Rate : 069 BPM P-R Int : 154 ms QRS Dur : 092 ms QT Int : 422 ms P-R-T Axes : 049 035 056 degrees QTc Int : 452 ms Sinus rhythm with occasional Premature ventricular complexes Nonspecific ST and T wave abnormality Abnormal ECG Confirmed by BARI NESBITT, CLARITZA ([id number]), editor news CHANCE FRANCISCO ([id number]) on 03/22/2019 11:43:21 AM Referred By: SMITHA Confirmed By:CLARITZA CANDELARIA MD
--- NOTE | 2019-03-19 09:26 | ED.VIS.CHEST ---
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 Not Worsened By: Exertion, Movement of Arm, Movement of Torso, Breathing, Coughing Relieved By: NTG - x1 Associated Symptoms: Dyspnea - a little, Lightheadedness, - - malaise. Negative for: Nausea, Vomiting, Diaphoresis, Cough, Fever, Acid Reflux, Palpitations Narrative: Patient has history of 2 stents that were placed long ago, he states he never gets chest discomfort but this started out of nowhere while at rest this morning around 30 minutes prior to arrival. One nitroglycerin made him feel much better, the discomfort is almost completely gone. He states he does not take aspirin but is compliant with his clopidogrel. - Past Medical History (1) AAA (abdominal aortic aneurysm) Status: Chronic (2) Aortic stenosis Status: Chronic (3) Atherosclerotic heart disease of [place] coronary artery without angina pectoris Status: Chronic (4) Bilateral carotid artery stenosis Status: Chronic (5) Hyperlipemia Status: Chronic (6) Hypertension Status: Chronic (7) PVD (peripheral vascular disease) Status: Chronic Past Medical History - Allergies and Home Meds Allergies/Adverse Reactions: Allergies etodolac [Etodolac] Allergy (Verified 03/19/19 09:15) Unknown pregabalin [From Lyrica] Allergy (Verified 03/19/19 09:15) Unknown Primary Care Physician: Rodo Zamorano MD [Primary Care Provider] - Doctors: Dr. Perry-cards Surgical History: angioplasty, appendectomy, - - Catheterization and stenting, back surgery, shoulder surgery, bilateral carotid endarterectomy, bowel resection Lives: Spouse/ Significant Other Smoking Status: Current every day smoker - 10 cig/day currently - Family History Sibling Family History: Family History (Last Reviewed 02/22/19 @ 13:38 by JAMAR Gonzalez) Brother Hypertension Sister Hypertension Family History: Reports: Hypertension Maternal Family History: Family History (Last Reviewed 02/22/19 @ 13:38 by JAMAR Gonzalez) Brother Hypertension Sister Hypertension Family History: Reports: No pertinent history Paternal Family History: Family History (Last Reviewed 02/22/19 @ 13:38 by JAMAR Gonzalez) Brother Hypertension Sister Hypertension Family History: Reports: No pertinent history Review of Systems General: Reports: Malaise. Denies: Chills, Fever, Sweats Eyes: Denies: Visual changes - bilaterally, Diplopia ENT: Denies: Rhinorrhea, Sore throat Cardiovascular: Reports: Chest pain. Denies: Palpitations Respiratory: Reports: Dyspnea. Denies: Cough, Dyspnea on exertion Gastrointestinal: Denies: Abdominal pain, Nausea, Vomiting, Diarrhea, Melena, Hematochezia Genitourinary: Denies: Dysuria, Hematuria, Frequency Musculoskeletal: Denies: Back pain, Swelling, Extremity Pain Skin: Denies: Rash, Wounds Neurological: Denies: Headache, Weakness, Numbness Physical Exam Vital Signs/Narrative: Vital Signs Temp Pulse Resp BP Pulse Ox 03/19/19 09:12 98.1 F 76 15 173/55 H 100 Inital Vital Signs reviewed: Yes General: Well nourished, Well developed, No Acute Distress Head: Normocephalic, Atraumatic Eyes: Perrl, EOMI ENT: Moist mucous membranes, No rhinorrhea Neck: Supple, Nontender Cardiovascular: Regular rate, Regular rhythm, Murmur - 2/6 systolic, - - asymmetric radial pulses -- right is 2+/4, left is 1/4 Respiratory: No distress, CTA bilaterally, Chest nontender Abdomen: Soft, Nontender, Nondistended, Normal bowel sounds Back: Nontender, Normal Inspection Extremities: Nontender, No edema. Negative for: Calf Tenderness Skin: Normal color, No rash, No Trauma Neurological: Alert, Oriented x3, Cranial nerves II-XII grossly intact, Normal Strength, Normal Sensation Psychological: Normal affect, Normal Mood Diagnostic/Tx/Re-eval Chest X-Ray - ED: 1 View, Read by ED Physician, Unchanged, No Acute Disease, Chronic Changes Laboratory Tests 03/19/19 03/19/19 Range/Units 09:15 09:15 WBC 5.5 (4.4-11.0) K/mm3 RBC 4.29 L (4.6-6.2) M/mm3 Hgb 12.4 L (13.0-16.5) g/dL Hct 37.3 L (40-54) % MCV 86.9 (80-94) fL MCH 28.9 (27.0-32.0) pg MCHC 33.2 (32-36) g/dL RDW Std Deviation 46.4 H (35.1-43.9) fl RDW Coeff of [place]u 14.6 (11.6-14.6) % Plt Count 224 (150-450) K/mm3 MPV 9.3 (6.2-12.0) fl Immature Gran % (Auto) 0.200 (0.0-0.9) % Neut % (Auto) 53.8 (47-70) % Lymph % (Auto) 36.1 (19-41) % [place] % (Auto) 4.5 (0-10) % Eos % (Auto) 4.7 (0-5) % Baso % (Auto) 0.7 (0-1) % Absolute Neuts (auto) 3.0 (2.0-7.7) X10^3/uL Absolute Lymphs (auto) 1.99 (0.83-4.51) X10^3/uL Nucleated RBC % 0 (0-5) % Sodium 141 (136-145) mmol/L Potassium 3.8 (3.5-5.1) mmol/L Chloride 107 (98-107) mmol/L Carbon Dioxide 27.0 (21.0-32.0) mmol/L Anion Gap 7 (5-15) BUN 10 (7-18) mg/dL Creatinine 0.82 (0.70-1.30) mg/dL Estim Creat Clear Calc 77.62 ml/min Est GFR (MDRD) Af Amer 118 (>60) mL/min Est GFR (MDRD) Non-Af 98 (>60) mL/min BUN/Creatinine Ratio 12.2 (10-20) RATIO Glucose 142 H (74-106) mg/dL Calcium 9.1 (8.5-10.1) mg/dL Troponin I < 0.015 (<0.045) ng/mL - Rhythm Strip Rhythm Strip: Sinus Rhythm Rate: 70 Ectopy: PVC(s) - EKG Initial EKG Interpretation: Sinus Rhythm, No Acute Injury Pattern, Non-Specific ST Changes - inferior and lateral; no STD/JENNY, - - PVC. nml axis. Prior: Unchanged Treatment: Aspirin, NTG Topical Repeat Eval: Pain Free LIZZY Risk: Age >/= 65, >/= 3RF, H/O CAD Score: 3 - Medical Decision Making EKG shows no acute injury, his troponin is negative but he just started having pain 30 minutes prior to arrival, his chest pain is barely present with topical nitroglycerin. I do not think he needs to be put on a drip and put in the ICU since he does not have any ST depressions or elevations. Concerning symptoms and significant risk, discussed with Dr. Perry who agrees with admission and he will consult. ED Disposition - Plan for ED Patient: Disposition: Acute Care Hospital [facility] Diagnosis: Chest pain, unspecified, History of coronary artery disease Referrals: Rodo Zamorano MD [Primary Care Provider] -
[2019-03-19 09:33] LABS: Absolute Lymphocyte Count 1.99 X10^3/uL (0.83-4.51); Basophil# 0.04 X10^3/uL; Basophil% 0.7 % (0-1); Eosinophil# 0.26 X10^3/uL; Eosinophils% 4.7 % (0-5); Hematocrit 37.3 % (40-54); Hemoglobin 12.4 g/dL (13.0-16.5); Lymphocyte # 1.99 X10^3/ul (4.0); Lymphocyte % 36.1 % (19-41); Mean Corp Hgb Conc 33.2 g/dL (32-36); Mean Corpuscular Hgb 28.9 pg (27.0-32.0); Mean Corpuscular Volume 86.9 fL (80-94); Mean Platelet Vol. 9.3 fl (6.2-12.0); Monocyte# 0.25 X10^3/uL; Monocyte% 4.5 % (0-10); NRBC Flagged by Analyzer 0 % (0-5); Neutrophil # 2.96 X10^3/uL (2.7-7.7); Neutrophil % 53.8 % (47-70); Platelet Count 224 K/mm3 (150-450); RBC Distribution Width CV 14.6 % (11.6-14.6); RBC Distribution Width SD 46.4 fl (35.1-43.9); Red Blood Count 4.29 M/mm3 (4.6-6.2); White Blood Count 5.5 K/mm3 (4.4-11.0)
[2019-03-19] MEDS: Aspirin 81 MG TAB.CHEW 324 MG PO (09:35)
[2019-03-19] MEDS: Nitroglycerin Oint 1 INCH PACKET TRANSDERM. (09:36)
[2019-03-19] MEDS: 0.9% Normal Saline 1,000 ML 150 ML IV (09:36)
[2019-03-19 09:47] LABS: Anion Gap 7 (5-15); BUN 10 mg/dL (7-18); BUN/Creat Ratio 12.2 RATIO (10-20); Calcium,Total 9.1 mg/dL (8.5-10.1); Chloride 107 mmol/L (98-107); Creatinine, Serum 0.82 mg/dL (0.70-1.30); EST Glomerular Filtration Rate 98 mL/min (>60); Est Glom Filt Rate - Afr Amer 118 mL/min (>60); Estimated Creatinine Clearance 77.62 ml/min; Glucose 142 mg/dL (74-106); Potassium 3.8 mmol/L (3.5-5.1); Sodium Level 141 mmol/L (136-145)
--- NOTE | 2019-03-19 11:07 | HP.PCM_ITS ---
Problem List (1) Chest pain, unspecified Status: Acute (2) History of coronary artery disease Status: Deleted (3) Nicotine abuse Status: Deleted (4) Presence of coronary angioplasty implant and graft Status: Deleted Comment: PTCA of LAD cypher stent 2004; [facility] with PTCA Promus stent to mid RCA 03/07/10; (5) Hyperlipemia Status: Chronic Qualifiers: Hyperlipidemia type: pure hypercholesterolemia Qualified Code(s): E78.00 - Pure hypercholesterolemia, unspecified; E78.0 - Pure hypercholesterolemia (6) Hypertension Status: Deleted Qualifiers: Hypertension type: essential hypertension Qualified Code(s): I10 - Essential (primary) hypertension History of Present Illness Date of Admission: 03/19/19 Chief Complaint: Chest Pain The patient is a 73 year old M with PMH as below who presents with chest pain. His chest pain started about 30 minutes prior to his arrival in the ER while at rest. He says that it substernal with no radiation and he has not noticed it getting worse with exertion. Denies any shortness of breath, but has had a little bit of lightheadedness. When he arrived to the ER his EKG was unremarkable, and not changed from baseline. Also he received a dose of nitroglycerin which did resolve his chest pain. The ER doctor spoke with his protection agent who recommended admission and would see him on admission. Past Medical History Past Medical History (Chronic Problems): Chronic Problems (Last Updated 03/19/19 @ 11:47 by Daphne Dietrich) Nicotine dependence (Chronic) Essential (primary) hypertension (Chronic) Atherosclerotic heart disease [place] coronary artery w/angina pectoris (Chronic) PCI-ОЛЬГА-LAD w/ Cypher Stent 05/2005; PCI-ОЛЬГА-Mid RCA w/ 3.0 x 28 mm Promus 03/07/2010 Bilateral carotid artery stenosis (Chronic) Left CEA 2005, Right CEA 2012 Atherosclerotic heart disease of [place] coronary artery without angina pectoris (Chronic) AAA (abdominal aortic aneurysm) (Chronic) PVD (peripheral vascular disease) (Chronic) Hyperlipemia (Chronic) Medical History: Medical History (Last Updated 03/19/19 @ 11:47 by Daphne Dietrich) Nicotine dependence (Chronic) F17.200 Essential (primary) hypertension (Chronic) I10 Atherosclerotic heart disease [place] coronary artery w/angina pectoris (Chronic) I25.119 PCI-ОЛЬГА-LAD w/ Cypher Stent 05/2005; PCI-ОЛЬГА-Mid RCA w/ 3.0 x 28 mm Promus 03/07/2010 Bilateral carotid artery stenosis (Chronic) I65.23 Left CEA 2005, Right CEA 2012 Atherosclerotic heart disease of [place] coronary artery without angina pectoris (Chronic) I25.10 AAA (abdominal aortic aneurysm) (Chronic) I71.4 PVD (peripheral vascular disease) (Chronic) I73.9 Hyperlipemia (Chronic) E78.5 Claudication I73.9 Obesity E66.9 Dyspnea R06.00 Shortness of breath R06.02 Aortic stenosis (Inactive) I35.0 CAD (coronary artery disease) (Inactive) I25.10 Allergies etodolac [Etodolac] Allergy (Verified 03/19/19 09:15) Unknown pregabalin [From Lyrica] Allergy (Verified 03/19/19 09:15) Unknown Home Medications: Ambulatory Orders Medication Instructions Recorded nitroglycerin 0.4 mg sublingual 0.4 mg SUBLINGUAL Q5M PRN #25 tab 12/09/17 tablet isosorbide mononitrate ER 30 mg 30 mg PO DAILY #90 tab 04/16/18 tablet,extended release 24 hr clopidogrel 75 mg tablet 75 mg PO DAILY #90 tab 05/25/18 atorvastatin 80 mg tablet 80 mg PO QHS #90 tab 10/12/18 esomeprazole magnesium 40 mg 40 mg PO DAILY #90 cap 12/14/18 capsule,delayed release miscellaneous medical supply misc See Rx Instructions .ROUTE 01/26/19 .MEDSUPPLY #1 ea amlodipine 10 mg tablet 10 mg PO DAILY #90 tab 02/22/19 benazepril 40 mg tablet 40 mg PO DAILY #90 tab 02/22/19 Handicap placard #1 ea 03/05/19 Surgical History: Surgical History (Last Updated 03/19/19 @ 11:47 by Daphne Dietrich) History of coronary artery stent placement (Resolved) Onset Date: 03/07/10 Z95.5 PCI-ОЛЬГА-LAD w/ Cypher Stent 05/2005; PCI-ОЛЬГА-Mid RCA w/ 3.0 x 28 mm Promus 03/07/2010 History of left-sided carotid endarterectomy Onset Date: 2005 Z98.890 History of right-sided carotid endarterectomy Onset Date: 2012 Z98.890 History of appendectomy Z90.49 History of bowel resection Z90.49 History of shoulder surgery Z98.890 bilateral. Surgical History: angioplasty, appendectomy, - - Catheterization and stenting, back surgery, shoulder surgery, bilateral carotid endarterectomy, bowel resection Psychiatric History: No pertinent psych hx Lives: Spouse/ Significant Other Smoking Status: Current every day smoker - 10 cig/day currently Tobacco Use: Cigarettes Alcohol: None Drugs: None - *Family History Sibling Family History: Family History (Last Reviewed 02/22/19 @ 13:38 by JAMAR Gonzalez) Brother Hypertension Sister Hypertension History Items: Hypertension Maternal Family History: Family History (Last Reviewed 02/22/19 @ 13:38 by JAMAR Gonzalez) Brother Hypertension Sister Hypertension History Items: No pertinent history Paternal Family History: Family History (Last Reviewed 02/22/19 @ 13:38 by JAMAR Gonzalez) Brother Hypertension Sister Hypertension History Items: No pertinent history Review of Systems Constitutional: Denies: Chills, Fever, Weight Change HEENT: Denies: Head Aches, Sinus Congestion, Sinus Drainage Cardiovascular: Reports: Chest Pain. Denies: Palpitations Respiratory: Denies: Cough, Shortness of Breath, Shortness of breath at rest, Sputum production Gastrointestinal: Denies: Abdominal Pain, Nausea, Vomiting Genitourinary: Denies: Dysuria Musculoskeletal: Denies: Joint Pain, Joint Tenderness Skin: Denies: Rash, Wounds Neurological: Denies: Numbness, Tingling, Focal weakness Psychiatric: Denies: Anxiety, Depression Hematologic/ Lymphatic: Denies: Easy Bruising, Easy Bleeding VTE Information - Inpt Only VTE Present on Admission: No Patient Problems: Active and Suspected Problems (Last Updated 03/19/19 @ 11:47 by Daphne Dietrich) Chest pain, unspecified (Acute) - Physical Exam General: Alert, Oriented x3, Cooperative, No apparent distress HEENT: Atraumatic, PERRLA, EOMI, Normocephalic Oral: Moist Mucosa Neck: Supple, No JVD Lungs: Clear to auscultation, Normal air movement, No rhonchi, No wheeze, No rales Cardiovascular: Regular rate, Regular Rhythm, Normal S1, Normal S2, No murmurs Abdomen: Soft, Non Tender, Non-Distended, No Hepato-splenomegaly Extremities: No edema, Capillary Refill Less than 3 Seconds Skin: No rashes, No breakdown Neurological: Neuro grossly intact, Sensory exam intact to light touch and pain Psych/Mental Status: Normal Affect, Appropriate Vital Signs Temp Pulse Resp BP Pulse Ox 98.1 F 63 13 161/64 H 98 03/19/19 09:12 03/19/19 10:34 03/19/19 10:34 03/19/19 10:34 03/19/19 10:34 Oxygen Delivery Method Room Air Weight: 225 lb 1.471 oz Body Mass Index (BMI) 34.2 Laboratory Tests Past 24 Hrs 03/19/19 03/19/19 09:15 09:15 WBC 5.5 RBC 4.29 L Hgb 12.4 L Hct 37.3 L MCV 86.9 MCH 28.9 MCHC 33.2 RDW Std Deviation 46.4 H RDW Coeff of [place] 14.6 Plt Count 224 MPV 9.3 Immature Gran % (Auto) 0.200 Neut % (Auto) 53.8 Lymph % (Auto) 36.1 [place] % (Auto) 4.5 Eos % (Auto) 4.7 Baso % (Auto) 0.7 Absolute Neuts (auto) 3.0 Absolute Lymphs (auto) 1.99 Nucleated RBC % 0 Sodium 141 Potassium 3.8 Chloride 107 Carbon Dioxide 27.0 Anion Gap 7 BUN 10 Creatinine 0.82 Estim Creat Clear Calc 77.62 Est GFR (MDRD) Af Amer 118 Est GFR (MDRD) Non-Af 98 BUN/Creatinine Ratio 12.2 Glucose 142 H Calcium 9.1 Troponin I < 0.015 Assessment/Plan All Active Problems (Last Updated 03/19/19 @ 11:47 by Daphne Dietrich) History of coronary artery stent placement (Resolved 03/07/10) Chest pain, unspecified (Acute) 1. Chest pain/CAD status post stent/HTN/HLD/tobacco abuse/obesity -The initial troponin was negative, will proceed with a cardiac cath per cardi ology -His systolic blood pressures little bit elevated today in the 170's, will monitor and continue with his home blood pressure medication -Continue with aspirin and Plavix -Continue with Lipitor -Advised cessation on smoking -Discussed lifestyle modifications for weight loss 2. GERD -Stable -C/w with PPI DVT: Lovenox Code Visit OBSV E&M: [id number] Initial observation care L2
[2019-03-19] MEDS: 0.9% Normal Saline 1,000 ML 15 ML IV (12:12)
--- NOTE | 2019-03-19 13:16 | CON.PCM_ITS ---
Reason for Consult Date of Consultation: 03/19/19 History of Present Illness: JEROME KRUGER, is a 73 M who presents to the office today for a cardiovascular outpatient follow-up. His history of coronary artery disease with angioplasty and stenting to his LAD in May 2005 and to his mid RCA and February 2010. He also has history of peripheral vascular disease with bilateral carotid endarterectomies and abdominal aortic aneurysm, hypertension, hyperlipidemia, sleep apnea. He presented here to the emergency room with chest discomfort he says that it was a heaviness and he took a sublingual nitroglycerin with improvement. EKG did not demonstrate any significant abnormalities he was admitted for further evaluation and management. He was recently seen in the office and had previously not had any recent chest discomfort. He had noted some shortness of breath with exertion. He continues unfortunately to use tobacco products. Past Medical History Allergies/Adverse Reactions: Allergies etodolac [Etodolac] Allergy (Verified 03/19/19 09:15) Unknown pregabalin [From Lyrica] Allergy (Verified 03/19/19 09:15) Unknown Home Medications: Ambulatory Orders Medication Instructions Recorded nitroglycerin 0.4 mg sublingual 0.4 mg SUBLINGUAL Q5M PRN #25 tab 12/09/17 tablet isosorbide mononitrate ER 30 mg 30 mg PO DAILY #90 tab 04/16/18 tablet,extended release 24 hr clopidogrel 75 mg tablet 75 mg PO DAILY #90 tab 05/25/18 atorvastatin 80 mg tablet 80 mg PO QHS #90 tab 10/12/18 esomeprazole magnesium 40 mg 40 mg PO DAILY #90 cap 12/14/18 capsule,delayed release miscellaneous medical supply misc See Rx Instructions .ROUTE 01/26/19 .MEDSUPPLY #1 ea amlodipine 10 mg tablet 10 mg PO DAILY #90 tab 02/22/19 benazepril 40 mg tablet 40 mg PO DAILY #90 tab 02/22/19 Handicap placard #1 ea 03/05/19 Past Medical History (Chronic Problems): Chronic Problems (Last Updated 03/19/19 @ 11:47 by Daphne Dietrich) Nicotine dependence (Chronic) Essential (primary) hypertension (Chronic) Atherosclerotic heart disease [place] coronary artery w/angina pectoris (Chronic) PCI-ОЛЬГА-LAD w/ Cypher Stent 05/2005; PCI-ОЛЬГА-Mid RCA w/ 3.0 x 28 mm Promus 03/07/2010 Bilateral carotid artery stenosis (Chronic) Left CEA 2005, Right CEA 2012 Atherosclerotic heart disease of [place] coronary artery without angina pectoris (Chronic) AAA (abdominal aortic aneurysm) (Chronic) PVD (peripheral vascular disease) (Chronic) Hyperlipemia (Chronic) Surgical History: angioplasty, appendectomy, - - Catheterization and stenting, back surgery, shoulder surgery, bilateral carotid endarterectomy, bowel resection Psychiatric History: No pertinent psych hx - *Family History Sibling Family History: Family History (Last Reviewed 02/22/19 @ 13:38 by JAMAR Gonzalez) Brother Hypertension Sister Hypertension History Items: Hypertension Maternal Family History: Family History (Last Reviewed 02/22/19 @ 13:38 by JAMAR Gonzalez) Brother Hypertension Sister Hypertension History Items: No pertinent history Paternal Family History: Family History (Last Reviewed 02/22/19 @ 13:38 by JAMAR Gonzalez) Brother Hypertension Sister Hypertension History Items: No pertinent history Lives: Spouse/ Significant Other Smoking Status: Current every day smoker - 10 cig/day currently Tobacco Use: Cigarettes Alcohol: None Drugs: None Review of Systems - Review of Systems General: Denies: Fever, Night Sweats, Fatigue HEENT: Denies: Vision Change Cardiovascular: Reports: Chest Discomfort, Shortness of Breath, Shortness of Breath at Rest, Shortness of Breath with Exertion. Denies: Orthopnea, PND, Peripheral Edema, Palpitations, Lightheadedness, Dizziness, Near Syncope, Syncope Respiratory: Denies: Cough, Sputum Production, Hemoptysis Gastrointestinal: Denies: Hematemesis, Hematochezia, Melena Genitourinary: Denies: Dysuria, Hematuria Skin: Denies: Rash Neurological: Reports: Dizziness Psychiatric: Denies: Anxiety Endocrine: Denies: Unexplained Weight Loss Subjectve: Pleasant gentleman in no apparent distress Objective: Vital Signs Temp Pulse Resp BP Pulse Ox 97.7 F L 67 16 141/71 H 94 03/19/19 11:51 03/19/19 11:51 03/19/19 11:51 03/19/19 11:51 03/19/19 11:51 Oxygen Delivery Method Room Air Weight: 217 lb 6.012 oz Body Mass Index (BMI) 33.0 Intake and Output for Last 24 Hours 03/17/19 03/18/19 03/19/19 23:59 23:59 23:59 Intake Total 390 / 390 Balance 390 / 390 General: Awake, Alert, Oriented x 3 HEENT: PERRL, EOMI, Sclera Non Icteric Neck: Supple, Good ROM, No Lymph Node Enlargement Lungs: Clear to auscultation Cardiovascular: Regular Rhythm, Normal S1, Normal S2, No Murmurs, No Rubs, No Gallops Vascular: No Carotid Bruits, Normal Femoral Pulses, Normal Radial Pulses, Normal Dorsalis Pedal Pulse, Normal Posterior Tibial Pulses Abdomen: Bowel Sounds Present, Soft, Non Tender, No HSM, No Organomegaly Extremities: No Cyanosis, No Clubbing, No edema Musculoskeletal: No Erythema Skin: No Rashes Lymphatic: No Lymph Node Enlargement Neurological: No Focal Motor or Sensory Deficit Psych/Mental Status: Appropriate 03/19/19 09:15: WBC 5.5, RBC 4.29 L, Hgb 12.4 L, Hct 37.3 L, MCV 86.9, MCH 28.9, MCHC 33.2, Plt Count 224, MPV 9.3, Immature Gran % (Auto) 0.200, Neut % (Auto) 53.8, Lymph % (Auto) 36.1, Tate % (Auto) 4.5, Eos % (Auto) 4.7, Baso % (Auto) 0.7, Absolute Neuts (auto) 3.0, Nucleated RBC % 0 03/19/19 09:15: Sodium 141, Potassium 3.8, Chloride 107, Carbon Dioxide 27.0, Anion Gap 7, BUN 10, Creatinine 0.82, Est GFR (MDRD) Af Amer 118, Est GFR (MDRD) Non-Af 98, BUN/Creatinine Ratio 12.2, Glucose 142 H, Calcium 9.1, Troponin I < 0.015 Rhythm: EKG: ECHO: Stress Test: Cardiac Cath: PCI: CT Surgery: Holter monitor: EPS: PPM: CXR: Chest CT Scan: Assessment/Plan 1. Chest discomfort * The above is suggestive of new onset angina. He does have significant previous coronary artery disease. My recommendation at this time would be to bypass any stress testing and proceed with a cardiac catheterization. The risk benefits and alternatives have been explained to him he understands and agrees to proceed. * 2. Hypertension * Pressure remains elevated. My recommendation would be to aggressively manage his blood pressure medications as this may improve some of his shortness of breath. * Addendum: Cardiac catheterization. Left main coronary artery is short with no high-grade stenosis. Left anterior descending artery has previously placed stents which are patent with no high-grade stenosis. Left circumflex artery with mild diffuse disease. Dominant right coronary artery which is patent with no high-grade stenosis. Left ventriculogram. Left ventriculogram demonstrates preserved left ventricular systolic function. Based on the above angiographic findings it does not appear that the patient has any significant obstructive coronary disease and my recommendation would be to aggressively treat his blood pressure, discontinue tobacco use. Thank you for allowing me to participate in the care of your patient. Please don't hesitate to call if any issues arise
--- NOTE | 2019-03-19 14:00 | DCINST_ITS ---
- Discharge Diagnoses Current Active Problems: Current Active and Chronic Problems (Last Updated 03/19/19 @ 11:47 by Daphne Dietrich) Nicotine dependence (Chronic) Chest pain, unspecified (Acute) You will use the following diet at home:: Cardiac Your food should be the consistency of: Regular Your liquids should be the consistency of: Regular/Thin Discharge Activity: Return to Normal Activity Call your doctor if your incision/area has: Increased Pain/ Swelling, Increased Redness, Foul Smelling Discharge Call your doctor if you observe: Fever of 101 or Higher, Shortness of breath, Dizziness, Fainting spells, Swelling in the ankles, Chest pain, Increased palpitations (irregular heartbeat) Allergies/Adverse Reactions: Allergies etodolac [Etodolac] Allergy (Verified 03/19/19 09:15) Unknown pregabalin [From Lyrica] Allergy (Verified 03/19/19 09:15) Unknown Medications to take at Discharge nitroglycerin 0.4 mg sublingual tablet 0.4 mg SUBLINGUAL Q5M PRN #25 tab 12/09/17 clopidogrel 75 mg tablet 75 mg PO DAILY #90 tab 05/25/18 atorvastatin 80 mg tablet 80 mg PO QHS #90 tab 10/12/18 esomeprazole magnesium 40 mg capsule,delayed release 40 mg PO DAILY #90 cap 12/14/18 miscellaneous medical supply misc See Rx Instructions .ROUTE .MEDSUPPLY #1 ea 01/26/19 amlodipine 10 mg tablet 10 mg PO DAILY #90 tab 02/22/19 benazepril 40 mg tablet 40 mg PO DAILY #90 tab 02/22/19 Handicap placard #1 ea 03/05/19 Isosorbide Mononitrate [Isosorbide Mononitrate ER] 60 mg PO DAILY #60 tab.er.24h 03/19/19 The following prescriptions were given: Isosorbide Mononitrate [Isosorbide Mononitrate ER] 60 mg PO DAILY #60 tab.er.24h Transmission Status: Pending to [facility] Primary Care Physician: Rodo Zamorano MD [Primary Care Provider] - Please follow up with your Primary Care Physician in: 3-5 days Test Results: Test results from this visit will be discussed in further detail at your follow- up appointment, if applicable. Please Follow Up With: Shahram Perry MD When: 2-4 weeks
--- NOTE | 2019-03-19 14:02 | PCM.DC.SUM ---
Discharge Date and Diagnosis - Problem List Patient Problems: Active and Suspected Problems (Last Updated 03/19/19 @ 11:47 by Daphne Dietrich) Chest pain, unspecified (Acute) Date of Admission: 03/19/19 Date of Discharge: 03/19/19 - Primary Discharge Diagnosis Active and Suspected Problems (Last Updated 03/19/19 @ 11:47 by Daphne Dietrich) Chest pain, unspecified (Acute) - Secondary Discharge Diagnosis Chronic Problems (Last Updated 03/19/19 @ 11:47 by Daphne Dietrich) Nicotine dependence (Chronic) Essential (primary) hypertension (Chronic) Atherosclerotic heart disease [place] coronary artery w/angina pectoris (Chronic) PCI-ОЛЬГА-LAD w/ Cypher Stent 05/2005; PCI-ОЛЬГА-Mid RCA w/ 3.0 x 28 mm Promus 03/07/2010 Bilateral carotid artery stenosis (Chronic) Left CEA 2005, Right CEA 2012 Atherosclerotic heart disease of [place] coronary artery without angina pectoris (Chronic) AAA (abdominal aortic aneurysm) (Chronic) PVD (peripheral vascular disease) (Chronic) Hyperlipemia (Chronic) Hospital Course and Treatment Imaging Results: CXR: IMPRESSION: No acute intrathoracic process. No evidence of pneumonia or CHF. Consults: Cardiology Operations: None Procedures: Cardiac catheterization - Cardiac catheterization. Left main coronary artery is short with no high-grade stenosis. Left anterior descending artery has previously placed stents which are patent with no high-grade stenosis. Left circumflex artery with mild diffuse disease. Dominant right coronary artery which is patent with no high-grade stenosis. Left ventriculogram. Left ventriculogram demonstrates preserved left ventricular systolic function. Based on the above angiographic findings it does not appear that the patient has any significant obstructive coronary disease and my recommendation would be to aggressively treat his blood pressure, discontinue tobacco use. Summary of Care Provided: Per HPI: The patient is a 73 year old M with PMH as below who presents with chest pain. His chest pain started about 30 minutes prior to his arrival in the ER while at rest. He says that it substernal with no radiation and he has not noticed it getting worse with exertion. Denies any shortness of breath, but has had a little bit of lightheadedness. When he arrived to the ER his EKG was unremarkable, and not changed from baseline. Also he received a dose of nitroglycerin which did resolve his chest pain. The ER doctor spoke with his lead software development engineer who recommended admission and would see him on admission. Hospital Course: 1. Chest pain/CAD status post stent/HTN/HLD/tobacco abuse/[id number]-old male who presented today with chest pain with a history of coronary artery disease as well as bilateral carotid stenosis. Cardiology was consulted in the ER and they were able to take patient for cardiac cath today secondary to his peripheral vascular disease history as well as he does not typically have chest pain. Cardiac cath was essentially normal and they felt that this was likely secondary to blood pressure issues. He was discharged with an increase in his isosorbide mononitrate from 30 mg daily to 60 mg daily. He will need to follow-up with his primary care physician in 3 to 5 days as well as cardiology and 2 to 4 weeks. He was discussed with him that his tobacco abuse is leading to the continued issues with his cardiac function, he states he only smokes 10 cigarettes a day however it was advised that he quit completely. Also has a BMI of 33 and lifestyle modifications were addressed for weight loss. This was discussed with the family and the patient who both expressed understanding and agreement with the plan. 2. His other medical diagnoses were evaluated and his home medications were continued where appropriate Patient Problems: Active and Suspected Problems (Last Updated 03/19/19 @ 11:47 by Daphne Dietrich) Chest pain, unspecified (Acute) - Physical Exam Vital Signs Temp Pulse Resp BP Pulse Ox 97.7 F L 70 14 147/64 H 94 03/19/19 13:45 03/19/19 13:58 03/19/19 13:58 03/19/19 13:58 03/19/19 13:58 Oxygen Delivery Method Room Air Weight: 217 lb 6.012 oz Body Mass Index (BMI) 33.0 Intake and Output for Last 24 Hours 03/17/19 03/18/19 03/19/19 23:59 23:59 23:59 Intake Total 413.25 / 413.25 Balance 413.25 / 413.25 Laboratory Tests Past 24 Hrs 03/19/19 03/19/19 09:15 09:15 WBC 5.5 RBC 4.29 L Hgb 12.4 L Hct 37.3 L MCV 86.9 MCH 28.9 MCHC 33.2 RDW Std Deviation 46.4 H RDW Coeff of [place] 14.6 Plt Count 224 MPV 9.3 Immature Gran % (Auto) 0.200 Neut % (Auto) 53.8 Lymph % (Auto) 36.1 Ross % (Auto) 4.5 Eos % (Auto) 4.7 Baso % (Auto) 0.7 Absolute Neuts (auto) 3.0 Absolute Lymphs (auto) 1.99 Nucleated RBC % 0 Sodium 141 Potassium 3.8 Chloride 107 Carbon Dioxide 27.0 Anion Gap 7 BUN 10 Creatinine 0.82 Estim Creat Clear Calc 77.62 Est GFR (MDRD) Af Amer 118 Est GFR (MDRD) Non-Af 98 BUN/Creatinine Ratio 12.2 Glucose 142 H Calcium 9.1 Troponin I < 0.015 Discharge Activity: Return to Normal Activity Call your doctor if your incision/area has: Increased Pain/ Swelling, Increased Redness, Foul Smelling Discharge Call your doctor if you observe: Fever of 101 or Higher, Shortness of breath, Dizziness, Fainting spells, Swelling in the ankles, Chest pain, Increased palpitations (irregular heartbeat) Home Medications: Medications to take at Discharge nitroglycerin 0.4 mg sublingual tablet 0.4 mg SUBLINGUAL Q5M PRN #25 tab 12/09/17 clopidogrel 75 mg tablet 75 mg PO DAILY #90 tab 05/25/18 atorvastatin 80 mg tablet 80 mg PO QHS #90 tab 10/12/18 esomeprazole magnesium 40 mg capsule,delayed release 40 mg PO DAILY #90 cap 12/14/18 miscellaneous medical supply misc See Rx Instructions .ROUTE .MEDSUPPLY #1 ea 01/26/19 amlodipine 10 mg tablet 10 mg PO DAILY #90 tab 02/22/19 benazepril 40 mg tablet 40 mg PO DAILY #90 tab 02/22/19 Handicap placard #1 ea 03/05/19 Isosorbide Mononitrate [Isosorbide Mononitrate ER] 60 mg PO DAILY #60 tab.er.24h 03/19/19 Following Prescrptions Were Given to Patient: Isosorbide Mononitrate [Isosorbide Mononitrate ER] 60 mg PO DAILY #60 tab.er.24h Transmission Status: Pending to [facility] Primary Care Physician: Rodo Zamorano MD [Primary Care Provider] - Please follow up with your Primary Care Physician in: 3-5 days Please Follow Up With: [place], MD When: 2-4 weeks Disposition: Home Minutes spent on discharge:: 35 Patient Condition:: Stable Medical Necessity - Tobacco Use Smoking Status: Current every day smoker Tobacco Use: Cigarettes Meaningful Use Info Meaningful Use Diagnoses (Choose all that apply): None applicable Code Visit OBSV E&M: 25178 Observ/hosp same date L2
--- NOTE | 2019-03-23 17:04 | CL.D_ITS ---
Patient Name: JEROME KRUGER Study Date: 03/19/2019 Performing: Shahram Perry MD Ht: 68 inches 173 cm : 1945 Wt: 218.5 lbs 99 kg Age: 73 Gender: male BSA: 2.12 PROCEDURE(S) PERFORMED [id number] CLINICAL PROFILE AND INDICATIONS Heart Failure: None CONCLUSIONS Mild non obstructive CAD, with calcification RECOMMENDATIONS Medical therapy DESCRIPTION OF PROCEDURE The patient arrived to the procedure lab. The risks and benefits of the procedure as well as a full d escription of our services here and current unavailability of surgical backup were fully explained to the patient and/or their significant other prior to the catheterization. The Timeout was completed, verifying the correct patient and procedure. The patient's procedural site was prepped and draped in the usual fashion. Local anesthetic was given subcutaneously to right radial region with Lidocaine 2% . Using a modified Seldinger technique, arterial access was obtained via the right radial artery, a 6 Fr sheath was inserted. Right Coronary Artery selective angiography was then performed in multiple v iews using a 5 Fr. 4.0 Lynch catheter. Left Coronary Artery selective angiography was performed in mu ltiple views using a 5 Fr. 4.0 Lynch catheter. Left Ventriculography was performed in [place]UR[place] projection using a 5 Fr. Pigtail catheter. LV to AO pullback pressures were then recorded.The arterial sheath was pulled and a TR Band was applied for hemostasis. The arterial sheath was pulled a nd a TR Band was applied for hemostasis. 14cc air CORONARY ANGIOGRAPHY DOMINANCE: Right Dominant LEFT HEART ASSESSMENT Left Ventricular Ejection Fraction: by LV Gram 60 % Normal LV wall motion LEFT MAIN: Mild calcification LEFT ANTERIOR DESCENDING ARTERY: Moderate calcification, Moderate luminal irregularities up to 50% CIRCUMFLEX ARTERY: Mild luminal irregularities RIGHT CORONARY ARTERY: Moderate calcification Mild luminal irregularities COMPLICATIONS No Complications PROCEDURE MEDICATIONS Versed 1 mg IV Fentanyl 50 mcg IV Versed 1 mg IV Versed 1 mg IV Oxygen: 2 L/min via nasal cannula Heparin given IA 03/19/2019 12:53:34 Verapamil 2.5mg, Ntg 100mcgs, 2000 units of Heparin given IA 03/19/2019 12:53:34 SUMMARY OF HEMODYNAMIC DATA Time AIR REST ECG 12:28:05 AO 123/53 (78) SA 12:54:40 LV 164/-8, 11 13:06:39 LV 165/-7, 12 13:06:45 LV 167/7, 15 13:07:15 LV 168/8, 16 13:07:22 LVp 168/7, 14 13:07:28 AOp 148/49 (86) 13:07:33 Signed By Shahram Perry MD On 03/23/2019 17:03:38 Shahram Perry MD
== END 2019-03-19 16:39 | disposition home or self-care (01) ==
LOC: ED 10:15 → PCU 11:20
PROVIDERS: Admitting Provider Family Medicine; Emergency Provider Emergency Medicine; Family Provider Family Medicine; PCP Family Medicine; Visit Provider Family Medicine
DX: R07.89 Other chest pain (principal); F17.210 Nicotine dependence, cigarettes, uncomplicated; R06.09 Other forms of dyspnea; Z79.02 Long term (current) use of antithrombotics/antiplatelets; Z79.899 Other long term (current) drug therapy; R42 Dizziness and giddiness; Z95.5 Presence of coronary angioplasty implant and graft; I25.10 Atherosclerotic heart disease of native coronary artery without angina pectoris; I10 Essential (primary) hypertension; I73.9 Peripheral vascular disease, unspecified; E78.5 Hyperlipidemia, unspecified; E66.9 Obesity, unspecified; Z68.33 Body mass index [BMI] 33.0-33.9, adult; Z71.3 Dietary counseling and surveillance; K21.9 Gastro-esophageal reflux disease without esophagitis
CPT/HCPCS: 71045; 80048; 84484; 85025; 93005; 93458; 96360; 96361; 99152; 99153; 99218; 99285; 99406; J7030; Q9967; A4216; C1769; C1894; G0378

== ENCOUNTER 2019-09-25 18:16 | Observation (INO) | payer MEDICARE, BC, SELFPAY ==
[2019-06-17 13:01] VITALS: BMI 33.7
[2019-09-25] VITALS (7 sets, daily range): BP systolic 147–184; BP diastolic 71–73; PULSE 68–91; RESP 16–18; TEMP 36.2–36.5; O2SAT 99–100; BMI 34.2; BMI 33.0
--- NOTE | 2019-09-25 18:38 | EKG12_ITS ---
Test Reason : CP ADMIT Blood Pressure : / mmHG Vent. Rate : 071 BPM Atrial Rate : 071 BPM P-R Int : 164 ms QRS Dur : 096 ms QT Int : 412 ms P-R-T Axes : 050 039 -18 degrees QTc Int : 447 ms Normal sinus rhythm Nonspecific ST & T wave abnormality Abnormal ECG Confirmed by IAIN NESBITT, ALEJANDRO ([id number]), dryerman/woman CLAUDIA MCCARTHY ([id number]) on 09/29/2019 2:00:11 PM Referred By: DR ARCEO Confirmed By:ALEJANDRO TIMMONS MD
--- NOTE | 2019-09-25 18:40 | RAD_ITS ---
STUDY: X-RAY CHEST REASON FOR EXAM: Male, 74 years old. CHEST PAIN STARTING TODAY TECHNIQUE: Frontal view of the chest COMPARISON: 19 March 2019 FINDINGS: The lungs are clear and expanded. There is no demonstrated pleural abnormality. Normal size heart. Normal mediastinum and oren. Normal visualized pulmonary arteries. Normal visualized aortic arch and descending thoracic aorta. Normal visualized thoracic spine. Normal visualized ribs, clavicles, and shoulders. There is no demonstrated abnormality of the visualized soft tissue structures of the upper abdomen. RAD/Chest 1 View (Portable) IMPRESSION: Normal x-ray examination of the chest. Electronically Signed: Danna Odell, at 18:52 EST Tel , Service support ,
[2019-09-25 18:44] LABS: Absolute Lymphocyte Count 2.91 X10^3/uL (0.83-4.51); Absolute Neutrophil Count 3.1 X10^3/uL (2.0-7.7); Basophil# 0.04 X10^3/uL; Basophil% 0.6 % (0-1); Eosinophil# 0.29 X10^3/uL; Eosinophils% 4.3 % (0-5); Hematocrit 36.3 % (40-54); Hemoglobin 11.9 g/dL (13.0-16.5); Lymphocyte # 2.91 X10^3/ul (4.0); Lymphocyte % 42.8 % (19-41); Mean Corp Hgb Conc 32.8 g/dL (32-36); Mean Corpuscular Hgb 28.5 pg (27.0-32.0); Mean Corpuscular Volume 86.8 fL (80-94); Mean Platelet Vol. 9.5 fl (6.2-12.0); Monocyte% 5.9 % (0-10); NRBC Flagged by Analyzer 0 % (0-5); Neutrophil # 3.14 X10^3/uL (2.7-7.7); Neutrophil % 46.1 % (47-70); Platelet Count 212 K/mm3 (150-450); RBC Distribution Width CV 14.3 % (11.6-14.6); RBC Distribution Width SD 45.9 fl (35.1-43.9); Red Blood Count 4.18 M/mm3 (4.6-6.2); White Blood Count 6.8 K/mm3 (4.4-11.0)
[2019-09-25] MEDS: Aspirin 81 MG TAB.CHEW 162 MG PO (18:48)
[2019-09-25] MEDS: 0.9% Normal Saline 1,000 ML 150 ML IV (18:48)
[2019-09-25] MEDS: Nitroglycerin Oint 1 INCH PACKET TRANSDERM. (18:48)
[2019-09-25 18:58] LABS: Anion Gap 5 (5-15); BUN 11 mg/dL (7-18); Chloride 110 mmol/L (98-107); Creatinine, Serum 0.92 mg/dL (0.70-1.30); EST Glomerular Filtration Rate 86 mL/min (>60); Est Glom Filt Rate - Afr Amer 104 mL/min (>60); Estimated Creatinine Clearance 68.15 ml/min; Glucose 107 mg/dL (74-106); Potassium 3.1 mmol/L (3.5-5.1); Sodium Level 141 mmol/L (136-145)
[2019-09-25 19:06] LABS: Partial Thromboplast Time 30.7 Seconds (24.1-36.2)
--- NOTE | 2019-09-25 19:07 | ED.VIS.CHEST ---
History of Present Illness Chief Complaint: Chest Pain Informant: Patient, Spouse/S.O. Onset: Today - about 0.5 hrs TUBE F[employer]ER Activity at onset: Rest - sitting Timing: Continuous Quality: Dull - nonpleuritic Location: Substernal Current Severity: Gone Maximum Severity: Severe Worsened By: Nothing. Not Worsened By: Movement of Arm, Movement of Torso, Breathing Relieved By: NTG - x2 Associated Symptoms: Dyspnea. Negative for: Nausea, Diaphoresis, Cough, Fever, Lightheadedness, Palpitations Narrative: Patient states he did some errands and walking around lightly earlier today and had no issues but just around 30 minutes prior to arrival had dull chest discomfort that resolved at home with 2 nitroglycerin. He has a history of cardiac stents, the last of which was placed long ago, states he is compliant with his aspirin and Plavix every day, but still smokes. He states he is able to make a pack of cigarettes last around 3 days. - Past Medical History (1) AAA (abdominal aortic aneurysm) Status: Chronic (2) Atherosclerotic heart disease of [place] coronary artery without angina pectoris Status: Chronic (3) Bilateral carotid artery stenosis Status: Chronic Comment: Left CEA 2005, Right CEA 2012 (4) Essential (primary) hypertension Status: Chronic (5) Hyperlipemia Status: Chronic (6) Nicotine dependence Status: Chronic (7) PVD (peripheral vascular disease) Status: Chronic (8) History of coronary artery stent placement Status: Resolved Comment: PCI-ОЛЬГА-LAD w/ Cypher Stent 05/2005; PCI-ОЛЬГА-Mid RCA w/ 3.0 x 28 mm Promus 03/07/2010 Past Medical History - Allergies and Home Meds Allergies/Adverse Reactions: Allergies etodolac [Etodolac] Allergy (Verified 09/25/19 18:17) Unknown pregabalin [From Lyrica] Allergy (Verified 09/25/19 18:17) Unknown Primary Care Physician: Rodo Zamorano MD [Primary Care Provider] - Doctors: Dr. Perry Surgical History: angioplasty, appendectomy, - - Catheterization and stenting, back surgery, shoulder surgery, bilateral carotid endarterectomy, bowel resection Lives: Spouse/ Significant Other Smoking Status: Heavy Smoker (>10/day) - Family History Sibling Family History: Family History (Last Reviewed 02/22/19 @ 13:38 by JAMAR Gonzalez) Brother Hypertension Sister Hypertension Family History: Reports: Hypertension Maternal Family History: Family History (Last Reviewed 02/22/19 @ 13:38 by JAMAR Gonzalez) Brother Hypertension Sister Hypertension Family History: Reports: No pertinent history Paternal Family History: Family History (Last Reviewed 02/22/19 @ 13:38 by JAMAR Gonzalez) Brother Hypertension Sister Hypertension Family History: Reports: No pertinent history Review of Systems General: Denies: Chills, Fever, Sweats Eyes: Denies: Visual changes - bilaterally, Diplopia ENT: Denies: Rhinorrhea, Sore throat Cardiovascular: Reports: Chest pain. Denies: Palpitations Respiratory: Reports: Dyspnea - gone now. Denies: Cough, Dyspnea on exertion Gastrointestinal: Denies: Abdominal pain, Nausea, Vomiting, Diarrhea, Melena, Hematochezia Genitourinary: Denies: Dysuria, Hematuria, Frequency Musculoskeletal: Reports: Swelling - chronic BLE, symmetric. Denies: Neck pain, Back pain, Extremity Pain Skin: Denies: Rash, Wounds Neurological: Denies: Headache, Weakness, Numbness Physical Exam Vital Signs/Narrative: Vital Signs Temp Pulse Resp BP Pulse Ox 09/25/19 18:48 79 174/72 H 09/25/19 18:41 100 09/25/19 18:18 97.1 F L 91 16 184/71 H 99 Inital Vital Signs reviewed: Yes General: Well nourished, Well developed, Obese, No Acute Distress Head: Normocephalic, Atraumatic Eyes: Perrl, EOMI ENT: Moist mucous membranes, No rhinorrhea Neck: Supple, Nontender, No lymphadenopathy, No JVD Cardiovascular: Regular rate, Regular rhythm, Murmur - systolic 2/6 Respiratory: No distress, CTA bilaterally, Chest nontender Abdomen: Soft, Nontender, Nondistended, Normal bowel sounds. Negative for: Pulsatile mass Back: Nontender, Normal Inspection Extremities: Nontender, Edema - trace to both mid-shins, symmetric. Negative for: Calf Tenderness Skin: Normal color, No rash Neurological: Alert, Oriented x3, Cranial nerves II-XII grossly intact, Normal Strength, Normal Sensation Psychological: Normal affect, Normal Mood Diagnostic/Tx/Re-eval Impressions Chest X-Ray 09/25/19 18:40 IMPRESSION: Normal x-ray examination of the chest. Electronically Signed: Danna Odell, at 18:52 EST Tel , Service support , 09/25/19 18:38 Chest 1 View (Portable) [RAD] Stat Laboratory Results 09/25/19 09/25/19 09/25/19 18:25 18:25 18:25 WBC 6.8 RBC 4.18 L Hgb 11.9 L Hct 36.3 L MCV 86.8 MCH 28.5 MCHC 32.8 RDW Std Deviation 45.9 H RDW Coeff of [place] 14.3 Plt Count 212 MPV 9.5 Immature Gran % (Auto) 0.300 Neut % (Auto) 46.1 L Lymph % (Auto) 42.8 H Terry % (Auto) 5.9 Eos % (Auto) 4.3 Baso % (Auto) 0.6 Absolute Neuts (auto) 3.1 Absolute Lymphs (auto) 2.91 Nucleated RBC % 0 APTT 30.7 Sodium 141 Potassium 3.1 L Chloride 110 H Carbon Dioxide 26.0 Anion Gap 5 BUN 11 Creatinine 0.92 Estim Creat Clear Calc 68.15 Est GFR (MDRD) Af Amer 104 Est GFR (MDRD) Non-Af 86 BUN/Creatinine Ratio 12.0 Glucose 107 H Calcium 9.0 Troponin I < 0.015 - Rhythm Strip Rhythm Strip: Sinus Rhythm Rate: 88 Ectopy: None - EKG Initial EKG Interpretation: Sinus Rhythm, Non-Specific ST Changes - w/ very slight ST depressions inferiorly; no acute ST elevation Prior: Changed - subtly Treatment: Aspirin, NTG Topical Repeat Eval: Pain Free LIZZY Risk: Age >/= 65, >/= 3RF, H/O CAD, ASA within 7 days, Severe Angina </=24 hours Score: 5 - Medical Decision Making Cardiac enzymes returned negative. Patient remained pain-free with nitroglycerin paste on his chest. Given his risk and symptoms at rest, plan is for admission and further risk stratification and evaluation. ED Disposition - Plan for ED Patient: Disposition: Acute Care [facility] Diagnosis: Chest pain, unspecified Referrals: Rodo Zamorano MD [Primary Care Provider] -
--- NOTE | 2019-09-25 19:26 | PCM.HP.STD ---
Problem List (1) Chest pain Status: Acute Qualifiers: Chest pain type: unspecified Qualified Code(s): R07.9 - Chest pain, unspecified (2) Nicotine dependence Status: Chronic Qualifiers: Nicotine product type: cigarettes Substance use status: unspecified nicotine-induced disorder Qualified Code(s): F17.219 - Nicotine dependence, cigarettes, with unspecified nicotine-induced disorders (3) Essential (primary) hypertension Status: Chronic (4) Bilateral carotid artery stenosis Status: Chronic Comment: Left CEA 2005, Right CEA 2012 (5) Atherosclerotic heart disease of [place] coronary artery without angina pectoris Status: Chronic Qualifiers: [place] vs. transplanted heart: [place] heart Qualified Code(s): I25.10 - Atherosclerotic heart disease of [place] coronary artery without angina pectoris (6) AAA (abdominal aortic aneurysm) Status: Chronic Qualifiers: Presence of rupture: without rupture Qualified Code(s): I71.4 - Abdominal aortic aneurysm, without rupture (7) PVD (peripheral vascular disease) Status: Chronic (8) Hyperlipemia Status: Chronic Qualifiers: Hyperlipidemia type: pure hypercholesterolemia Qualified Code(s): E78.00 - Pure hypercholesterolemia, unspecified; E78.0 - Pure hypercholesterolemia History of Present Illness Date of Admission: 09/25/19 Chief Complaint: Chest pain The patient is a 74 y/o M w/ PMHx: Chronic anemia, Obesity, Tobacco use, HTN, HLD, Hx AAA, GERD, Carotid artery disease s/p BL CEA, PVD, CAD s/p PCI LAD and mid RCA who presents to the [facility] ED on 09/25/19 with history of onset of lower sternal chest discomfort approximately 15 to 20 minutes prior to initial ED presentation, onset while seated, dull in description, rated 1-2 out of 10 in severity with radiation straight toward his back with mild associated dyspnea with no nausea, emesis, diaphoresis but similar to his prior discomfort with previous cardiac events prompting ED presentation. He did give himself 2 sublingual nitroglycerin and upon arrival pain had resolved. Work-up in the ED included T 97.1, heart rate 91, BP 184/71, repeat 174/72, respiratory rate 16, 99% on room air, CBC with WBC 6.8, hemoglobin 11.9, platelet 212 without market shift, PTT 30.7, BMP with potassium 3.1, chloride 110, glucose 107, troponin less than 0.015, chest x-ray with no acute cardiopulmonary findings, EKG was sinus rhythm with nonspecific ST changes with slight depressions in the ST leads inferiorly with no acute evidence of ST elevation. In the ED patient administered Nitro-Bid transdermal as well as aspirin 162 mg p.o. x1 and normal saline. Past Medical History Past Medical History (Chronic Problems): Chronic Problems (Last Updated 03/19/19 @ 11:47 by Daphne Dietrich) Nicotine dependence (Chronic) Essential (primary) hypertension (Chronic) Atherosclerotic heart disease [place] coronary artery w/angina pectoris (Chronic) PCI-ОЛЬГА-LAD w/ Cypher Stent 05/2005; PCI-ОЛЬГА-Mid RCA w/ 3.0 x 28 mm Promus 03/07/2010 Bilateral carotid artery stenosis (Chronic) Left CEA 2005, Right CEA 2012 Atherosclerotic heart disease of [place] coronary artery without angina pectoris (Chronic) AAA (abdominal aortic aneurysm) (Chronic) PVD (peripheral vascular disease) (Chronic) Hyperlipemia (Chronic) Medical History: Medical History (Last Updated 03/19/19 @ 11:47 by Daphne Dietrich) Nicotine dependence (Chronic) F17.200 Essential (primary) hypertension (Chronic) I10 Atherosclerotic heart disease [place] coronary artery w/angina pectoris (Chronic) I25.119 PCI-ОЛЬГА-LAD w/ Cypher Stent 05/2005; PCI-ОЛЬГА-Mid RCA w/ 3.0 x 28 mm Promus 03/07/2010 Bilateral carotid artery stenosis (Chronic) I65.23 Left CEA 2005, Right CEA 2012 Atherosclerotic heart disease of [place] coronary artery without angina pectoris (Chronic) I25.10 AAA (abdominal aortic aneurysm) (Chronic) I71.4 PVD (peripheral vascular disease) (Chronic) I73.9 Hyperlipemia (Chronic) E78.5 Claudication I73.9 Obesity E66.9 Dyspnea R06.00 Shortness of breath R06.02 Aortic stenosis (Inactive) I35.0 CAD (coronary artery disease) (Inactive) I25.10 Allergies etodolac [Etodolac] Allergy (Verified 09/25/19 18:17) Unknown pregabalin [From Lyrica] Allergy (Verified 09/25/19 18:17) Unknown Home Medications: Ambulatory Orders Medication Instructions Recorded nitroglycerin 0.4 mg sublingual 0.4 mg SUBLINGUAL Q5M PRN #25 tab 12/09/17 tablet atorvastatin 80 mg tablet 80 mg PO QHS #90 tab 10/12/18 esomeprazole magnesium 40 mg 40 mg PO DAILY #90 cap 12/14/18 capsule,delayed release amlodipine 10 mg tablet 10 mg PO DAILY #90 tab 02/22/19 benazepril 40 mg tablet 40 mg PO DAILY #90 tab 02/22/19 clopidogrel 75 mg tablet 75 mg PO DAILY #90 tab 05/24/19 isosorbide mononitrate 30 mg 30 mg PO DAILY #90 tab 06/17/19 tablet,extended release 24 hr Surgical History: Surgical History (Last Updated 03/23/19 @ 18:31 by Dapnhe Dietrich) History of coronary artery stent placement (Resolved) Onset Date: 03/07/10 Z95.5 PCI-ОЛЬГА-LAD w/ Cypher Stent 05/2005; PCI-ОЛЬГА-Mid RCA w/ 3.0 x 28 mm Promus 03/07/2010 History of appendectomy Z90.49 History of bowel resection Z90.49 History of left heart catheterization Onset Date: 03/19/19 Z98.890 History of left-sided carotid endarterectomy Onset Date: 2005 Z98.890 History of right-sided carotid endarterectomy Onset Date: 2012 Z98.890 History of shoulder surgery Z98.890 bilateral. Surgical History: angioplasty, appendectomy, - - PCI x2, back surgery, bilateral shoulder surgery, bilateral carotid endarterectomy, bowel resection and appendectomy. Psychiatric History: No pertinent psych hx Lives: Spouse/ Significant Other Smoking Status: Current every day smoker - Patient has been attempting to decrease his tobacco usage, currently making 1 pack cigarette tobacco last every 3 days. Tobacco Use: Cigarettes Alcohol: None Drugs: None - *Family History Sibling Family History: Family History (Last Reviewed 02/22/19 @ 13:38 by JAMAR Gonzalez) Brother Hypertension Sister Hypertension History Items: Hypertension Maternal Family History: Family History (Last Reviewed 02/22/19 @ 13:38 by JAMAR Gonzalez) Brother Hypertension Sister Hypertension History Items: - - Patient notes a maternal family history of lung cancer with a prior history of tobacco usage. Paternal Family History: Family History (Last Reviewed 02/22/19 @ 13:38 by JAMAR Gonzalez) Brother Hypertension Sister Hypertension History Items: - - Patient notes a paternal family history of leukemia. Review of Systems Constitutional: Reports: Fatigue. Denies: Chills, Fever, Weight Change HEENT: Reports: - - Rhinorrhea, chronic over the winter.. Denies: Head Aches, Sinus Congestion, Sinus Drainage Cardiovascular: Reports: Chest Pain. Denies: Chest Pressure, Chest Tightness, Heaviness, Light Headedness, Orthopnea, Palpitations, Syncope Respiratory: Reports: Shortness of Breath. Denies: Cough, Shortness of breath at rest, Shortness of breath upon exertion, Sputum production, Wheezing Gastrointestinal: Denies: Abdominal Pain, Nausea, Vomiting Genitourinary: Denies: Dysuria Musculoskeletal: Reports: Joint Pain. Denies: Joint Tenderness Skin: Denies: Rash, Wounds Neurological: Denies: Numbness, Tingling, Focal weakness Psychiatric: Denies: Anxiety, Depression, Homicidal Ideations, Suicidal Ideations Hematologic/ Lymphatic: Reports: Easy Bruising, Easy Bleeding VTE Information - Inpt Only VTE Present on Admission: No VTE Mechan Device Prophylaxis: SCD's VTE Pharm Prophylaxis ordered?: Yes Patient Problems: Active and Suspected Problems (Last Updated 03/19/19 @ 11:47 by Daphne Dietrich) Chest pain (Acute) Chest pain, unspecified (Acute) Subjective: Seated upright in ED bed, fatigued appearance, continued resolution of chest discomfort. Objective: Physical Examination: General: awake, alert, oriented x 3 and cooperative, seated upright in the ED bed in no apparent distress, chest pain remains resolved. Skin: normal color, turgor, no icterus, cyanosis. HEENT: AT/NC, EOMI, PERRLA, MMM, no carotid bruits or JVD noted. Lungs: CTA bilaterally, moderate effort, mild decrease BL bases, no rales, ronchi or wheezing. Heart: Regular rate and rhythm; no gallop, rub audible. Abdomen: soft, obese, NTTP, ND, normal BS, no HSM. Extremities: no cyanosis, clubbing, or edema. Neurological: patient awake, alert, oriented x 3; cognitive function intact; pupils equally reactive to light and accomodation; cranial nerves II-XII grossly normal, moving all 4 extremities, no focal deficits, strength preserved. Psychiatric: affect appears normal, no acute evidence of depressive or anxiety feelings. - Physical Exam Vitals/I&O's: Vital Signs Temp Pulse Resp BP Pulse Ox 97.1 F L 79 16 174/72 H 100 09/25/19 18:18 09/25/19 18:48 09/25/19 18:18 09/25/19 18:48 09/25/19 18:41 Oxygen Flow Rate (L/min) 2 Oxygen Delivery Method Nasal Cannula Weight: 225 lb 1.471 oz Body Mass Index (BMI) 34.2 Laboratory Results 09/25/19 18:25: WBC 6.8, RBC 4.18 L, Hgb 11.9 L, Hct 36.3 L, MCV 86.8, MCH 28.5, MCHC 32.8, RDW Std Deviation 45.9 H, RDW Coeff of [place]u 14.3, Plt Count 212, MPV 9.5, Immature Gran % (Auto) 0.300, Neut % (Auto) 46.1 L, Lymph % (Auto) 42.8 H, [place] % (Auto) 5.9, Eos % (Auto) 4.3, Baso % (Auto) 0.6, Absolute Neuts (auto) 3.1, Absolute Lymphs (auto) 2.91, Nucleated RBC % 0 09/25/19 18:25: APTT 30.7 09/25/19 18:25: Sodium 141, Potassium 3.1 L, Chloride 110 H, Carbon Dioxide 26.0, Anion Gap 5, BUN 11, Creatinine 0.92, Estim Creat Clear Calc 68.15, Est GFR (MDRD) Af Amer 104, Est GFR (MDRD) Non-Af 86, BUN/Creatinine Ratio 12.0, Glucose 107 H, Calcium 9.0, Troponin I < 0.015 Current Medications Sodium Chloride () 1,000 mls @ 150 mls/hr IV .Q6H40M SVETLANA Last Admin: 09/25/19 18:48 Dose: 150 mls/hr Documented by: Assessment/Plan All Active Problems (Last Updated 03/19/19 @ 11:47 by Daphne Dietrich) Chest pain (Acute) History of coronary artery stent placement (Resolved 03/07/10) Chest pain, unspecified (Acute) The patient is a 74 y/o M w/ PMHx: Chronic anemia, Obesity, Tobacco use, HTN, HLD, Hx AAA, GERD, Carotid artery disease s/p BL CEA, PVD, CAD s/p PCI LAD and mid RCA who presents to the [facility] ED on 09/25/19 with history of onset of lower sternal chest discomfort approximately 15 to 20 minutes prior to initial ED presentation, onset while seated, dull in description, rated 1-2 out of 10 in severity with radiation straight toward his back with mild associated dyspnea. 1. Chest Pain: Work-up in the ED included T 97.1, heart rate 91, BP 184/71, repeat 174/72, respiratory rate 16, 99% on room air, CBC with WBC 6.8, hemoglobin 11.9, platelet 212 without market shift, PTT 30.7, BMP with potassium 3.1, chloride 110, glucose 107, troponin less than 0.015, chest x-ray with no acute cardiopulmonary findings, EKG was sinus rhythm with nonspecific ST changes with slight depressions in the ST leads inferiorly with no acute evidence of ST elevation. Will admit to PCU, place on a monitored bed to assure no acute myocardial infarction with serial cardiac enzymes and EKGs. If cardiac enzymes and repeat EKGs remain unremarkable will pursue cardiac stress testing on 09/27/2019. ASA, NG, morphine. 2. CAD: Status post PCI LAD and mid RCA, continue patient aspirin, Plavix, statin, not on BB therapy. 03/19/19 catheterization with mild nonobstructive CAD with calcification with recommendation of medical therapy at that time. 3. Hypertension: Continue home regimen including amlodipine, benazepril, isosorbide, PRN hydralazine. 4. Hyperlipidemia: Continue home statin regimen. AM FLP. 5. Hypokalemia: Admission K+ 3.1, supplementation given, museum level requested, repeat level in AM. 6. Chronic normocytic anemia: Admission hemoglobin 11.9, baseline similar, trend. 7. Carotid Disease: s/p BL CEA, continue asa, plavix, BP regimen, encourage tobacco cessation. 8. Known AAA: Following w/ Dr. Horn, last noted US 12/18/18 with maximal aortic diameter proximally 2.3 x 2.3 cm with normal flow, left common iliac 1.07 x 1.11 cm with slightly increased velocity, right common iliac 1.16 x 1.18 cm with normal flow. 9. Tobacco Abuse: Encouraged cessation, inpatient consultation per RT, NR if desired. 10. GERD: We will continue patient home PPI. 11. DVT prophylaxis: SCDs, Lovenox. Code Visit OBSV E&M: 62010 Initial observation care L3
--- NOTE | 2019-09-25 20:08 | EKG12_ITS ---
Test Reason : CP Blood Pressure : / mmHG Vent. Rate : 088 BPM Atrial Rate : 088 BPM P-R Int : 162 ms QRS Dur : 084 ms QT Int : 394 ms P-R-T Axes : 050 054 073 degrees QTc Int : 476 ms Normal sinus rhythm Nonspecific ST and T wave abnormality Prolonged QT Abnormal ECG Confirmed by BARI NESBITT, CLARITZA ([id number]), clinical editor CHANCE FRANCISCO ([id number]) on 09/27/2019 10:14:49 AM Referred By: KATHYA Confirmed By:CLARITZA CANDELARIA MD
[2019-09-25 20:37] LABS: Magnesium 2.2 mg/dL (1.6-2.6)
[2019-09-26] VITALS (12 sets, daily range): BP systolic 126–159; BP diastolic 42–64; PULSE 55–77; RESP 16–18; TEMP 36.6–36.8; O2SAT 95–98
[2019-09-26] MEDS: Nitroglycerin Oint 1 INCH PACKET TRANSDERM. ×4 (00:16→18:12)
[2019-09-26 07:26] LABS: Absolute Lymphocyte Count 1.79 X10^3/uL (0.83-4.51); Absolute Neutrophil Count 2.8 X10^3/uL (2.0-7.7); Basophil# 0.04 X10^3/uL; Basophil% 0.8 % (0-1); Eosinophil# 0.27 X10^3/uL; Eosinophils% 5.2 % (0-5); Hematocrit 32.7 % (40-54); Hemoglobin 10.7 g/dL (13.0-16.5); Lymphocyte # 1.79 X10^3/ul (4.0); Lymphocyte % 34.7 % (19-41); Mean Corp Hgb Conc 32.7 g/dL (32-36); Mean Corpuscular Hgb 28.1 pg (27.0-32.0); Mean Corpuscular Volume 85.8 fL (80-94); Mean Platelet Vol. 10.1 fl (6.2-12.0); Monocyte# 0.29 X10^3/uL; Monocyte% 5.6 % (0-10); NRBC Flagged by Analyzer 0 % (0-5); Neutrophil # 2.76 X10^3/uL (2.7-7.7); Neutrophil % 53.5 % (47-70); Platelet Count 200 K/mm3 (150-450); RBC Distribution Width CV 14.2 % (11.6-14.6); RBC Distribution Width SD 44.6 fl (35.1-43.9); Red Blood Count 3.81 M/mm3 (4.6-6.2); White Blood Count 5.2 K/mm3 (4.4-11.0)
[2019-09-26 07:46] LABS: Anion Gap 5 (5-15); BUN 8 mg/dL (7-18); Calcium,Total 8.4 mg/dL (8.5-10.1); Chloride 113 mmol/L (98-107); Cholesterol 117 mg/dL (200); Creatinine, Serum 0.73 mg/dL (0.70-1.30); EST Glomerular Filtration Rate 112 mL/min (>60); Est Glom Filt Rate - Afr Amer 136 mL/min (>60); Glucose 103 mg/dL (74-106); High Density Lipoprotein 43 mg/dL; Sodium Level 143 mmol/L (136-145); Triglycerides 94 mg/dL; Very Low Density Lipoprotein 19 mg/dL (5-40)
[2019-09-26] MEDS: Clopidogrel Bisulfate 75 MG Tablet PO (08:43)
[2019-09-26] MEDS: Aspirin E.C. 81 MG Tablet PO (08:43)
[2019-09-26] MEDS: Pantoprazole Sodium 40 MG Tablet PO ×2 (08:43)
[2019-09-26] MEDS: Isosorbide Mononitrate 30 MG Tablet PO (08:43)
[2019-09-26] MEDS: amLODIPine 10 MG Tablet PO (08:43)
[2019-09-26] MEDS: Lisinopril 40 MG Tablet PO (08:43)
--- NOTE | 2019-09-26 10:06 | PN_ITS ---
<Melissa Cox - Last Filed: 09/26/19 10:22> Patient Problems: Active and Suspected Problems (Last Updated 03/19/19 @ 11:47 by Daphne Dietrich) Chest pain (Acute) Chest pain, unspecified (Acute) Subjective: Patient seen and examined. Denies further chest pain overnight. Asking if he can have stress test as outpatient. Discussed with patient given his cardiac history that it is recommended to have a stress test done during hospitalization. Patient in agreement. - Physical Exam Vitals/I&O's: Vital Signs Temp Pulse Resp BP Pulse Ox 98.2 F 63 16 158/42 H 95 09/26/19 08:36 09/26/19 08:36 09/26/19 08:36 09/26/19 08:36 09/26/19 10:03 Oxygen Flow Rate (L/min) 2 Oxygen Delivery Method Room Air Weight: 216 lb 14.958 oz Body Mass Index (BMI) 33.0 Intake and Output for Last 24 Hours 09/24/19 09/25/19 09/26/19 23:59 23:59 23:59 Intake Total 442.5 / 442.5 240 / 240 Balance 442.5 / 442.5 240 / 240 General: Alert, Oriented x3, Cooperative HEENT: Atraumatic, PERRLA, EOMI, Normocephalic Neck: Supple, No JVD, Negative Carotid Bruits Lungs: Clear to auscultation, Normal air movement Cardiovascular: Regular rate, Regular Rhythm, Normal S1, Normal S2, Murmur Abdomen: Bowel Sounds Present, Soft, Non Tender Extremities: No clubbing, No cyanosis, No edema, Capillary Refill Less than 3 Seconds Skin: No rashes, No breakdown Musculoskeletal: No Tenderness to Palpation of Joints or Extremities Neurological: Cranial nerves II-XII grossly intact, Neuro grossly intact Psych/Mental Status: Normal Affect, Appropriate Laboratory Results 09/25/19 18:25: WBC 6.8, RBC 4.18 L, Hgb 11.9 L, Hct 36.3 L, MCV 86.8, MCH 28.5, MCHC 32.8, RDW Std Deviation 45.9 H, RDW Coeff of Malu 14.3, Plt Count 212, MPV 9.5, Immature Gran % (Auto) 0.300, Neut % (Auto) 46.1 L, Lymph % (Auto) 42.8 H, Meigs % (Auto) 5.9, Eos % (Auto) 4.3, Baso % (Auto) 0.6, Absolute Neuts (auto) 3.1, Absolute Lymphs (auto) 2.91, Nucleated RBC % 0 09/25/19 18:25: APTT 30.7 09/25/19 18:25: Sodium 141, Potassium 3.1 L, Chloride 110 H, Carbon Dioxide 26.0, Anion Gap 5, BUN 11, Creatinine 0.92, Estim Creat Clear Calc 68.15, Est GFR (MDRD) Af Amer 104, Est GFR (MDRD) Non-Af 86, BUN/Creatinine Ratio 12.0, Glucose 107 H, Calcium 9.0, Troponin I < 0.015 09/25/19 18:25: Magnesium 2.2 09/25/19 21:10: Troponin I < 0.015 09/26/19 00:30: Troponin I < 0.015 09/26/19 05:57: WBC 5.2, RBC 3.81 L, Hgb 10.7 L, Hct 32.7 L, MCV 85.8, MCH 28.1, MCHC 32.7, RDW Std Deviation 44.6 H, RDW Coeff of Malu 14.2, Plt Count 200, MPV 10.1, Immature Gran % (Auto) 0.200, Neut % (Auto) 53.5, Lymph % (Auto) 34.7, Meigs % (Auto) 5.6, Eos % (Auto) 5.2 H, Baso % (Auto) 0.8, Absolute Neuts (auto) 2.8, Absolute Lymphs (auto) 1.79, Nucleated RBC % 0 09/26/19 05:57: Sodium 143, Potassium 4.0, Chloride 113 H, Carbon Dioxide 25.0, Anion Gap 5, BUN 8, Creatinine 0.73, Estim Creat Clear Calc 62.70, Est GFR (MDRD) Af Amer 136, Est GFR (MDRD) Non-Af 112, BUN/Creatinine Ratio 11.0, Glucose 103, Calcium 8.4 L, Triglycerides 94, Cholesterol 117, LDL Cholesterol 55, VLDL Cholesterol 19, HDL Cholesterol 43 Current Medications Acetaminophen (Tylenol) 650 mg PO Q6H PRN PRN PRN Reason: Pain Score 1-10/Temp > 100.7 F Al Hydroxide/Mg Hydroxide (Mylanta Ii) 30 ml PO Q6H PRN PRN PRN Reason: Gastric Burning Albuterol Sulfate (Ventolin Aerosols) 2.5 mg INHALATION Q2H PRN PRN PRN Reason: SOB/Wheezing Amlodipine Besylate (Norvasc) 10 mg PO DAILY [facility] Last Admin: 09/26/19 08:43 Dose: 10 mg Documented by: Aspirin (Ecotrin) 81 mg PO DAILY@0800 [facility] Last Admin: 09/26/19 08:43 Dose: 81 mg Documented by: Atorvastatin Calcium (Lipitor) 80 mg PO QHS [facility] Last Admin: 09/25/19 21:30 Dose: Not Given Documented by: Clopidogrel Bisulfate (Plavix) 75 mg PO DAILY [facility] Last Admin: 09/26/19 08:43 Dose: 75 mg Documented by: Enoxaparin Sodium (Lovenox) 40 mg SC DAILY [facility] Last Admin: 09/26/19 08:44 Dose: Not Given Documented by: Glucagon () 1 mg IM .X1 PRN PRN Reason: Hypoglycemia Guaifenesin (Robitussin) 20 ml PO Q4H PRN PRN PRN Reason: COUGH Hydralazine HCl (Apresoline Iv) 10 mg IV Q4H PRN PRN PRN Reason: SBP > 160 Dextrose (Dextrose 10%-Water) 250 mls @ 999 mls/hr IV .Q16M PRN; Protocol PRN Reason: HYPOGLYCEMIA Isosorbide Mononitrate (Imdur) 30 mg PO DAILY [facility] Last Admin: 09/26/19 08:43 Dose: 30 mg Documented by: Lisinopril (Zestril) 40 mg PO DAILY [facility] Last Admin: 09/26/19 08:43 Dose: 40 mg Documented by: Magnesium Hydroxide (Milk Of Magnesia) 30 ml PO DAILY PRN PRN PRN Reason: Constipation Melatonin (Melatonin) 3 mg PO QHS PRN PRN PRN Reason: INSOMNIA Morphine Sulfate () 2 mg IV Q3H PRN PRN PRN Reason: Pain Score 6-10/10 Nitroglycerin (Nitrobid) 1 inch TRANSDERM. Q6 [facility] Last Admin: 09/26/19 05:07 Dose: 1 inch Documented by: Ondansetron HCl (Zofran) 4 mg IV Q8H PRN PRN PRN Reason: NAUSEA/VOMITING Oxycodone HCl (Oxyir) 5 mg PO Q4H PRN PRN PRN Reason: Pain Score 4-5/10 Pantoprazole Sodium (Protonix) 40 mg PO DAILY [facility] Last Admin: 09/26/19 08:43 Dose: 40 mg Documented by: Prochlorperazine Edisylate (Compazine Iv) 5 mg IV Q4H PRN PRN PRN Reason: Breakthrough Nausea/Vomiting Psyllium Hydrophilic Mucilloid (Metamucil) 1 packet PO DAILY PRN PRN PRN Reason: Constipation Senna/Docusate Sodium (Senokot-S, Veda-Colace) 2 tablet PO BID PRN PRN PRN Reason: Constipation Sodium Chloride () 10 - 40 ml IV UD PRN PRN Reason: SALINE FLUSH Throat Lozenges (Cepacol Sore Throat Lozenge) 1 lozenge MUCOUS MEM Q2H PRN PRN PRN Reason: SORE THROAT Medical Necessity - Tobacco Use Smoking Status: Current every day smoker Tobacco Use: Cigarettes Assessment/Plan All Active Problems (Last Updated 03/19/19 @ 11:47 by Daphne Dietrich) Chest pain (Acute) History of coronary artery stent placement (Resolved 03/07/10) Chest pain, unspecified (Acute) 1. Chest pain, rule out ACS-troponin negative. EKG without acute ischemia. Plan for stress test 09/27/2019. Continue aspirin, statin, nitro patch. 2. CAD with history of PCI to LAD and mid RCA-follows with Dr. Perry. To undergo stress test as noted above. Continue aspirin, Plavix, statin. Cardiac cath February 2019 showed mild nonobstructive CAD with calcification. 3. Hypertension- stable, continue amlodipine, benazepril, isosorbide. 4. Hyperlipidemia-continue statin. 5. Chronic normocytic anemia-stable, trend CBC. 6. Carotid disease status post bilateral CEA-continue aspirin, Plavix, statin. 7. AAA- Follows with Dr. Horn. Continue outpatient follow-up. 8. Tobacco dependence-encouraged cessation. Nicotine replacement if desired. 9. GERD-continue PPI. DVT prophylaxis-Lovenox wi This patient was seen by BLAKE Guerrero under the supervision of Dr. Lewis. <Sathya Lewis - Last Filed: 09/26/19 12:27> - Physical Exam Vitals/I&O's: Vital Signs Temp Pulse Resp BP Pulse Ox 98.2 F 63 16 158/42 H 95 09/26/19 08:36 09/26/19 08:36 09/26/19 08:36 09/26/19 08:36 09/26/19 10:03 Oxygen Flow Rate (L/min) 2 Oxygen Delivery Method Room Air Weight: 98.4 kg Body Mass Index (BMI) 33.0 Intake and Output for Last 24 Hours 09/24/19 09/25/19 09/26/19 23:59 23:59 23:59 Intake Total 442.5 / 442.5 480 / 480 Balance 442.5 / 442.5 480 / 480 Laboratory Results 09/25/19 18:25: WBC 6.8, RBC 4.18 L, Hgb 11.9 L, Hct 36.3 L, MCV 86.8, MCH 28.5, MCHC 32.8, RDW Std Deviation 45.9 H, RDW Coeff of Malu 14.3, Plt Count 212, MPV 9.5, Immature Gran % (Auto) 0.300, Neut % (Auto) 46.1 L, Lymph % (Auto) 42.8 H, Meigs % (Auto) 5.9, Eos % (Auto) 4.3, Baso % (Auto) 0.6, Absolute Neuts (auto) 3.1, Absolute Lymphs (auto) 2.91, Nucleated RBC % 0 09/25/19 18:25: APTT 30.7 09/25/19 18:25: Sodium 141, Potassium 3.1 L, Chloride 110 H, Carbon Dioxide 26.0, Anion Gap 5, BUN 11, Creatinine 0.92, Estim Creat Clear Calc 68.15, Est GFR (MDRD) Af Amer 104, Est GFR (MDRD) Non-Af 86, BUN/Creatinine Ratio 12.0, Glucose 107 H, Calcium 9.0, Troponin I < 0.015 09/25/19 18:25: Magnesium 2.2 09/25/19 21:10: Troponin I < 0.015 09/26/19 00:30: Troponin I < 0.015 09/26/19 05:57: WBC 5.2, RBC 3.81 L, Hgb 10.7 L, Hct 32.7 L, MCV 85.8, MCH 28.1, MCHC 32.7, RDW Std Deviation 44.6 H, RDW Coeff of Malu 14.2, Plt Count 200, MPV 10.1, Immature Gran % (Auto) 0.200, Neut % (Auto) 53.5, Lymph % (Auto) 34.7, Meigs % (Auto) 5.6, Eos % (Auto) 5.2 H, Baso % (Auto) 0.8, Absolute Neuts (auto) 2.8, Absolute Lymphs (auto) 1.79, Nucleated RBC % 0 09/26/19 05:57: Sodium 143, Potassium 4.0, Chloride 113 H, Carbon Dioxide 25.0, Anion Gap 5, BUN 8, Creatinine 0.73, Estim Creat Clear Calc 62.70, Est GFR (MDRD) Af Amer 136, Est GFR (MDRD) Non-Af 112, BUN/Creatinine Ratio 11.0, Glucose 103, Calcium 8.4 L, Triglycerides 94, Cholesterol 117, LDL Cholesterol 55, VLDL Cholesterol 19, HDL Cholesterol 43 Current Medications Acetaminophen (Tylenol) 650 mg PO Q6H PRN PRN PRN Reason: Pain Score 1-10/Temp > 100.7 F Al Hydroxide/Mg Hydroxide (Mylanta Ii) 30 ml PO Q6H PRN PRN PRN Reason: Gastric Burning Albuterol Sulfate (Ventolin Aerosols) 2.5 mg INHALATION Q2H PRN PRN PRN Reason: SOB/Wheezing Amlodipine Besylate (Norvasc) 10 mg PO DAILY [facility] Last Admin: 09/26/19 08:43 Dose: 10 mg Documented by: Aspirin (Ecotrin) 81 mg PO DAILY@0800 [facility] Last Admin: 09/26/19 08:43 Dose: 81 mg Documented by: Atorvastatin Calcium (Lipitor) 80 mg PO QHS [facility] Last Admin: 09/25/19 21:30 Dose: Not Given Documented by: Clopidogrel Bisulfate (Plavix) 75 mg PO DAILY [facility] Last Admin: 09/26/19 08:43 Dose: 75 mg Documented by: Enoxaparin Sodium (Lovenox) 40 mg SC DAILY [facility] Last Admin: 09/26/19 08:44 Dose: Not Given Documented by: Glucagon () 1 mg IM .X1 PRN PRN Reason: Hypoglycemia Guaifenesin (Robitussin) 20 ml PO Q4H PRN PRN PRN Reason: COUGH Hydralazine HCl (Apresoline Iv) 10 mg IV Q4H PRN PRN PRN Reason: SBP > 160 Dextrose (Dextrose 10%-Water) 250 mls @ 999 mls/hr IV .Q16M PRN; Protocol PRN Reason: HYPOGLYCEMIA Isosorbide Mononitrate (Imdur) 30 mg PO DAILY [facility] Last Admin: 09/26/19 08:43 Dose: 30 mg Documented by: Lisinopril (Zestril) 40 mg PO DAILY [facility] Last Admin: 09/26/19 08:43 Dose: 40 mg Documented by: Magnesium Hydroxide (Milk Of Magnesia) 30 ml PO DAILY PRN PRN PRN Reason: Constipation Melatonin (Melatonin) 3 mg PO QHS PRN PRN PRN Reason: INSOMNIA Morphine Sulfate () 2 mg IV Q3H PRN PRN PRN Reason: Pain Score 6-10/10 Nitroglycerin (Nitrobid) 1 inch TRANSDERM. Q6 [facility] Last Admin: 09/26/19 11:43 Dose: 1 inch Documented by: Ondansetron HCl (Zofran) 4 mg IV Q8H PRN PRN PRN Reason: NAUSEA/VOMITING Oxycodone HCl (Oxyir) 5 mg PO Q4H PRN PRN PRN Reason: Pain Score 4-5/10 Pantoprazole Sodium (Protonix) 40 mg PO DAILY [facility] Last Admin: 09/26/19 08:43 Dose: 40 mg Documented by: Prochlorperazine Edisylate (Compazine Iv) 5 mg IV Q4H PRN PRN PRN Reason: Breakthrough Nausea/Vomiting Psyllium Hydrophilic Mucilloid (Metamucil) 1 packet PO DAILY PRN PRN PRN Reason: Constipation Senna/Docusate Sodium (Senokot-S, Veda-Colace) 2 tablet PO BID PRN PRN PRN Reason: Constipation Sodium Chloride () 10 - 40 ml IV UD PRN PRN Reason: SALINE FLUSH Throat Lozenges (Cepacol Sore Throat Lozenge) 1 lozenge MUCOUS MEM Q2H PRN PRN PRN Reason: SORE THROAT Assessment/Plan This patient was seen in conjunction with BLAKE Guerrero . I have independently interviewed and examined the patient and reviewed pertinent historical, laboratory, and other data. Please refer to BLAKE Guerrero note for details of this patient's presentation, findings, and recommendations. I have reviewed BLAKE Guerrero note and concur with documented findings. In brief, patient is a 74-year-old male with past medical history single for CAD with previous PCI with ОЛЬГА to LAD and RCA lesions who presented with chest pain. Admitted to monitored bed where patient is currently undergoing evaluation. Cardiac enzymes have remained negative to date so far however plan is for patient to undergo subsequent work-up with a nuclear stress test on 09/27/2019. Recommendations: 1. I have discussed the results of my overview and impressions with the patient 2. Options for management were reviewed Code Visit OBSV E&M: 14466 Subsequent observation care L3
[2019-09-26] MEDS: Atorvastatin Calcium 80 MG Tablet PO (21:42)
[2019-09-27 03:00] VITALS: PULSE 57
[2019-09-27 03:35] VITALS: BP 148/55; PULSE 58; RESP 18; TEMP 36.4; O2SAT 100
[2019-09-27] MEDS: Clopidogrel Bisulfate 75 MG Tablet PO (05:37)
[2019-09-27] MEDS: Aspirin E.C. 81 MG Tablet PO (05:37)
[2019-09-27] MEDS: Lisinopril 40 MG Tablet PO (05:37)
[2019-09-27 06:15] LABS: Hematocrit 33.3 % (40-54); Hemoglobin 10.9 g/dL (13.0-16.5); Mean Corp Hgb Conc 32.7 g/dL (32-36); Mean Corpuscular Hgb 28.4 pg (27.0-32.0); Mean Corpuscular Volume 86.7 fL (80-94); Mean Platelet Vol. 10.1 fl (6.2-12.0); Platelet Count 190 K/mm3 (150-450); RBC Distribution Width CV 14.3 % (11.6-14.6); RBC Distribution Width SD 45.1 fl (35.1-43.9); Red Blood Count 3.84 M/mm3 (4.6-6.2); White Blood Count 5.2 K/mm3 (4.4-11.0)
[2019-09-27 06:38] LABS: Anion Gap 7 (5-15); BUN 15 mg/dL (7-18); BUN/Creat Ratio 18.6 RATIO (10-20); Calcium,Total 8.4 mg/dL (8.5-10.1); Chloride 112 mmol/L (98-107); Creatinine, Serum 0.81 mg/dL (0.70-1.30); EST Glomerular Filtration Rate 99 mL/min (>60); Est Glom Filt Rate - Afr Amer 120 mL/min (>60); Estimated Creatinine Clearance 77.41 ml/min; Glucose 103 mg/dL (74-106); Potassium 3.8 mmol/L (3.5-5.1); Sodium Level 142 mmol/L (136-145)
[2019-09-27 06:49] VITALS: PULSE 69
[2019-09-27 07:25] VITALS: O2SAT 96
[2019-09-27 10:24] VITALS: BP 154/43; PULSE 60; RESP 18; TEMP 36.4; O2SAT 100
[2019-09-27] MEDS: Isosorbide Mononitrate 30 MG Tablet PO (10:25)
[2019-09-27] MEDS: amLODIPine 10 MG Tablet PO (10:26)
--- NOTE | 2019-09-27 11:29 | CASEMGMT ---
Case Management Progress Note: This chief writer to l patient bedside, introduced self and role. Explained/reviewed CASILLAS form with patient in regards to current treatment this hospital stay. Informed outpatient billing is determined by his insurance policy and continual review is conducted to determine any changes in condition that may warrant inpatient stay. Denies any questions or concerns with CASILLAS form and signed form which was placed in patient hard chart. Provided a copy. BRANDY Contreras
--- NOTE | 2019-09-27 11:33 | DCINST_ITS ---
- Discharge Diagnoses Current Active Problems: Current Active and Chronic Problems (Last Updated 03/19/19 @ 11:47 by Daphne Dietrich) Chest pain (Acute) Chest pain, unspecified (Acute) You will use the following diet at home:: Cardiac Discharge Activity: Return to Normal Activity Call your doctor if you observe: Shortness of breath, Dizziness, Fainting spells, Chest pain Additional Instructions: Continue previously prescribed blood pressure regimen including amlodipine, benazepril, isosorbide. Allergies/Adverse Reactions: Allergies etodolac [Etodolac] Allergy (Verified 09/25/19 18:17) Unknown pregabalin [From Lyrica] Allergy (Verified 09/25/19 18:17) Unknown Medications to take at Discharge nitroglycerin 0.4 mg sublingual tablet 0.4 mg SUBLINGUAL Q5M PRN #25 tab 12/09/17 atorvastatin 80 mg tablet 80 mg PO QHS #90 tab 10/12/18 esomeprazole magnesium 40 mg capsule,delayed release 40 mg PO DAILY #90 cap 12/14/18 clopidogrel 75 mg tablet 75 mg PO DAILY #90 tab 05/24/19 isosorbide mononitrate 30 mg tablet,extended release 24 hr 30 mg PO DAILY #90 tab 06/17/19 Amlodipine [Norvasc] 10 mg PO DAILY tablet 09/27/19 Primary Care Physician: Rodo Zamorano MD [Primary Care Provider] - Please follow up with your Primary Care Physician in: 1 Week Test Results: Test results from this visit will be discussed in further detail at your follow- up appointment, if applicable. Please Follow Up With: Shahram Perry MD When: As scheduled, 11/11/2019 Proposed Discharge Date: 09/27/19
--- NOTE | 2019-09-27 11:56 | PHA.DC.MR ---
Pharmacy Service has performed discharge medication reconciliation for this patient. The patient's discharge medication list was reviewed for discrepancies and discrepancies were resolved. Home Medications nitroglycerin 0.4 mg sublingual tablet 0.4 mg SUBLINGUAL Q5M PRN #25 tab 12/09/17 atorvastatin 80 mg tablet 80 mg PO QHS #90 tab 10/12/18 esomeprazole magnesium 40 mg capsule,delayed release 40 mg PO DAILY #90 cap 12/14/18 clopidogrel 75 mg tablet 75 mg PO DAILY #90 tab 05/24/19 isosorbide mononitrate 30 mg tablet,extended release 24 hr 30 mg PO DAILY #90 tab 06/17/19 Amlodipine [Norvasc] 10 mg PO DAILY tab 09/27/19
--- NOTE | 2019-09-27 12:59 | STRESSREP ---
Stress Test Report Pharmacologic myocardial perfusion stress test. 74-year-old l man with a history of previous coronary artery disease status post previous LAD and mid right coronary artery stenting. Resting EKG demonstrates sinus bradycardia with a rate of 55 bpm T wave inversions and downsloping ST depression noted in leads II, III and aVF. 0.4 mg of regadenoson was infused per usual protocol followed by rapid intravenous saline flush injection continuous EKG monitoring was performed. Patient maintained sinus rhythm throughout the recording. The maximum heart rate attained was 102 bpm which was 69% of maximum predicted heart rate the maximum workload was 1 metabolic equivalent. At rest there were no definitive ST or T wave changes noted to suggest ischemia. The downsloping ST changes were noted as above. There was no change during peak infusion. The maximum blood pressure was 146/62 mmHg. Myocardial perfusion protocol. 12.0 mCi of technetium 99m sestamibi was injected at rest. 0.4 mg of regadenoson was infused per usual protocol peak infusion 34.7 mCi of technetium 99m sestamibi was injected stress images were obtained stress and rest images were reconstructed in comparing the short axis vertical long horizontal long axis. Gated images were also obtained. No CT images were obtained. Perfusion SPECT analysis: Review of the stress images demonstrate normal uptake of tracer noted in the septum anterior wall and lateral wall. The inferior wall demonstrates reduced perfusion on the stress and rest images to a similar extent. There is a small portion of the mid inferior wall with minimal improvement suggesting a previous inferior infarct with very minimal isaac-infarct ischemia. Gated SPECT analysis: The gated ejection fraction is 59%. Conclusion: Pharmacologic stress test with no obvious evidence of ischemia. Previous inferior infarct cannot be complete excluded. Preserved ejection fraction is present.
--- NOTE | 2019-09-27 13:40 | DS.PCM_ITS ---
<Melissa Cox - Last Filed: 09/27/19 13:47> Discharge Date and Diagnosis Date of Admission: 09/25/19 Date of Discharge: 09/27/19 - Primary Discharge Diagnosis 1. Chest pain, ACS ruled out 2. CAD with history of PCI to LAD and mid RCA 3. Hypertension 4. Hyperlipidemia 5. Chronic normocytic anemia 6. Carotid disease status post bilateral CEA 7. AAA 8. Tobacco dependence 9. GERD - Secondary Discharge Diagnosis Chronic Problems (Last Updated 03/19/19 @ 11:47 by Daphne Dietrich) Nicotine dependence (Chronic) Essential (primary) hypertension (Chronic) Atherosclerotic heart disease [place] coronary artery w/angina pectoris (Chronic) PCI-ОЛЬГА-LAD w/ Cypher Stent 05/2005; PCI-ОЛЬГА-Mid RCA w/ 3.0 x 28 mm Promus 03/07/2010 Bilateral carotid artery stenosis (Chronic) Left CEA 2005, Right CEA 2012 Atherosclerotic heart disease of [place] coronary artery without angina pectoris (Chronic) AAA (abdominal aortic aneurysm) (Chronic) PVD (peripheral vascular disease) (Chronic) Hyperlipemia (Chronic) Hospital Course and Treatment Imaging Results: Diagnostic Data Chest X-Ray 09/25/19 18:40 IMPRESSION: Normal x-ray examination of the chest. Electronically Signed: Danna Odell, at 18:52 EST Tel , Service support , Operations: None Procedures: Stress test Summary of Care Provided: The patient is a 74 year old M admitted 09/25/2019 due to chest pain. 1. Chest pain, ACS ruled out-troponin negative. EKG without acute ischemia. Patient underwent stress test which was negative for ischemia. Gated ejection fraction 59%. Continue outpatient follow-up with cardiology as scheduled. Noemy pettit has upcoming follow-up with Dr. Perry 11/11/2019. 2. CAD with history of PCI to LAD and mid RCA-follows with Dr. Perry. Continue aspirin, Plavix, statin. Cardiac cath February 2019 showed mild nonobstructive CAD with calcification. 3. Hypertension- stable, continue amlodipine, benazepril, isosorbide. 4. Hyperlipidemia-continue statin. 5. Chronic normocytic anemia-stable. 6. Carotid disease status post bilateral CEA-continue aspirin, Plavix, statin. 7. AAA- Follows with Dr. Horn. Continue outpatient follow-up. 8. Tobacco dependence-encouraged cessation. Nicotine replacement if desired. 9. GERD-continue PPI. General: Alert, Oriented x3, Cooperative HEENT: Atraumatic, PERRLA, EOMI, Normocephalic Neck: Supple, No JVD, Negative Carotid Bruits Lungs: Clear to auscultation, Normal air movement Cardiovascular: Regular rate, Regular Rhythm, Normal S1, Normal S2, Murmur Abdomen: Bowel Sounds Present, Soft, Non Tender Extremities: No clubbing, No cyanosis, No edema, Capillary Refill Less than 3 Seconds Skin: No rashes, No breakdown Musculoskeletal: No Tenderness to Palpation of Joints or Extremities Neurological: Cranial nerves II-XII grossly intact, Neuro grossly intact Psych/Mental Status: Normal Affect, Appropriate Patient seen and examined prior to discharge. Physical assessment as noted above. Patient is stable for discharge with follow up recommendations as noted above. This patient was seen by BLAKE Guerrero under the supervision of Dr. Espino. - Physical Exam Vitals/I&O's: Vital Signs Temp Pulse Resp BP Pulse Ox 97.5 F L 60 18 154/43 H 100 09/27/19 10:24 09/27/19 10:24 09/27/19 10:24 09/27/19 10:24 09/27/19 10:24 Oxygen Flow Rate (L/min) 2 Oxygen Delivery Method Room Air Weight: 216 lb 14.958 oz Body Mass Index (BMI) 33.0 Intake and Output for Last 24 Hours 09/25/19 09/26/19 09/27/19 23:59 23:59 23:59 Intake Total 442.5 / 442.5 960 / 960 200 / 200 Balance 442.5 / 442.5 960 / 960 200 / 200 Laboratory Results 09/27/19 04:56: WBC 5.2, RBC 3.84 L, Hgb 10.9 L, Hct 33.3 L, MCV 86.7, MCH 28.4, MCHC 32.7, RDW Std Deviation 45.1 H, RDW Coeff of [place] 14.3, Plt Count 190, MPV 10.1 09/27/19 04:56: Sodium 142, Potassium 3.8, Chloride 112 H, Carbon Dioxide 23.0, Anion Gap 7, BUN 15, Creatinine 0.81, Estim Creat Clear Calc 77.41, Est GFR (MDRD) Af Amer 120, Est GFR (MDRD) Non-Af 99, BUN/Creatinine Ratio 18.6, Glucose 103, Calcium 8.4 L Discharge Diet: Low fat/ Low Cholesterol Discharge Activity: Return to Normal Activity Call your doctor if you observe: Shortness of breath, Dizziness, Fainting spells, Chest pain Home Medications: Medications to take at Discharge nitroglycerin 0.4 mg sublingual tablet 0.4 mg SUBLINGUAL Q5M PRN #25 tab 12/09/17 atorvastatin 80 mg tablet 80 mg PO QHS #90 tab 10/12/18 esomeprazole magnesium 40 mg capsule,delayed release 40 mg PO DAILY #90 cap 12/14/18 clopidogrel 75 mg tablet 75 mg PO DAILY #90 tab 05/24/19 isosorbide mononitrate 30 mg tablet,extended release 24 hr 30 mg PO DAILY #90 tab 06/17/19 Amlodipine [Norvasc] 10 mg PO DAILY tab 09/27/19 Primary Care Physician: Rodo Zamorano MD [Primary Care Provider] - Please follow up with your Primary Care Physician in: 1 Week Please Follow Up With: Shahram Perry MD When: As scheduled, 11/11/2019 Disposition: Home Minutes spent on discharge:: 35 Patient Condition:: Stable Medical Necessity - Tobacco Use Smoking Status: Current every day smoker Tobacco Use: Cigarettes Meaningful Use Info Meaningful Use Diagnoses (Choose all that apply): None applicable <Mamta Espino - Last Filed: 09/27/19 15:55> Discharge Date and Diagnosis - Secondary Discharge Diagnosis Chronic Problems (Last Updated 03/19/19 @ 11:47 by Daphne Dietrich) Nicotine dependence (Chronic) Essential (primary) hypertension (Chronic) Atherosclerotic heart disease [place] coronary artery w/angina pectoris (Chronic) PCI-ОЛЬГА-LAD w/ Cypher Stent 05/2005; PCI-ОЛЬГА-Mid RCA w/ 3.0 x 28 mm Promus 03/07/2010 Bilateral carotid artery stenosis (Chronic) Left CEA 2005, Right CEA 2012 Atherosclerotic heart disease of [place] coronary artery without angina pectoris (Chronic) AAA (abdominal aortic aneurysm) (Chronic) PVD (peripheral vascular disease) (Chronic) Hyperlipemia (Chronic) Hospital Course and Treatment Summary of Care Provided: This patient was seen in conjunction with Melissa Cox NP. I have independently interviewed and examined the patient and reviewed pertinent historical, laboratory, and other data. Please refer to her note for patient's presentation, findings, and recommendations. 74-year-old male with past medical history of CAD status post stents, carotid artery disease status post bilateral carotid endarterectomy who presented with chest discomfort associated with dyspnea but no diaphoresis or nausea or vomiting. Chest pain was relieved with 2 nitroglycerin. EKG showed no acute ST-T elevation. Patient's troponins were negative. Patient underwent stress test that was negative. He has an upcoming appointment with cardiology. Recommended that he follows up with that. On the day of discharge, patient was seen and examined. Denied any chest discomfort. Physical Exam: Gen: Obese, not pale, not jaundiced, alert oriented x3 CVS:HS I +II, regular, no murmurs RESP: CTA GI: BS present and normal, nontender, no palpable organs EXT:No edema - Physical Exam Vitals/I&O's: Vital Signs Temp Pulse Resp BP Pulse Ox 97.5 F L 60 18 154/43 H 100 09/27/19 10:24 09/27/19 10:24 09/27/19 10:24 09/27/19 10:24 09/27/19 10:24 Oxygen Flow Rate (L/min) 2 Oxygen Delivery Method Room Air Weight: 98.4 kg Body Mass Index (BMI) 33.0 Intake and Output for Last 24 Hours 09/25/19 09/26/19 09/27/19 23:59 23:59 23:59 Intake Total 442.5 / 442.5 960 / 960 200 / 200 Balance 442.5 / 442.5 960 / 960 200 / 200 Laboratory Results 09/27/19 04:56: WBC 5.2, RBC 3.84 L, Hgb 10.9 L, Hct 33.3 L, MCV 86.7, MCH 28.4, MCHC 32.7, RDW Std Deviation 45.1 H, RDW Coeff of [place] 14.3, Plt Count 190, MPV 10.1 09/27/19 04:56: Sodium 142, Potassium 3.8, Chloride 112 H, Carbon Dioxide 23.0, Anion Gap 7, BUN 15, Creatinine 0.81, Estim Creat Clear Calc 77.41, Est GFR (MDRD) Af Amer 120, Est GFR (MDRD) Non-Af 99, BUN/Creatinine Ratio 18.6, Glucose 103, Calcium 8.4 L Code Visit OBSV E&M: 99964 Observation care discharge
== END 2019-09-27 11:34 | disposition home or self-care (01) ==
LOC: ED 19:12 → PCU 19:47
PROVIDERS: Nurse Practitioner Family; Admitting Provider Family Medicine; Emergency Provider Emergency Medicine; PCP Family Medicine; Visit Provider Internal Medicine
DX: R07.89 Other chest pain (principal); I25.10 Atherosclerotic heart disease of native coronary artery without angina pectoris; I10 Essential (primary) hypertension; E78.5 Hyperlipidemia, unspecified; I73.9 Peripheral vascular disease, unspecified; F17.210 Nicotine dependence, cigarettes, uncomplicated; D64.9 Anemia, unspecified; R06.00 Dyspnea, unspecified; K21.9 Gastro-esophageal reflux disease without esophagitis; E66.9 Obesity, unspecified; E87.6 Hypokalemia; I71.4 Abdominal aortic aneurysm, without rupture; R94.31 Abnormal electrocardiogram [ECG] [EKG]; Z95.5 Presence of coronary angioplasty implant and graft; Z79.899 Other long term (current) drug therapy; Z79.02 Long term (current) use of antithrombotics/antiplatelets; Z68.34 Body mass index [BMI] 34.0-34.9, adult
CPT/HCPCS: 36415; 71045; 78452; 80048; 80061; 83735; 84484; 85025; 85027; 85730; 93005; 93017; 96360; 99218; 99251; 99285; 99406; A9500; J7030; A4216; G0378; G0463; J2785

== ENCOUNTER → 2019-10-15 14:34 | Outpatient (CLI) | payer MEDICARE, BC, SELFPAY ==
[2019-09-25 20:09] VITALS: BMI 33.0
--- NOTE | 2019-10-15 14:37 | CT_ITS ---
STUDY: LOW DOSE CT LUNG CANCER SCREENING REASON FOR EXAM: Male, 74 years old. LOW DOSE LUNG SCREENING H/O TOBACCO ABUSE RADIATION DOSAGE (If Supplied By Facility): CTDIvol = ( 4.02 ) mGy, DLP = ( 156.52 ) mGycm TECHNIQUE: No contrast was administered. Low dose technique was utilized (average mAS-38 and kVp 120). 1.25 mm axial source images with a slice interval of 1.25-mm were reconstructed in lung windows. 2.5 mm axial source images with a slice interval of 2.5-mm were reconstructed in lung windows. 5.0 mm axial source images with a slice interval of 5.0-mm were reconstructed in soft tissue windows. Nodule measured using lung windows on PACS and/or independent workstation with automated measurement of minimum and maximum diameter. Nodule measurement reported as average diameter rounded to the nearest whole number. Growth is defined as an increase ins size of greater than 1.5 mm. COMPARISON: CTA chest 02/19/2016. Heart and great vessels: Heart size normal. No aneurysm of the thoracic aorta. Dense calcific atherosclerosis of the thoracic aorta and its branches including the coronary arteries. Lungs, pleura: 7 x 6 x 11 mm TRV X AP X craniocaudad nodule in the right upper lobe, spiculated with more diffuse adjacent linear scarring, not appreciably changed compared to the previous study and is therefore category 2, benign appearing. No other nodules. Mild subpleural emphysema most prominent in the lung apices. No acute findings in the lungs. Central airways patent. Mediastinum: No adenopathy or mass or hematoma. Calcified subcarinal lymph nodes. Osseous:No fracture or acute osseous abnormality. Chest wall: No acute findings. Bilateral gynecomastia again demonstrated. Upper abdomen: No acute findings. Calcified granulomas in the liver. CT/Low Dose CT Lung Screening IMPRESSION: Lung RADS category 2, suggest continued annual screening. Mild emphysema, dense atherosclerosis including of the coronary arteries. IMPORTANT NOTES FOR USE: ACR Lung-RADS Version 1.0 Assessment Categories Release Date: November 22, 2013 Category: Coded 0-4 bases on nodule(s) with highest degree of suspicion. Negative screen is defined as categories 1 and 2; a positive screen is defined as categories 3 and 4. Category 3 and 4A nodules that are unchanged on interval CT should be coded as category 2, and individuals returned to screening in 12 months. Category 4X: Category 3 or 4 nodules with additional imaging findings that increase the suspicion of lung cancer, such as spiculation, GGN that doubles in size in 1 year, enlarged lymph notes, etc. Category Modifiers: S (significant finding unrelated to lung cancer) and C (prior history of treated lung cancer) may be added to the 0-4 Lung-RADS Electronically Signed: Robert Galicia, at 1:51 EDT Tel , Service support ,
== END ==
PROVIDERS: PCP Family Medicine; Referring Provider Family Medicine; Visit Provider Family Medicine
DX: Z87.891 Personal history of nicotine dependence (principal)
CPT/HCPCS: G0297

== ENCOUNTER 2019-12-26 16:54 | Emergency (ER) | payer MEDICARE, BC, SELFPAY ==
[2019-11-11 10:24] VITALS: BMI 33.1
[2019-12-26 16:55] VITALS: BP 157/74; PULSE 78; RESP 16; TEMP 37; O2SAT 99; BMI 32.8
--- NOTE | 2019-12-26 17:17 | CT_ITS ---
STUDY: CTA CHEST REASON FOR EXAM: Male, 74 years old. ? AAA, Rt flank pain. Hx of HTN and bowel resection RADIATION DOSAGE (If Supplied By Facility): CTDIvol = ( 13.37 ) mGy, DLP = ( 1039.93 ) mGycm TECHNIQUE: The examination was performed with the intravenous administration of Isovue 370 100ml. Post-processing of the angiographic images was performed, with multiplanar reformation and 3D reconstruction. Individualized dose optimization techniques were used for this CT. COMPARISON: CT chest dated 10/15/2019 FINDINGS: There is stable mild emphysematous changes with stable scarring in the lung apices. There are no pulmonary infiltrates or pleural effusions. There is no pneumothorax. There is no evidence of pulmonary embolus. There are atherosclerotic calcifications noted in the aorta. There is no evidence of thoracic aortic aneurysm or dissection. The heart and pericardium are within normal limits. There are coronary artery calcifications noted. There is no thoracic lymphadenopathy. The visualized thoracic osseous structures are intact. CT/CTA Chest W/WO Contrast IMPRESSION: No evidence of pulmonary embolus. No evidence of thoracic aortic aneurysm or dissection. Atherosclerosis and coronary artery disease. Stable emphysema with biapical scarring. No pulmonary infiltrates or pleural effusions. Electronically Signed: Rao Trotter, at 18:54 EDT Tel , Service support ,
--- NOTE | 2019-12-26 17:18 | CT_ITS ---
STUDY: CTA OF THE ABDOMINAL AORTA REASON FOR EXAM: Male, 74 years old. ? AAA, Rt flank pain. Hx of HTN and bowel resection RADIATION DOSAGE (If Supplied By Facility): CTDIvol = ( 13.37 ) mGy, DLP = ( 1039.93 ) mGycm TECHNIQUE: Axial CT angiography multi-detector data acquisition was obtained through the abdomen following intravenous administration of Isovue 370 100ml. Axial images and MIP images were reconstructed from the axial data set. Post-processing of the angiographic images was performed, with multiplanar reformation and 3D reconstruction. Individualized dose optimization techniques were used for this CT. COMPARISON: 09/22/2016 FINDINGS: There are no calcified gallstones present. There are calcified granulomata noted in the liver and the spleen. The pancreas and adrenal glands are within normal limits. There are bilateral renal cysts. There is no hydronephrosis. The visualized bowel demonstrates no evidence of obstruction. There are atherosclerotic calcifications noted in the abdominal aorta and its branches. There is no evidence of abdominal aortic aneurysm or dissection. There is no abdominal free air, free fluid or lymphadenopathy. There are no destructive osseous lesions. CT/CTA Abdomen W/WO Contrast IMPRESSION: No evidence of abdominal aortic aneurysm or dissection. Atherosclerosis. Bilateral renal cysts. Electronically Signed: Rao Trotter, at 18:55 EDT Tel , Service support ,
--- NOTE | 2019-12-26 17:21 | ED.VIS.GEN ---
History of Present Illness Chief Complaint: Flank Pain Informant: Patient Onset: Days - 2 days Context: Gradual Onset Timing: Intermittent Current Severity: Mild Maximum Severity: Moderate Narrative: Patient presents with a 2 to 3-day history of right-sided back pain. He states it is worse just below his shoulder blade on the right and extends down the right side. He does have a known history of aortic aneurysm and this does concern him. He is scheduled have an ultrasound performed in the next 1 or 2 days. It has not been checked in the last year. Patient denies pain radiating into his jaw or arm. He has no paresthesias. He has no GI or urinary complaints. Past Medical History - Allergies and Home Meds Allergies/Adverse Reactions: Allergies etodolac [Etodolac] Allergy (Verified 12/26/19 16:55) Unknown pregabalin [From Lyrica] Allergy (Verified 12/26/19 16:55) Unknown Primary Care Physician: Rodo Zamorano MD [Primary Care Provider] - Surgical History: angioplasty, appendectomy, - - PCI x2, back surgery, bilateral shoulder surgery, bilateral carotid endarterectomy, bowel resection and appendectomy. Smoking Status: Current every day smoker - Family History Maternal Family History: Family History (Last Reviewed 11/11/19 @ 10:[address] Shahram Perry MD) Brother Hypertension Sister Hypertension Family History: Reports: - - Patient notes a maternal family history of lung cancer with a prior history of tobacco usage. Paternal Family History: Family History (Last Reviewed 11/11/19 @ 10:[address] Shahram Perry MD) Brother Hypertension Sister Hypertension Family History: Reports: - - Patient notes a paternal family history of leukemia. Sibling Family History: Family History (Last Reviewed 11/11/19 @ 10:[address] Shahram Perry MD) Brother Hypertension Sister Hypertension Family History: Reports: Hypertension Review of Systems General: Denies: Chills, Fever Eyes: Denies: Visual changes - bilaterally ENT: Denies: Bilateral ear pain Cardiovascular: Denies: Chest pain Respiratory: Denies: Dyspnea, Cough Gastrointestinal: Denies: Abdominal pain, Nausea, Vomiting, Diarrhea Genitourinary: Denies: Dysuria, Hematuria Musculoskeletal: Reports: Back pain Hematologic: Denies: Easy bruising, Easy bleeding Allergy: Denies: Uticaria Physical Exam Vital Signs/Narrative: Vital Signs Temp Pulse Resp BP Pulse Ox 12/26/19 16:55 98.6 F 78 16 157/74 H 99 Inital Vital Signs reviewed: Yes General: Well nourished, Well developed Head: Normocephalic ENT: Moist mucous membranes Neck: Supple Cardiovascular: Regular rate, Regular rhythm Respiratory: No distress, CTA bilaterally Abdomen: Soft, Nontender Back: CVA tenderness, - - No midline tenderness. Skin: Normal color Neurological: Alert, Oriented x3 Psychological: Normal affect Diagnostic/Tx/Re-eval Impressions Chest CTA 12/26/19 17:17 IMPRESSION: No evidence of pulmonary embolus. No evidence of thoracic aortic aneurysm or dissection. Atherosclerosis and coronary artery disease. Stable emphysema with biapical scarring. No pulmonary infiltrates or pleural effusions. Electronically Signed: Rao Sergo, at 18:54 EDT Tel , Service support , Abdomen CTA 12/26/19 17:18 IMPRESSION: No evidence of abdominal aortic aneurysm or dissection. Atherosclerosis. Bilateral renal cysts. Electronically Signed: Rao Trotter, at 18:55 EDT Tel , Service support , 12/26/19 17:17 CTA Chest W/WO Contrast [CT] Stat 12/26/19 17:18 CTA Abdomen W/WO Contrast [CT] Stat Laboratory Results 12/26/19 12/26/19 12/26/19 17:30 17:30 17:40 WBC 6.8 RBC 3.97 L Hgb 11.2 L Hct 35.0 L MCV 88.2 MCH 28.2 MCHC 32.0 RDW Std Deviation 46.9 H RDW Coeff of [place]u 14.6 Plt Count 224 MPV 8.8 Immature Gran % (Auto) 0.300 Neut % (Auto) 53.0 Lymph % (Auto) 34.7 [place] % (Auto) 6.8 Eos % (Auto) 4.3 Baso % (Auto) 0.9 Absolute Neuts (auto) 3.6 Absolute Lymphs (auto) 2.34 Nucleated RBC % 0 Sodium 144 Potassium 3.5 Chloride 110 H Carbon Dioxide 29.0 Anion Gap 5 BUN 13 Creatinine 0.75 Estim Creat Clear Calc 62.70 Est GFR (MDRD) Af Amer 132 Est GFR (MDRD) Non-Af 109 BUN/Creatinine Ratio 17.4 Glucose 122 H Calcium 8.8 Total Bilirubin 0.60 Direct Bilirubin 0.16 AST 16 ALT 26 Alkaline Phosphatase 45 Total Protein 7.1 Albumin 3.6 Globulin 3.5 Urine Color Yellow Urine Clarity Clear Urine pH 7.0 Ur Specific [place] 1.015 Urine Protein 30 H Urine Glucose (UA) Normal Urine Ketones 5 H Urine Occult Blood 10 H Urine Nitrite Negative Urine Bilirubin Negative Urine Urobilinogen 1 H Ur Leukocyte Esterase Negative Urine RBC 0 SEEN Urine WBC 0 SEEN Ur Squamous Epith Cells 0 SEEN Amorphous Sediment 1+ Urine Bacteria 0 SEEN Urine Mucus 0 SEEN - Medical Decision Making Patient was given morphine and Zofran here for pain control. Test results are discussed with him. He is reassured with these findings. He will follow-up for further testing this week as already scheduled. ED Disposition - Plan for ED Patient: Disposition: Home or Assisted Living Diagnosis: Flank pain Instructions: ED Flank Pain Uncertain Cause Referrals: Rodo Zamorano MD [Primary Care Provider] - 1 Week if not improving
[2019-12-26] MEDS: Morphine 4 MG/ML Syringe IV (17:31)
[2019-12-26] MEDS: Ondansetron 4 MG/2 ML Vial IV (17:31)
[2019-12-26 17:38] LABS: Absolute Lymphocyte Count 2.34 X10^3/uL (0.83-4.51); Absolute Neutrophil Count 3.6 X10^3/uL (2.0-7.7); Basophil# 0.06 X10^3/uL; Basophil% 0.9 % (0-1); Eosinophil# 0.29 X10^3/uL; Eosinophils% 4.3 % (0-5); Hemoglobin 11.2 g/dL (13.0-16.5); Lymphocyte # 2.34 X10^3/ul (4.0); Lymphocyte % 34.7 % (19-41); Mean Corpuscular Hgb 28.2 pg (27.0-32.0); Mean Corpuscular Volume 88.2 fL (80-94); Mean Platelet Vol. 8.8 fl (6.2-12.0); Monocyte# 0.46 X10^3/uL; Monocyte% 6.8 % (0-10); NRBC Flagged by Analyzer 0 % (0-5); Neutrophil # 3.58 X10^3/uL (2.7-7.7); Platelet Count 224 K/mm3 (150-450); RBC Distribution Width CV 14.6 % (11.6-14.6); RBC Distribution Width SD 46.9 fl (35.1-43.9); Red Blood Count 3.97 M/mm3 (4.6-6.2); White Blood Count 6.8 K/mm3 (4.4-11.0)
[2019-12-26 17:42] LABS: Bacteria 0 SEEN /hpf (None Seen); Mucous, Urine 0 SEEN /hpf (<or=2+); Red Blood Cells-Urine 0 SEEN /hpf (0-5); Squamous Epithelial Cells - UA 0 SEEN /hpf (0-5); White Blood Cells 0 SEEN /hpf (0-5)
[2019-12-26 17:48] LABS: Color, Urine Yellow (Yellow); Glucose, Dipstick Normal (Normal); Ketone-Dipstick 5 mg/dl (Negative); Leukocyte Esterase-Dipstick Negative /ul (Negative); Nitrite-Dipstick Negative (Negative); Occult Blood-Urine 10 /ul (Negative); Protein-Dipstick 30 mg/dl (Negative); Specific Gravity, Urine 1.015 (1.002-1.030); Urine Bilirubin Dipstick Negative (Negative); Urine Clarity Clear (Clear); Urine Urobilinogen 1 mg/dl (Normal)
[2019-12-26 17:55] LABS: AST(SGOT) 16 U/L (15-37); Alanine Aminotransfer ALT/SGPT 26 U/L (16-61); Albumin, Serum 3.6 g/dL (3.2-5.0); Alkaline Phosphatase 45 U/L (45-117); Anion Gap 5 (5-15); BUN 13 mg/dL (7-18); BUN/Creat Ratio 17.4 RATIO (10-20); Bilirubin, Direct 0.16 mg/dL (0.00-0.30); Calcium,Total 8.8 mg/dL (8.5-10.1); Chloride 110 mmol/L (98-107); Creatinine, Serum 0.75 mg/dL (0.70-1.30); EST Glomerular Filtration Rate 109 mL/min (>60); Est Glom Filt Rate - Afr Amer 132 mL/min (>60); Globulin 3.5 g/dL (2.2-4.2); Glucose 122 mg/dL (74-106); Potassium 3.5 mmol/L (3.5-5.1); Protein, Total 7.1 g/dL (6.4-8.2); Sodium Level 144 mmol/L (136-145)
[2019-12-26 18:05] VITALS: BP 170/57; PULSE 67; RESP 15
[2019-12-26 18:20] LABS: Amorphous Sediment 1+
[2019-12-26 19:25] VITALS: BP 170/57; PULSE 72; RESP 15
== END 2019-12-26 19:27 | disposition home or self-care (01) ==
PROVIDERS: Emergency Provider Emergency Medicine; PCP Family Medicine
DX: R10.9 Unspecified abdominal pain (principal); F17.200 Nicotine dependence, unspecified, uncomplicated
CPT/HCPCS: 71275; 74175; 80048; 80076; 81001; 85025; 96374; 96375; 99283; Q9967; A4216; J2405

== ENCOUNTER → 2019-12-28 07:46 | Outpatient (CLI) | payer MEDICARE, BC, SELFPAY ==
[2019-11-11 10:24] VITALS: BMI 33.1
[2019-12-26 16:55] VITALS: BMI 32.8
--- NOTE | 2019-12-28 07:47 | CDU_ITS ---
Reason For Study: Carotid stenosis Rt. Velocities/BP Lt. Velocities/BP Prox CCA 64.3 cm/sec. Prox CCA 70.4 cm/sec. Mid CCA 94.3/9.5 cm/sec. Mid CCA 77.7/7.7 cm/sec. Dist CCA 85.2/8.2 cm/sec. Dist CCA 76.5/7.7 cm/sec. Prox ICA 95/13.8 cm/sec. Prox ICA 124.7/18.8 cm/sec. Mid ICA 152.1/20.4 cm/sec. Mid ICA 189.4/27 cm/sec. Dist ICA 138.9/13.8 cm/sec. Dist ICA 158.7/18.2 cm/sec. Rt. ICA/CCA = 1.8. Lt. ICA/CCA = 2.5. Prox ECA 346.3 cm/sec. Prox ECA 132.1 cm/sec. Rt. Vert. 156.5/11.6 cm/sec. Lt. Vert. 72.8/9 cm/sec. Right Extracranial There is heterogeneous, irregular atherosclerotic plaque noted in the right common carotid artery. There is heterogeneous, smooth atherosclerotic plaque noted in the right internal carotid artery. There is homogeneous, irregular atherosclerotic plaque noted in the right external carotid artery. Antegrade flow is noted in the right vertebral artery. Left Extracranial There is heterogeneous, irregular atherosclerotic plaque noted in the left common carotid artery. There is heterogeneous, smooth atherosclerotic plaque noted in the left internal carotid artery. There is intimal thickening but no significant atherosclerotic plaque noted in the left external carotid artery. Antegrade flow is noted in the left vertebral artery. Procedure Carotid Duplex [id number]. Exam performed in department. Interpretation Summary Postoperative changes right carotid bulb and proximal internal carotid artery 50-69% stenosis right internal carotid >50% stenosis right external carotid Postoperative changes left carotid bulb and proximal internal carotid 50-69% stenosis left internal carotid <50% stenosis left external carotid Patent, antegrade bilateral vertebrals No change from 12/18/18 Ordering Physician: Avery Horn Referring Physician: Rodo Zamorano Performed By: Juliann Benjamin RVT
== END ==
PROVIDERS: PCP Family Medicine; Referring Provider Surgery; Visit Provider Surgery
DX: I65.23 Occlusion and stenosis of bilateral carotid arteries (principal)
CPT/HCPCS: 93880

== ENCOUNTER → 2020-01-25 16:53 | Outpatient (CLI) | payer MEDICARE, BC, SELFPAY ==
[2020-01-04 13:31] VITALS: BMI 33.0
[2020-01-25 18:47] LABS: Anion Gap 6 (5-15); BUN 14 mg/dL (7-18); Calcium,Total 8.4 mg/dL (8.5-10.1); Chloride 104 mmol/L (98-107); Creatinine, Serum 1.56 mg/dL (0.70-1.30); EST Glomerular Filtration Rate 46 mL/min (>60); Est Glom Filt Rate - Afr Amer 56 mL/min (>60); Glucose 109 mg/dL (74-106); Potassium 3.4 mmol/L (3.5-5.1); Sodium Level 136 mmol/L (136-145)
== END ==
PROVIDERS: PCP Family Medicine; Referring Provider Family Medicine; Visit Provider Family Medicine
DX: R19.7 Diarrhea, unspecified (principal)
CPT/HCPCS: 36415; 80048

== ENCOUNTER → 2020-02-10 12:23 | Outpatient (CLI) | payer MEDICARE, BC, SELFPAY ==
[2020-01-04 13:31] VITALS: BMI 33.0
[2020-02-10 15:48] LABS: ALB/GLOB Ratio 0.8 RATIO (0.9-2.4); AST(SGOT) 56 U/L (15-37); Alanine Aminotransfer ALT/SGPT 50 U/L (16-61); Alkaline Phosphatase 31 U/L (45-117); Anion Gap 7 (5-15); BUN 11 mg/dL (7-18); BUN/Creat Ratio 12.6 RATIO (10-20); Calcium,Total 8.3 mg/dL (8.5-10.1); Chloride 108 mmol/L (98-107); Creatinine, Serum 0.88 mg/dL (0.70-1.30); EST Glomerular Filtration Rate 90 mL/min (>60); Est Glom Filt Rate - Afr Amer 109 mL/min (>60); Globulin 3.6 g/dL (2.2-4.2); Glucose 100 mg/dL (74-106); Protein, Total 6.6 g/dL (6.4-8.2); Sodium Level 138 mmol/L (136-145)
== END ==
PROVIDERS: PCP Family Medicine; Visit Provider Family Medicine
DX: R19.7 Diarrhea, unspecified (principal)
CPT/HCPCS: 36415; 80053

== ENCOUNTER → 2020-02-11 11:21 | Outpatient (CLI) | payer MEDICARE, BC, SELFPAY ==
[2020-01-04 13:31] VITALS: BMI 33.0
== END ==
PROVIDERS: PCP Family Medicine; Referring Provider Family Medicine; Visit Provider Family Medicine
DX: R19.7 Diarrhea, unspecified (principal)
CPT/HCPCS: 87493; 87506

== ENCOUNTER 2020-02-18 07:32 | Day surgery (SDC) | payer MEDICARE, BC, SELFPAY ==
[2020-01-04 13:31] VITALS: BMI 33.0
--- NOTE | 2020-02-17 08:30 | IMM_PTH ---
PATIENT: JEROME KRUGER LOC: [facility] U#:[id number] AGE/SX: 74/M ROOM: RE02/18/[address]: Dr. Avery Horn MD : 1945 BED: DIS: 02/18/2020 SPEC #: [id number] RECD: 02/18/20 12:25 STATUS: KAR CHITO #: [id number] CHELO: 02/17/20 08:[address]: Avery Horn DEPT: IMMUNOHISTOCHEMISTRY RECD BY: Ya Roca ENTERED: 02/18/20 12:25 SP TYPE: IMMUNO OTHR DR: Dr. Rodo Zamorano MD Tissues: A - Stomach, NOS Procedures: H Pylori (initial) KI-67 (add) P53 (add) PHYSICIAN & INSTITUTION [place] [address] SPECIMEN INFORMATION: Tissue Source: A - Antrum biopsy Clinical Info: Anemia, history of colon polyps Specimen Number: [id number] CPT code: 91595, 67612 x2 METHODOLOGY: Deparaffinized sections of prefer/formalin-fixed tissue or PAP/DQ stained slides are incubated with monoclonal/polyclonal antibodies/oligonucleotide probes. Localization is made via biotin free immunoperoxidase method. Appropriate controls are performed and reacted as expected. Results on target cell population are indicated in the following table: RESULTS: ANTIBODY / CLONE RESULT Block A H Pylori (polyclonal) negative P53 (DO-7) negative Ki-67 (30-9) positive, low These tests were developed and their performance characteristics determined by [facility]. They may not have been cleared or approved by the U.[place]. Food and Drug Administration. The FDA has determined that such clearance or approval is not necessary. The above immunohistochemical/dualISH markers are ordered and reviewed by the pathologist. INTERPRETATION: A. Antrum, biopsy: No evidence of dysplasia. AM:eugenio 02/22/20
[2020-02-18] VITALS (9 sets, daily range): BP systolic 125–189; BP diastolic 47–70; PULSE 60–82; RESP 16–18; TEMP 35.9–36.3; O2SAT 94–100; BMI 30.4
[2020-02-18] MEDS: Lactated Ringers 1,000 ML 100 ML IV (07:55)
--- NOTE | 2020-02-18 07:55 | PCM.HP.BLA ---
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 Is patient in pain?: No Allergies etodolac [Etodolac] Allergy (Verified 01/04/20 13:32) Unknown pregabalin [From Lyrica] Allergy (Verified 01/04/20 13:32) Unknown Medications nitroglycerin 0.4 mg sublingual tablet 0.4 mg SUBLINGUAL Q5M PRN #25 tab 12/09/17 [Rx Confirmed 01/04/20] clopidogrel 75 mg tablet 75 mg PO DAILY #90 tab 05/24/19 [Rx Confirmed 01/04/20] isosorbide mononitrate 30 mg tablet,extended release 24 hr 30 mg PO DAILY #90 tab 06/17/19 [Rx Confirmed 01/04/20] Amlodipine [Norvasc] 10 mg PO DAILY tab 09/27/19 [Rx Confirmed 01/04/20] atorvastatin 80 mg tablet 80 mg PO QHS #90 tab 10/07/19 [Rx Confirmed 01/04/20] benazepril 40 mg tablet 40 mg PO DAILY tab 11/11/19 [History Confirmed 01/04/20] esomeprazole magnesium 40 mg capsule,delayed release 40 mg PO DAILY #90 cap 12/09/19 [Rx Confirmed 01/04/20] [facility] Medical History Atherosclerotic heart disease of [place] coronary artery without angina pectoris (Chronic) Bilateral carotid artery stenosis (Chronic) AAA (abdominal aortic aneurysm) (Chronic) PVD (peripheral vascular disease) (Chronic) Essential (primary) hypertension (Chronic) Hyperlipemia (Chronic) Nicotine dependence (Chronic) Claudication (Chronic) Obesity (Chronic) Dyspnea (Resolved) Shortness of breath (Resolved) Aortic stenosis (Inactive) CAD (coronary artery disease) (Inactive) Surgical History History of coronary artery stent placement (Resolved 03/07/10) History of appendectomy (Resolved) History of bowel resection (Resolved) History of left heart catheterization (Resolved 03/19/19) History of left-sided carotid endarterectomy (Resolved 2005) History of right-sided carotid endarterectomy (Resolved 2012) History of shoulder surgery (Resolved) Family History Brother Hypertension Sister Hypertension Social History (Updated 01/04/20 @ 14:[address] Avery Horn MD) Smoking Status: Current every day smoker alcohol intake: never substance use type: does not use caffeine: No what type of physical activity do you participate in: walking frequency: daily HPI HPI HPI: JEROME KRUGER, is a 74 M who presents to the office today for ongoing surgical care regarding extracranial carotid artery occlusive disease. He is status post remote bilateral carotid endarterectomy. 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 His most recent carotid duplex exam as below showing 50 to 69% bilateral internal carotid stenosis. Fortunately this is unchanged from a year prior. Upon further review it became evident that the patient was seen in the emergency room on December 26, 2019 complaining of severe back pain. He underwent a CTA of the abdomen and chest. There was no aortic aneurysm or thoracic aneurysm. There was no pulmonary embolus. There was no dissection. It is however of additional note that during that visit was detected that he is running a mild anemia. On December 25 his white count was 6.8 with a hemoglobin 11.2 hematocrit 35 platelet count 224,000. BUN is 13 and creatinine 0.75. On additional history is evident that remotely he had peptic ulcer disease and it sounds like he was treated for H. pylori by Dr. Bernadine Robin. He also has had a previous right colectomy for his account which was a unresectable colon polyp. He does not believe that he has had a colonoscopy for 10 years [facility] [address] [place] [address]. [place] [address] Carotid Duplex Ultrasound 12/28/19 0803 MR#: [id number] Name:JEROME KRUGER JRep #:[id number] : 1945 74From:Avery Horn MD Attending Dr: BO Moyertatus: REG CLI Ordering Dr: Avery Horn MDDate: 12/28/19 Location:CVSSex: Admitted: Reason For Study: Carotid stenosis Rt. Velocities/BP Lt. Velocities/BP Prox CCA 64.3 cm/sec. Prox CCA 70.4 cm/sec. Mid CCA 94.3/9.5 cm/sec. Mid CCA 77.7/7.7 cm/sec. Dist CCA 85.2/8.2 cm/sec. Dist CCA 76.5/7.7 cm/sec. Prox ICA 95/13.8 cm/sec. Prox ICA 124.7/18.8 cm/sec. Mid ICA 152.1/20.4 cm/sec. Mid ICA 189.4/27 cm/sec. Dist ICA 138.9/13.8 cm/sec. Dist ICA 158.7/18.2 cm/sec. Rt. ICA/CCA = 1.8. Lt. ICA/CCA = 2.5. Prox ECA 346.3 cm/sec. Prox ECA 132.1 cm/sec. Rt. Vert. 156.5/11.6 cm/sec. Lt. Vert. 72.8/9 cm/sec. Right Extracranial There is heterogeneous, irregular atherosclerotic plaque noted in the right common carotid artery. There is heterogeneous, smooth atherosclerotic plaque noted in the right internal carotid artery. There is homogeneous, irregular atherosclerotic plaque noted in the right external carotid artery. Antegrade flow is noted in the right vertebral artery. Left Extracranial There is heterogeneous, irregular atherosclerotic plaque noted in the left common carotid artery. There is heterogeneous, smooth atherosclerotic plaque noted in the left internal carotid artery. There is intimal thickening but no significant atherosclerotic plaque noted in the left external carotid artery. Antegrade flow is noted in the left vertebral artery. Procedure Carotid Duplex 02700. Exam performed in department. Interpretation Summary Postoperative changes right carotid bulb and proximal internal carotid artery 50-69% stenosis right internal carotid >50% stenosis right external carotid Postoperative changes left carotid bulb and proximal internal carotid 50-69% stenosis left internal carotid <50% stenosis left external carotid Patent, antegrade bilateral vertebrals No change from 12/18/18 Ordering Physician: Avery Horn Referring Physician: Rodo Zamorano Performed By: Juliann Benjamin RVT 12/28/19 1146 Date Avery Horn MD [facility] [address] [place] [address] CTA Abdomen W/WO Contrast MR#: [id number] Name: JEROME KRUGER [facility] #:[id number] : 1945M 74 From: Rao Trotter MD PCP:Dr. Rodo Zamorano MD Status:REG ER Study:CTA Abdomen W/WO Contrast Date of Exam:12/26/19 Exam#[id number] Ordering Dr: Hanh Kim MD STUDY: CTA OF THE ABDOMINAL AORTA REASON FOR EXAM: Male, 74 years old. ? AAA, Rt flank pain. Hx of HTN and bowel resection RADIATION DOSAGE (If Supplied By Facility): CTDIvol = ( 13.37 ) mGy, DLP = ( 1039.93 ) mGycm TECHNIQUE: Axial CT angiography multi-detector data acquisition was obtained through the abdomen following intravenous administration of Isovue 370 100ml. Axial images and MIP images were reconstructed from the axial data set. Post-processing of the angiographic images was performed, with multiplanar reformation and 3D reconstruction. Individualized dose optimization techniques were used for this CT. COMPARISON: 09/22/2016 FINDINGS: There are no calcified gallstones present. There are calcified granulomata noted in the liver and the spleen. The pancreas and adrenal glands are within normal limits. There are bilateral renal cysts. There is no hydronephrosis. The visualized bowel demonstrates no evidence of obstruction. There are atherosclerotic calcifications noted in the abdominal aorta and its branches. There is no evidence of abdominal aortic aneurysm or dissection. There is no abdominal free air, free fluid or lymphadenopathy. There are no destructive osseous lesions. CT/CTA Abdomen W/WO Contrast IMPRESSION: No evidence of abdominal aortic aneurysm or dissection. Atherosclerosis. Bilateral renal cysts. Electronically Signed: Rao Trotter, at 18:55 EDT Tel , Service support , HPI HPI HPI: JEROME KRUGER, is a 74 M who presents to the office today for Exam Const General: cooperative, comfortable, no acute distress Nutritional Appearance: obese Orientation: alert, awake HENMT Other: Well-healed bilateral carotid neck incisions, 3+ carotid pulses, 2/6 bruits bilaterally Resp Effort & Inspection: normal respiratory effort Auscultation: clear to auscultation bilaterally Cardio Rate: regular rate Rhythm: regular rhythm GI Palpation: soft Auscultation: normal bowel sounds Other: Overweight, well-healed supraumbilical midline incision Skin General: no rashes or lesions noted Neuro General: alert, awake Extrem General: no calf tenderness Psych Affect: normal affect Assessment & Plan Problems 1. Carotid stenosis, bilateral I65.23 2. Iron deficiency anemia, unspecified iron deficiency anemia type D50.9 Plan 50 to 69% bilateral extracranial internal carotid artery stenosis which is asymptomatic and a history of bilateral carotid endarterectomies. Fortunately his carotid duplex imaging is stable over the past year. Work-up regarding abdominal and chest pain showed no aortic or thoracic aneurysm. During that very recent work-up hours he was detected is having a mild anemia. He reports both a remote history of peptic ulcer disease as well as non-colonoscopically resectable colon polyp requiring a right colectomy. I propose for him a esophagogastroduodenoscopy with possible biopsy and colonoscopy with possible biopsy or polypectomy is indicated. He is aware of the technique, benefit, risk of alternatives. He is interested in having us assist and pursue that with him. Regarding his carotid duplex exam I recommend further carotid duplex imaging at 1 year and surgical follow-up at that time as well. He is aware that he is presenting during and that the [facility] is reporting a low local incidence. I appreciate the ongoing opportunity of assisting with his surgical care Cc: Dr. Rodo Horn M.D., F.A.C.S. Orders Orders: Carotid Duplex Ultrasound 01/03/21 I65.23 Coding Level of Care Code Off vis,est,level 3 Diagnoses Carotid stenosis, bilateral I65.23 Iron deficiency anemia, unspecified iron deficiency anemia type D50.9 ??Anemia type: iron deficiency ??Iron deficiency anemia type: unspecified iron deficiency I have re-examined the patient. There are no clinical changes since date of exam. Procedure Criteria Procedure Type: Elective COVID Risk Discussion: The surgeon/proceduralist and patient have discussed in detail the risk of exposure to and/or potential harm posed by the COVID-19 virus with having a surgery/procedure at this time versus the risk of delaying the surgery/procedure. It is not possible to know either the risk of delaying the surgery or procedure or chance of getting an infection with perfect accuracy, but a joint decision was made between the patient and the surgeon/proceduralist to proceed at this time with the scheduled surgery/procedure as indicated on the consent form.
--- NOTE | 2020-02-18 08:30 | EGD_PTH ---
PATIENT: JEROME KRUGER LOC: [facility] U#:[id number] AGE/SX: 74/M ROOM: RE02/18/[address]: Dr. Avery Horn MD : 1945 BED: DIS: 02/18/2020 SPEC #: [id number] RECD: 02/18/20 10:03 STATUS: KAR CHITO #: [id number] CHELO: 02/18/20 08:[address]: Avery Horn DEPT: SURGICAL PATHOLOGY RECD BY: Elmer Blue ENTERED: 02/18/20 10:46 SP TYPE: EGD BIOPSY OT DR: Dr. Rodo Zamorano MD Tissues: A - Gastric mucous membrane B - Esophageal mucous membrane C - Transverse colon D - COLON BIOPSY E - Descending colon F - Descending colon G - Descending colon H - Sigmoid colon biopsy Procedures: Surgery Specimen Level IV HEADER OPERATION: [place] PRE-[place] DIAGNOSIS: Anemia and history of colon polyps TISSUE SUBMITTED: A - Antrum biopsy for H. pylori and path, B - Distal esophagus biopsy, C - Biopsy of mid transverse colon polyp, D - Biopsy of splenic flexure polyps, E - Biopsy of proximal descending colon polyps, F - Biopsy of mid descending polyp and snare of three polyps, G - Distal descending polyps x2, H - Proximal sigmoid polyps MICROSCOPIC DIAGNOSIS A. Gastric antrum, biopsy: Mild chronic gastritis. Intestinal metaplasia. No evidence of dysplasia. See comment. B. Distal esophagus, biopsy: Fragments of benign squamous mucosa. No evidence of inflammation. C. Mid transverse colon polyp, biopsy: Fragments of tubular adenoma. D. Polyps at splenic flexure, biopsy: Fragments of tubular adenoma. E. Proximal descending colon polyps, biopsy: Fragments of tubular adenoma. F. Mid descending colon polyps, biopsy: Fragments of tubular adenoma. G. Distal descending colon polyps, biopsy: Fragments of tubular adenoma. H. Proximal sigmoid polyps, biopsy: Fragments of tubular adenoma. AM:eugenio 02/21/20 COMMENT A. The results of immunohistochemistry for Helicobacter pylori will be reported separately ([id number]). Immunohistochemistry ([id number]) supports the above diagnosis. MICROSCOPIC DESCRIPTION Slides are reviewed. GROSS DESCRIPTION A - Received in fixative is one container labeled with the patient's name and designated antrum biopsy. The specimen consists of one irregular fragment of light dickson soft tissue that measures 0.4 x 0.2 x 0.1 cm. The specimen is totally submitted in one cassette. B - Received in fixative is one container labeled with the patient's name and designated distal esophagus biopsy. The specimen consists of two irregular fragments of light dickson soft tissue that in aggregate measure 0.5 x 0.4 x 0.1 cm. The specimen is totally submitted in one cassette. C - Received in fixative is one container labeled with the patient's name and designated biopsy of mid transverse colon polyp. The specimen consists of multiple irregular fragments of light dickson soft tissue that in aggregate measure 1 x 0.2 x 0.1 cm. The specimen is totally submitted in one cassette. D - Received in fixative is one container labeled with the patient's name and designated biopsy of splenic flexure polyp. The specimen consists of multiple irregular fragments of light dickson soft tissue that in aggregate measure 1 x 0.3 x 0.1 cm. The specimen is totally submitted in one cassette. E - Received in fixative is one container labeled with the patient's name and designated biopsy of proximal descending polyp. The specimen consists of multiple irregular fragments of light dickson soft tissue that in aggregate measure 6 x 6 x 0.2 cm. The specimen is totally submitted in one cassette. F - Received in fixative is one container labeled with the patient's name and designated biopsy of mid descending polyp and snare of three polyps. The specimen consists of multiple irregular fragments of light dickson soft tissue that in aggregate measure 2 x 0.5 x 0.1 cm. The specimen is totally submitted in one cassette. G - Received in fixative is one container labeled with the patient's name and designated distal descending polyps biopsy. The specimen consists of multiple irregular fragments of dickson-pink polyps measuring 2 x 2 x 0.3 cm. The specimen is totally submitted in one cassette. H - Received in fixative is one container labeled with the patient's name and designated proximal sigmoid polyp. The specimen consists of multiple irregular fragments of light dickson soft tissue that in aggregate measure 1 x 0.4 x 0.1 cm. The specimen is totally submitted in one cassette. / SJ:eugenio 02/18/20 TC:3 CPT: 82702 x8
--- NOTE | 2020-02-18 09:42 | OP.CCLET_ITS ---
02/18/2020 Rodo Zamorano MD [address] [id number] Re : Upper GI endoscopy procedure for Aram Alvarenga Dear Dr. Zamorano This procedure was performed on Tuesday, February 18, 2020. My impressions and recommendations are as follows: Impressions : - Reflux esophagitis. Biopsied. - Small hiatal hernia. - Chronic gastritis. Biopsied. - Normal examined duodenum. Recommendations : - Await pathology results. - Repeat upper endoscopy. - Discharge patient to home. - Resume previous diet. - Continue present medications. - Telephone my office for pathology results in 1 week. My findings are described in the full procedure note, which is enclosed. If I can be of further assistance, please feel free to contact me at Doctor phone number(s): Work: . Sincerely, Avery Horn MD 02/18/2020 9:42:22 AM This report has been signed electronically.
--- NOTE | 2020-02-18 09:42 | OP.EGD_ITS ---
Patient Name: Aram Alvarenga Procedure Date: 02/18/2020 8:36 AM Date of : 1945 Age: 74 Procedure: Upper GI endoscopy Indications: Iron deficiency anemia Providers: Avery Horn MD Referring MD: Rodo Zamorano MD Medicines: See the Anesthesia note for documentation of the administered medications Complications: No immediate complications. Procedure: Pre-Anesthesia Assessment: - Prior to the procedure, a History and Physical was performed, and patient medications and allergies were reviewed. The patient's tolerance of previous anesthesia was also reviewed. The risks and benefits of the procedure and the sedation options and risks were discussed with the patient. All questions were answered, and informed consent was obtained. Prior Anticoagulants: The patient has taken Plavix (clopidogrel), last dose was 1 day prior to procedure. ASA Grade Assessment: III - A patient with severe systemic disease. After reviewing the risks and benefits, the patient was deemed in satisfactory condition to undergo the procedure. After obtaining informed consent, the endoscope was passed under direct vision. Throughout the procedure, the patient's blood pressure, pulse, and oxygen saturations were monitored continuously. The gastroscope was introduced through the mouth, and advanced to the second part of duodenum. The upper GI endoscopy was accomplished without difficulty. The patient tolerated the procedure well. Scope In: 8:36:48 AM Scope Out: 8:42:04 AM Total Procedure Duration Time 0 hours 5 minutes 16 seconds Findings: Esophagitis with no bleeding was found 44 cm from the incisors. Biopsies were taken with a cold forceps for histology. A small hiatal hernia was present. Diffuse mild inflammation was found in the gastric antrum. Biopsies were taken with a cold forceps for histology. The examined duodenum was normal. Impression: - Reflux esophagitis. Biopsied. - Small hiatal hernia. - Chronic gastritis. Biopsied. - Normal examined duodenum. Recommendation: - Await pathology results. - Repeat upper endoscopy. - Discharge patient to home. - Resume previous diet. - Continue present medications. - Telephone my office for pathology results in 1 week. Procedure Code(s): --- Professional --- 21067, Esophagogastroduodenoscopy, flexible, transoral; with biopsy, single or multiple Diagnosis Code(s): --- Professional --- K21.0, Gastro-esophageal reflux disease with esophagitis K44.9, Diaphragmatic hernia without obstruction or gangrene K29.50, Unspecified chronic gastritis without bleeding D50.9, Iron deficiency anemia, unspecified CPT copyright 2017 [employer]. All rights reserved. The codes documented in this report are preliminary and upon supervisor elementary education review may be revised to meet current compliance requirements. Avery Horn MD 02/18/2020 9:42:22 AM This report has been signed electronically. Number of Addenda: 0 Note Initiated On: 02/18/2020 8:36 AM
--- NOTE | 2020-02-18 09:53 | OP.COLON_ITS ---
Patient Name: Aram Alvarenga Procedure Date: 02/18/2020 8:42 AM Date of : 1945 Age: 74 Procedure: Colonoscopy Indications: Iron deficiency anemia Providers: Avery Horn MD Referring MD: Rodo Zamorano MD Medicines: See the Anesthesia note for documentation of the administered medications Patient Profile: Last Colonoscopy: more than 10 years ago. Complications: No immediate complications. Procedure: Pre-Anesthesia Assessment: - Prior to the procedure, a History and Physical was performed, and patient medications and allergies were reviewed. The patient's tolerance of previous anesthesia was also reviewed. The risks and benefits of the procedure and the sedation options and risks were discussed with the patient. All questions were answered, and informed consent was obtained. Prior Anticoagulants: The patient has taken Plavix (clopidogrel), last dose was 1 day prior to procedure. ASA Grade Assessment: III - A patient with severe systemic disease. After reviewing the risks and benefits, the patient was deemed in satisfactory condition to undergo the procedure. After I obtained informed consent, the scope was passed under direct vision. Throughout the procedure, the patient's blood pressure, pulse, and oxygen saturations were monitored continuously. The pediatric colonoscope was introduced through the anus and advanced to the ileocolonic anastomosis. The colonoscopy was unusually difficult due to multiple polyps. The patient tolerated the procedure well. The quality of the bowel preparation was fair. Ileocolonic anastomosis were photographed. Scope In: 8:45:32 AM Scope Withdrawal Time 0 hours 44 minutes 40 seconds Scope Out: 9:37:10 AM Total Procedure Duration Time 0 hours 51 minutes 38 seconds Findings: Hemorrhoids were found on perianal exam. A 5 mm polyp was found in the mid transverse colon. The polyp was sessile. The polyp was removed with a cold biopsy forceps. Resection and retrieval were complete. Two sessile polyps were found in the splenic flexure. These polyps were removed with a cold biopsy forceps. Resection and retrieval were complete. Two sessile polyps were found in the proximal descending colon. These polyps were removed with a cold biopsy forceps. Resection and retrieval were complete. Three sessile polyps were found in the mid descending colon. These polyps were removed with a saline injection-lift technique using a hot snare. Resection and retrieval were complete. To prevent bleeding post-intervention, one hemostatic clip was successfully placed. There was no bleeding at the end of the procedure. Coagulation for hemostasis using argon beam at 0.3 liters/minute and 20 pompa was successful. A 20 mm polyp was found in the distal sigmoid colon. The polyp was sessile. The polyp was removed with a saline injection-lift technique using a hot snare. Resection and retrieval were complete. A 8 mm polyp was found in the distal descending colon. The polyp was sessile. The polyp was removed with a hot snare. Resection and retrieval were complete. A 9 mm polyp was found in the proximal sigmoid colon. The polyp was sessile. The polyp was removed with a hot snare. Resection and retrieval were complete. Coagulation for hemostasis using argon beam at 0.3 liters/minute and 20 pompa was successful. A few diverticula were found in the sigmoid colon. Impression: - Preparation of the colon was fair. - Hemorrhoids found on perianal exam. - One 5 mm polyp in the mid transverse colon, removed with a cold biopsy forceps. Resected and retrieved. - Two polyps at the splenic flexure, removed with a cold biopsy forceps. Resected and retrieved. - Two polyps in the proximal descending colon, removed with a cold biopsy forceps. Resected and retrieved. - Three polyps in the mid descending colon, removed using injection-lift and a hot snare. Resected and retrieved. Clip was placed. Treated with argon beam coagulation. - One 20 mm polyp in the distal sigmoid colon, removed using injection-lift and a hot snare. Resected and retrieved. - One 8 mm polyp in the distal descending colon, removed with a hot snare. Resected and retrieved. - One 9 mm polyp in the proximal sigmoid colon, removed with a hot snare. Resected and retrieved. Treated with argon beam coagulation. - Diverticulosis in the sigmoid colon. Recommendation: - Discharge patient to home. - Resume previous diet. - Continue present medications. - Telephone my office for pathology results in 1 week. - Repeat colonoscopy in 1 year for surveillance. Procedure Code(s): --- Professional --- 74717, Colonoscopy, flexible; with removal of tumor(s), polyp(s), or other lesion(s) by snare technique 00780, 59, Colonoscopy, flexible; with biopsy, single or multiple 04022, Colonoscopy, flexible; with directed submucosal injection(s), any substance Diagnosis Code(s): --- Professional --- K64.9, Unspecified hemorrhoids D12.3, Benign neoplasm of transverse colon (hepatic flexure or splenic flexure) D12.4, Benign neoplasm of descending colon D12.5, Benign neoplasm of sigmoid colon D50.9, Iron deficiency anemia, unspecified K57.30, Diverticulosis of large intestine without perforation or abscess without bleeding CPT copyright 2017 [employer]. All rights reserved. The codes documented in this report are preliminary and upon communication lecturer review may be revised to meet current compliance requirements. Avery Horn MD 02/18/2020 9:53:14 AM This report has been signed electronically. Number of Addenda: 0 Note Initiated On: 02/18/2020 8:42 AM
--- NOTE | 2020-02-18 09:54 | OP.CCLET_ITS ---
02/18/2020 Rodo Zamorano MD [address] [place] [address] Re : Colonoscopy procedure for Aram Alvarenga Dear Dr. Zamorano This procedure was performed on Tuesday, February 18, 2020. My impressions and recommendations are as follows: Impressions : - Preparation of the colon was fair. - Hemorrhoids found on perianal exam. - One 5 mm polyp in the mid transverse colon, removed with a cold biopsy forceps. Resected and retrieved. - Two polyps at the splenic flexure, removed with a cold biopsy forceps. Resected and retrieved. - Two polyps in the proximal descending colon, removed with a cold biopsy forceps. Resected and retrieved. - Three polyps in the mid descending colon, removed using injection-lift and a hot snare. Resected and retrieved. Clip was placed. Treated with argon beam coagulation. - One 20 mm polyp in the distal sigmoid colon, removed using injection-lift and a hot snare. Resected and retrieved. - One 8 mm polyp in the distal descending colon, removed with a hot snare. Resected and retrieved. - One 9 mm polyp in the proximal sigmoid colon, removed with a hot snare. Resected and retrieved. Treated with argon beam coagulation. - Diverticulosis in the sigmoid colon. Recommendations : - Discharge patient to home. - Resume previous diet. - Continue present medications. - Telephone my office for pathology results in 1 week. - Repeat colonoscopy in 1 year for surveillance. My findings are described in the full procedure note, which is enclosed. If I can be of further assistance, please feel free to contact me at Doctor phone number(s): Work: . Sincerely, Avery Horn MD 02/18/2020 9:53:14 AM This report has been signed electronically.
== END 2020-02-18 11:21 | disposition home or self-care (01) ==
LOC: EN 07:33 → AC 07:35
PROVIDERS: Anesthesiology; PCP Family Medicine; Referring Provider Family Medicine; Visit Provider Surgery
PROC: 0DJD8ZZ Inspection of Lower Intestinal Tract, Via Natural or Artificial Opening Endoscopic (ICD-10-PCS; CPT 45378; principal; 2020-02-18 08:25)
DX: D50.9 Iron deficiency anemia, unspecified (principal); R07.9 Chest pain, unspecified; D12.4 Benign neoplasm of descending colon; D12.5 Benign neoplasm of sigmoid colon; E78.5 Hyperlipidemia, unspecified; E66.9 Obesity, unspecified; K21.0 Gastro-esophageal reflux disease with esophagitis; K44.9 Diaphragmatic hernia without obstruction or gangrene; K29.50 Unspecified chronic gastritis without bleeding; K64.9 Unspecified hemorrhoids; D12.3 Benign neoplasm of transverse colon; K57.30 Diverticulosis of large intestine without perforation or abscess without bleeding; I65.23 Occlusion and stenosis of bilateral carotid arteries; Z68.30 Body mass index [BMI] 30.0-30.9, adult; I25.10 Atherosclerotic heart disease of native coronary artery without angina pectoris; F17.200 Nicotine dependence, unspecified, uncomplicated; I73.9 Peripheral vascular disease, unspecified; Z87.19 Personal history of other diseases of the digestive system; Z79.899 Other long term (current) drug therapy; Z79.02 Long term (current) use of antithrombotics/antiplatelets; Z87.11 Personal history of peptic ulcer disease; Z90.49 Acquired absence of other specified parts of digestive tract; Z11.59 Encounter for screening for other viral diseases
CPT/HCPCS: 43239; 45380; 45381; 45385; 87635; 88305; 88341; 88342; G2023; J7120; A4216; J2405; U0003

== ENCOUNTER → 2020-02-22 16:09 | Outpatient (CLI) | payer MEDICARE, BC, SELFPAY ==
[2020-02-22 11:33] VITALS: BMI 31.1
[2020-02-22 17:27] LABS: Anion Gap 4 (5-15); BUN 9 mg/dL (7-18); BUN/Creat Ratio 11.1 RATIO (10-20); Calcium,Total 8.5 mg/dL (8.5-10.1); Chloride 107 mmol/L (98-107); Creatinine, Serum 0.81 mg/dL (0.70-1.30); EST Glomerular Filtration Rate 98 mL/min (>60); Est Glom Filt Rate - Afr Amer 119 mL/min (>60); Glucose 89 mg/dL (74-106); Magnesium 2.3 mg/dL (1.6-2.6); Potassium 3.6 mmol/L (3.5-5.1); Sodium Level 138 mmol/L (136-145)
== END ==
PROVIDERS: PCP Family Medicine; Referring Provider Physician Assistant Medical; Visit Provider Physician Assistant Medical
DX: I25.10 Atherosclerotic heart disease of native coronary artery without angina pectoris (principal); I10 Essential (primary) hypertension; E87.6 Hypokalemia
CPT/HCPCS: 36415; 80048; 83735

== ENCOUNTER 2020-03-12 19:23 | Emergency (ER) | payer MEDICARE, BC, SELFPAY ==
[2020-02-22 11:33] VITALS: BMI 31.1
[2020-03-12 19:23] VITALS: BP 182/67; PULSE 70; RESP 15; TEMP 36.7; O2SAT 100; BMI 30.7
--- NOTE | 2020-03-12 20:35 | CT_ITS ---
STUDY: CT ABDOMEN AND PELVIS WITH CONTRAST REASON FOR EXAM: Male, 74 years old. Epigastric pain, history of bowel resection and appendectomy RADIATION DOSAGE (If Supplied By Facility): CTDIvol = ( 19.56 ) mGy, DLP = ( 1186.28 ) mGycm TECHNIQUE: Transaxial images were obtained from the dome of the diaphragm to the symphysis pubis without oral contrast. IV 100mL Isovue-370 was administered. Sagittal and coronal images were reconstructed. Individualized dose optimization techniques were used for this CT. COMPARISON: 12/26/2019 FINDINGS: The visualized lung bases are unremarkable. The visualized portions of the heart are within normal limits. Calcified granulomata in the liver are again seen. Normal gallbladder and extrahepatic biliary system. Normal spleen. Normal pancreas. Normal bilateral adrenal glands. There again are small cyst in the lower pole of both kidneys. There are bilateral renal vascular calcifications. There is no evidence of hydronephrosis. Thickening of the gastric antrum and pylorus. Normal small intestine. Status post section of the cecum. No evidence of acute diverticulitis. There is thickening of the sigmoid colon probably due to underdistention. There is diffuse atherosclerotic calcification of the abdominal aorta and both iliac arteries, without a demonstrated aneurysm. Normal inferior vena cava. Normal retroperitoneum. Normal urinary bladder. There are prostatic calcifications. Normal abdominal wall. There are mild degenerative changes of the visualized lumbar spine. CT/Abdomen/Pelvis W IV Cont ONLY IMPRESSION: 1. Thickening of the gastric antrum and pylorus. Gastritis cannot be excluded. 2. Status post partial right hemicolectomy. 3. No evidence of bowel obstruction. 4. Otherwise no demonstrated acute process. Electronically Signed: Lars Marmolejo MD at 22:46 EDT Tel , Service support ,
[2020-03-12] MEDS: Mag Hydrox/Al Hydrox/Simeth 30 ML UDC PO (20:45)
[2020-03-12 20:56] LABS: Bacteria 0 SEEN /hpf (None Seen); Mucous, Urine 0 SEEN /hpf (<or=2+); Red Blood Cells-Urine 0 SEEN /hpf (0-5); White Blood Cells 0 SEEN /hpf (0-5)
[2020-03-12 20:59] LABS: Absolute Lymphocyte Count 2.62 X10^3/uL (0.83-4.51); Absolute Neutrophil Count 2.9 X10^3/uL (2.0-7.7); Basophil# 0.04 X10^3/uL; Basophil% 0.6 % (0-1); Eosinophil# 0.25 X10^3/uL; Hematocrit 33.1 % (40-54); Hemoglobin 10.5 g/dL (13.0-16.5); Lymphocyte # 2.62 X10^3/ul (4.0); Mean Corp Hgb Conc 31.7 g/dL (32-36); Mean Corpuscular Hgb 27.3 pg (27.0-32.0); Mean Platelet Vol. 9.1 fl (6.2-12.0); Monocyte# 0.39 X10^3/uL; Monocyte% 6.3 % (0-10); NRBC Flagged by Analyzer 0 % (0-5); Neutrophil # 2.93 X10^3/uL (2.7-7.7); Neutrophil % 46.9 % (47-70); Platelet Count 166 K/mm3 (150-450); RBC Distribution Width CV 16.3 % (11.6-14.6); RBC Distribution Width SD 50.4 fl (35.1-43.9); Red Blood Count 3.85 M/mm3 (4.6-6.2); White Blood Count 6.2 K/mm3 (4.4-11.0)
[2020-03-12 21:01] LABS: Color, Urine Yellow (Yellow); Glucose, Dipstick Normal (Normal); Ketone-Dipstick 5 mg/dl (Negative); Leukocyte Esterase-Dipstick Negative /ul (Negative); Nitrite-Dipstick Negative (Negative); Occult Blood-Urine Negative /ul (Negative); Protein-Dipstick 15 mg/dl (Negative); Specific Gravity, Urine 1.015 (1.002-1.030); Urine Bilirubin Dipstick Negative (Negative); Urine Clarity Clear (Clear); Urine Urobilinogen 1 mg/dl (Normal); Urine pH 6.5 (5.0 - 8.0)
[2020-03-12 21:07] LABS: Squamous Epithelial Cells - UA 0-5 SEEN /hpf (0-5)
[2020-03-12 21:18] LABS: AST(SGOT) 18 U/L (15-37); Alanine Aminotransfer ALT/SGPT 22 U/L (16-61); Albumin, Serum 3.4 g/dL (3.2-5.0); Alkaline Phosphatase 43 U/L (45-117); Anion Gap 5 (5-15); BUN 13 mg/dL (7-18); BUN/Creat Ratio 17.2 RATIO (10-20); Calcium,Total 8.7 mg/dL (8.5-10.1); Chloride 110 mmol/L (98-107); Creatinine, Serum 0.76 mg/dL (0.70-1.30); EST Glomerular Filtration Rate 107 mL/min (>60); Est Glom Filt Rate - Afr Amer 130 mL/min (>60); Globulin 3.4 g/dL (2.2-4.2); Glucose 96 mg/dL (74-106); Lipase 115 U/L (73-393); Potassium 3.8 mmol/L (3.5-5.1); Protein, Total 6.8 g/dL (6.4-8.2); Sodium Level 142 mmol/L (136-145)
--- NOTE | 2020-03-12 23:37 | ED.DCSUM_ITS ---
- ER Visit Summary Date of Service: 03/12/20 Chief Complaint: Epigastric pain History of Present Illness: The patient is a 74 M with epigastric pain for months. It was worse over the past 2 days. Worse with swallowing. Associated with diarrhea and nausea. He had an upper and lower endoscopy earlier this month for the same symptoms. He was diagnosed with a hiatal hernia. He has gradually started introducing new solid foods. He had a bologna sandwich yesterday which seemed to make his symptoms worse. This evening, he had a hamburger which made his symptoms worse. No other associated complaints. Physical Examination: Hypertensive but otherwise vitals unremarkable. Heart regular. Lungs clear. Abdomen soft and nontender. Patient does exhibit what appears to be intermittent pain where he grimaces. Test Results: Hemoglobin 10.5, stable. Metabolic panel unremarkable. Lipase normal. Urinalysis unremarkable. CT of his abdomen and pelvis showed a thickened gastric antrum and pylorus concerning for gastritis. He has postoperative changes but nothing acute otherwise. Emergency Department Course and Treatment: Patient was treated with a GI cocktail while awaiting results. This did help, but then his symptoms recurred. On reevaluation, he was having recurrence pain. No new or different symptoms. I reviewed his results. I was concerned for gastritis. He does take a PPI already. Will add Carafate as he would like to go home and follow-up with his surgeon, Dr. Horn. I advised admission if the patient is unable to tolerate p.o. or has significant pain, and he declined. He would like to follow-up as an outpatient but will return if worse. Treatment Plan: As above Disposition: Discharge Impression: Epigastric pain This note was generated with [employer] dictation software. It may contain incorrect words, spelling, and punctuation that were not noted in review of the chart prior to signing ED Disposition - Plan for ED Patient: Referrals: Rodo Zamorano MD [Primary Care Provider] -
--- NOTE | 2020-03-12 23:40 | ED.DEP ---
ED Disposition - Plan for ED Patient: Instructions: ED Unknown Causes of Abdominal Pain Male Prescriptions: Sucralfate [Carafate] 1 gm PO 4X/DAY #120 tab Prescription Printed Referrals: Avery Horn MD [STAFF PHYSICIAN] -
[2020-03-12 23:54] VITALS: BP 175/63; PULSE 76; RESP 16; O2SAT 98
== END 2020-03-12 23:55 | disposition home or self-care (01) ==
LOC: ED 20:38
PROVIDERS: Emergency Provider Emergency Medicine; PCP Family Medicine
DX: R10.13 Epigastric pain (principal); I25.10 Atherosclerotic heart disease of native coronary artery without angina pectoris; E78.00 Pure hypercholesterolemia, unspecified; K21.9 Gastro-esophageal reflux disease without esophagitis
CPT/HCPCS: 74177; 80053; 81001; 83690; 85025; 99284; Q9967; A4216

== ENCOUNTER → 2020-04-07 08:53 | Outpatient (CLI) | payer MEDICARE, BC, SELFPAY ==
[2020-03-22 09:04] VITALS: BMI 30.4
[2020-04-07 10:51] LABS: Cholesterol 125 mg/dL (200); High Density Lipoprotein 37 mg/dL; Triglycerides 97 mg/dL; Very Low Density Lipoprotein 19 mg/dL (5-40)
== END ==
PROVIDERS: PCP Family Medicine; Referring Provider Family Medicine; Visit Provider Family Medicine
DX: I10 Essential (primary) hypertension (principal)
CPT/HCPCS: 36415; 80061